=== PATIENT | female | born 1945 | race Caucasian/White ===

== ENCOUNTER 2023-11-17 11:32 | Inpatient (IN) ==
--- NOTE | 2023-11-17 12:28 | XRay Report ---
XR chest 1V portable HISTORY: Weakness. stroke alert COMPARISON: None. FINDINGS: There are low lung volumes. No pneumothorax. The heart is mildly enlarged. Spinal stimulato r leads are noted. There is mild central pulmonary vascular congestion without overt edema. There are trace bilateral pleural effusions. Degenerative changes within the shoulders. No acute fractures louise ntified. A few bibasilar linear densities favor subsegmental atelectasis. IMPRESSION: Cardiomegaly with mild pulmonary vascular congestion and trace bilateral pleural effusions. ACT 112: Negative or not required by law. Electronically signed by: Tom Menon M.D. 11/17/2023 12:27 PM
[2023-11-17 12:34] LABS: Albumin Globulin Ratio 1.6 (0.9-2); Albumin Level 4.1 gm/dl (3.4-5.0); BUN Creatinine Ratio 24.7 (10-20); Bilirubin,Total 0.4 mg/dl (0.2-1.0); Calcium 9.4 mg/dl (8.6-10.3); Creatinine Clr Calc Pharmacy 50.9 ml/min; Est GFR (African American) 64.8 ml/min; Est GFR (Non-African American) 55.9 ml/min; Globulin 2.6 gm/dl (2.5-4.0); Potassium 4.3 mmol/L (3.5-5.1); Total Protein 6.7 gm/dl (6.0-8.3)
[2023-11-17 12:36] LABS: iSTAT Creatinine 0.9 mg/dl (0.6-1.3); iSTAT Hemoglobin 14.6 g/dl (12.0-16.0); iSTAT Ionized Calcium 1.19 mmol/l (1.12-1.32); iSTAT Potassium 4.1 mmol/L (3.3-5.0)
[2023-11-17] MEDS ORDERED: OPTIRAY 320 125ml IV ONE (12:38)
[2023-11-17 12:39] LABS: Hematocrit (blood only) 43.2 % (37.0-47.0); Hemoglobin 14.8 g/dl (12.0-16.0); Mean Corpuscular Hemoglobin 32.2 pg (25.0-34.0); Mean Corpuscular Hgb Conc 34.3 g/dL (32.0-36.0); Mean Corpuscular Volume 93.9 fL (80.0-100.0); Mean Platelet Volume 9.5 fL (9.4-12.4); Platelet Count 257 K/uL (130-400); RDW Coefficient of Variation 13.6 % (11.5-14.5); RDW Standard Deviation 46.6 fL (36.4-46.3); White Blood Count 11.14 K/ul (4.8-10.8)
[2023-11-17 12:46] LABS: INR 0.9 (0.9-1.1); Partial Thromboplastin Ratio 0.8; Partial Thromboplastin Time 23 Seconds (21-31); Prothrombin Time 10.3 Seconds (9.0-12.0)
--- NOTE | 2023-11-17 12:54 | Emergency Department Note ---
Impression & Plan Stroke ED Provider Note NAME: IVETH WATT AGE: 78 SEX: F : 1945 ARRIVES VIA: Ambulance INFORMANT: Patient, ED PROVIDER(S): Bethany Ayoub MD CHIEF COMPLAINT: Left-sided weakness HPI: This is a 78-year-old female presenting for left-sided weakness. Patient states that for the past few days she has noticed a possible facial droop as well as somewhat slurred speech. She is evaluated by a physician at her memory care unit yesterday and was thought to be related to a prednisone tapering dose. Woke up this morning with symptoms of left-sided upper and lower extremity weakness as well as worsening facial droop. Patient at this time tells me that she cannot tell me exactly when this started, at minimum over 1 day ago. Otherwise patient is generally able to ambulate on her own and do her daily activities. ROS: See above HPI for pertinent positives & negatives. A total of 10 systems reviewed and were otherwise negative. PAST MEDICAL HISTORY: See Below PAST SURGICAL HISTORY: See Below FAMILY HISTORY: See Below SOCIAL HISTORY: See Below HOME MEDICATIONS: See Below ALLERGIES: See Below VITALS: See Below PHYSICAL EXAMINATION: General: resting comfortably in no acute distress Head: Normocephalic and atraumatic Eyes: Normal inspection, extraocular muscles intact Ear, nose, throat: Normal external exam Neck: Normal range of motion Respiratory: lungs clear to auscultation bilaterally Cardiovascular: Regular rate/rhythm, no murmur GI: soft, nontender, no guarding or rebound Extremities: nontender, moves all extremities Neuro: The patient awake and alert, appropriately conversive, 3/5 strength in left upper and lower extremity, 5/5 strength in right upper and lower extremity, right-sided facial droop Skin: Warm, dry, and intact MEDICAL DECISION MAKING: This 78-year-old female presenting for left-sided weakness. Patient has a clear constellation of stroke symptoms such as left-sided weakness, right-sided facial droop. No aphasia slight dysarthria. -Due to significant length of symptoms, no stroke alert was initiated as she was out of window for tPA -CT of the head reveals no acute ischemic process -CTA of the head/neck revealed no acute LVO -Will admit for further stroke workup at this time -No leukocytosis, no anemia, no electrolyte disturbances, no UTI Differential diagnosis: Stroke, UTI, hemorrhage ER treatment provided: See below Diagnostics interpreted by me: ECG: ECG independently interpreted by me with normal sinus rhythm with PVCs, rate of 83, first-degree AV block, bifascicular block normal QTc, no ST segment elevations consistent with STEMI criteria Cardiac Monitoring: An order was placed for continuous cardiac monitoring. The monitor shows a rate of 80 with sinus rhythm. Laboratory studies: As stated above and show below. Imaging studies: See below. Past Med/Surg History Medical History (Updated 11/18/23 @ 19:51 by Bethany Ayoub MD) Constipation Mixed urge and stress incontinence Depression CAD (coronary atherosclerotic disease) Rheumatoid arthritis Cognitive communication deficit Chronic pain syndrome Hypothyroidism Asthma GERD (gastroesophageal reflux disease) Hypertension Unspecified dementia, unspecified severity, without behavioral disturbance, psychotic disturbance, mood disturbance, and anxiety Social History Smoking Status: Never smoker Hx Alcohol Use: No Hx Substance Use: No Preferred Language: Luxembourgish Communication Ability: Impaired Environmental Monitoring Specialist Required: No Current Living Situation: Senior Living Current Living Situation Comment: [facility] Feels Safe at Home: Yes Assistive Devices: Wheelchair Allergies Allergies Allergy/AdvReac Type Severity Reaction Status Date / Time ibuprofen Allergy Unknown Unknown Verified 11/17/23 14:56 propylthiouracil Allergy Unknown Unknown Verified 11/17/23 14:56 Home Meds Home Medications Medication Instructions Recorded Confirmed Milk of Magnesia 30 ml PO DAILY PRN Constipation 11/17/23 11/17/23 Tums 2 tab PO Q6H PRN indigestion 11/17/23 11/17/23 acetaminophen 650 mg CO Q6H PRN Fever 11/17/23 11/17/23 acetaminophen 325 mg tablet 650 mg PO Q6H PRN pain 1-4 11/17/23 11/17/23 (Tylenol) acetaminophen 325 mg tablet 650 mg PO Q6H PRN temp >100 11/17/23 11/17/23 (Tylenol) amlodipine 2.5 mg tablet 2.5 mg PO .@79911/17/23 11/17/23 aspirin 81 mg tablet,delayed 81 mg PO .@0800 11/17/23 11/17/23 release bisacodyl 10 mg rectal suppository 10 mg CO DAILY PRN Constipation 11/17/23 11/17/23 (Dulcolax (bisacodyl)) clopidogrel 75 mg tablet 75 mg PO .@79911/17/23 11/17/23 conjugated estrogens 0.625 mg/gram 1 applic vaginal . CHENTE SHARMA @ 11/17/23 11/17/23 vaginal cream (Premarin) 2029 cyanocobalamin (vitamin B-12) 2,500 mcg sublingual .@79911/17/23 11/17/23 2,500 mcg sublingual tablet diclofenac sodium 1 % topical gel 1 inch topical .0830,1230,1630,202911/17/23 11/17/23 docusate sodium 100 mg capsule 200 mg PO .@202911/17/23 11/17/23 duloxetine 60 mg capsule,delayed 60 mg PO .@202911/17/23 11/17/23 release folic acid 1 mg tablet 1 mg PO .@79911/17/23 11/17/23 furosemide 20 mg tablet 20 mg PO .@79911/17/23 11/17/23 hydrocodone 10 mg-acetaminophen 1 tab PO Q6H PRN pain 5-10 11/17/23 11/17/23 325 mg tablet isosorbide mononitrate 60 mg 60 mg PO .@79911/17/23 11/17/23 tablet,extended release 24 hr levothyroxine 125 mcg tablet 125 mcg PO .@42911/17/23 11/17/23 melatonin 3 mg tablet 3 mg PO .@202911/17/23 11/17/23 methenamine hippurate 1 gram tablet 1 g PO .@202911/17/23 11/17/23 mirabegron 50 mg tablet,extended 50 mg PO .@79911/17/23 11/17/23 release 24 hr (Myrbetriq) mirtazapine 30 mg tablet 30 mg PO .@79911/17/23 11/17/23 omega-3 fatty acids 1,000 mg PO .@79911/17/23 11/17/23 potassium chloride 10 mEq 10 meq PO .@0830, 1630 11/17/23 11/17/23 tablet,extended release prednisone 10 mg tablet 10 mg PO .Nov & 11/17/23 11/17/23 propylene glycol 0.6 % eye drops 2 drp ophthalmic (eye) DAILY PRN 11/17/23 11/17/23 (Systane Balance) Dry Eye(S) sodium phosphates 19 gram-7 118 ml CO DAILY PRN Constipation 11/17/23 11/17/23 gram/118 mL enema (Fleet Enema) Results & Data (ED) Vital Signs Vital Signs - 24 hr 11/17/23 11:40 11/17/23 11:50 11/17/23 12:03 Temperature 36.9 C Temperature Source Oral Pulse Rate 83 85 Pulse Strength Normal Respiratory Rate 20 Respiratory Effort / Characteristics Non-Labored Respiratory Depth Normal Respiratory Pattern Regular Blood Pressure 163/81 H Blood Pressure Mean 108 Blood Pressure Position Lying Pulse Oximetry 95 95 Oxygen Delivery Method Room Air Room Air Sepsis Recent Fever Within 48 Hours No Sepsis New/Unexplained Change in Mental Status No Sepsis Action Taken by Nursing No Action Required 11/17/23 12:20 Temperature Temperature Source Pulse Rate Pulse Strength Respiratory Rate Respiratory Effort / Characteristics Respiratory Depth Respiratory Pattern Blood Pressure Blood Pressure Mean Blood Pressure Position Pulse Oximetry 98 Oxygen Delivery Method Room Air Sepsis Recent Fever Within 48 Hours Sepsis New/Unexplained Change in Mental Status Sepsis Action Taken by Nursing Laboratory Data 11/18/23 03:23 11/18/23 03:23 Lab Results 11/17/23 11/17/23 11/17/23 Range/Units 11:44 11:50 12:20 WBC 11.14 H (4.8-10.8) K/ul RBC 4.60 (4.20-5.40) M/uL Hgb 14.8 (12.0-16.0) g/dl POC Hgb 14.6 (12.0-16.0) g/dl Hct 43.2 (37.0-47.0) % POC Hct 43 (37-47) % MCV 93.9 (80.0-100.0) fL MCH 32.2 (25.0-34.0) pg MCHC 34.3 (32.0-36.0) g/dL RDW Std Deviation 46.6 H (36.4-46.3) fL RDW Coeff of Julius 13.6 (11.5-14.5) % Plt Count 257 (130-400) K/uL MPV 9.5 (9.4-12.4) fL PT 10.3 (9.0-12.0) Seconds INR 0.9 (0.9-1.1) APTT 23 (21-31) Seconds PTT Ratio 0.8 POC Sodium 139 (135-144) mmol/L Sodium 138 (136-145) mmol/L POC Potassium 4.1 (3.3-5.0) mmol/L Potassium 4.3 (3.5-5.1) mmol/L POC Chloride 103 (101-112) mmol/L Chloride 103 (98-107) mmol/L Carbon Dioxide 26 (21-32) mmol/L POC Total CO2 24 (24-31) mmol/L Anion Gap 9 (3-11) POC Anion Gap 17.0 (16-25) mmol/L POC BUN 27 H (7-18) mg/dl BUN 24 H (6-23) mg/dl Creatinine 0.97 (0.6-1.2) mg/dl POC Creatinine 0.9 (0.6-1.3) mg/dl Est Cr Clr Drug Dosing 50.9 ml/min Est GFR ( Amer) 64.8 ml/min Est GFR (Non-Af Amer) 55.9 ml/min BUN/Creatinine Ratio 24.7 H (10-20) Glucose 177 H (70-99(Fasting)) mg/dl POC Glucose 252 H (70-99) mg/dl POC Glucose (other) 178 H (70-99) mg/dl Calcium 9.4 (8.6-10.3) mg/dl POC Ioniz Calcium Latrice 1.19 (1.12-1.32) mmol/l Magnesium 2.0 (1.7-2.4) mg/dl Total Bilirubin 0.4 (0.2-1.0) mg/dl AST 15 (13-39) U/L ALT 8 (7-52) U/L Alkaline Phosphatase 88 (34-104) U/L Total Protein 6.7 (6.0-8.3) gm/dl Albumin 4.1 (3.4-5.0) gm/dl Globulin 2.6 (2.5-4.0) gm/dl Albumin/Globulin Ratio 1.6 (0.9-2) Administered Medications Hydrocodone Bitart/Acetaminophen (Hydrocodone/Acetaminophen 10/325 Tab) 1 tab PO Q6H PRN PRN Reason: pain 5-10 Stop: 12/01/23 18:01 Last Admin: 11/17/23 21:46 Dose: 1 tab Documented By: JUSTIN Amlodipine Besylate (Amlodipine Besylate 5 Mg Tab) 2.5 mg PO [facility] Stop: 12/18/23 08:59 Last Admin: 11/18/23 10:42 Dose: 2.5 mg Documented By: HERMANN Aspirin (Aspirin 81 Mg Ectab) 81 mg PO [facility] Stop: 12/18/23 08:59 Last Admin: 11/18/23 10:42 Dose: 81 mg Documented By: HERMANN Atorvastatin Calcium (Atorvastatin 40 Mg Tab) 80 mg PO DAILY [facility] Stop: 12/18/23 11:59 Last Admin: 11/18/23 12:52 Dose: Not Given Documented By: HARRISON Clopidogrel Bisulfate (Clopidogrel Bisulfate 75 Mg Tab) 75 mg PO [facility] Stop: 12/18/23 08:59 Last Admin: 11/18/23 10:42 Dose: 75 mg Documented By: HERMANN Diclofenac Sodium (Diclofenac Sod 1% Gel 100 Gm Tube) 2 - 4 gm EXT QID@0830,1230,1630,2030 [facility]; Protocol Stop: 12/17/23 20:29 Last Admin: 11/18/23 18:48 Dose: 2 gm Documented By: Admin: 11/18/23 12:53 Dose: 2 gm Documented By: Admin: 11/18/23 10:41 Dose: 4 gm Documented By: Admin: 11/17/23 21:46 Dose: 2 gm Documented By: JUSTIN Docusate Sodium (Docusate Sodium 100 Mg Cap) 200 mg PO [facility] Stop: 12/17/23 20:59 Last Admin: 11/17/23 21:46 Dose: 200 mg Documented By: JUSTIN Duloxetine HCl (Duloxetine Hcl 60 Mg Cap) 60 mg PO [facility] Stop: 12/17/23 20:59 Last Admin: 11/17/23 21:47 Dose: 60 mg Documented By: JUSTIN Estrogens Conjugated (Premarin Vag Crm 14 Appln/30 Gm Tube) 1 appln PV TuTh@2030 [facility] Stop: 12/17/23 20:29 Last Admin: 11/17/23 21:47 Dose: Not Given Documented By: JUSTIN Folic Acid (Folic Acid 1 Mg Tab) 1 mg PO DAILY [facility] Stop: 12/18/23 08:59 Last Admin: 11/18/23 10:42 Dose: 1 mg Documented By: HERMANN Furosemide (Furosemide 20 Mg Tab) 20 mg PO DAILY [facility] Stop: 12/18/23 08:59 Last Admin: 11/18/23 10:42 Dose: 20 mg Documented By: HERMANN Isosorbide Mononitrate (Isosorbide [place] Extended Rel 60 Mg Tabcr) 60 mg PO DAILY [facility] Stop: 12/18/23 08:59 Last Admin: 11/18/23 10:43 Dose: 60 mg Documented By: HERMANN Levothyroxine S[facility] ([facility] 125 [facility]g Tablet) [facility]: 12/18/23 06:29 Last Admin: 11/18/23 07:05 Dose: 125 mcg Documented By: JUSTIN Melatonin (Melatonin 3 Mg Tab) 3 mg PO [facility] Stop: 12/17/23 20:59 Last Admin: 11/17/23 21:47 Dose: 3 mg Documented By: JUSTIN Methenamine Hippurate (Methenamine Hippurate 1 Gm Tab) 1 gm PO BID [facility] Stop: 12/17/23 20:59 Last Admin: 11/18/23 10:43 Dose: 1 gm Documented By: Admin: 11/17/23 21:47 Dose: 1 gm Documented By: JUSTIN Mirtazapine (Mirtazapine Tab 15 Mg Tab) 30 mg PO DAILY [facility] Stop: 12/18/23 08:59 Last Admin: 11/18/23 10:43 Dose: 30 mg Documented By: HERMANN Potassium Chloride (Potassium Chloride 10 Meq Tabcr) 10 meq PO BID [facility] Stop: 12/17/23 20:59 Last Admin: 11/18/23 10:43 Dose: 10 meq Documented By: Admin: 11/17/23 21:46 Dose: 10 meq Documented By: JUSTIN Vibegron (Vibegron 75 Mg Tab) 75 mg PO DAILY [facility]; Protocol Stop: 12/18/23 08:59 Last Admin: 11/18/23 10:43 Dose: 75 mg Documented By: HERMANN Discontinued Medications Aspirin (Aspirin 81 Mg Chew) 243 mg PO NOW STA Stop: 11/17/23 13:45 Last Admin: 11/17/23 15:38 Dose: Not Given Documented By: AYDEN Aspirin (Aspirin 300 Mg Supp) 300 mg CO ONE ONE Stop: 11/17/23 15:37 Last Admin: 11/17/23 16:15 Dose: 300 mg Documented By: SAJAN Ioversol (Optiray 320 125ml) 115 ml IV ONCE ONE Stop: 11/17/23 12:39 Last Admin: 11/17/23 12:42 Dose: 115 ml Documented By: WYATT Imaging Data Radiologist's Impression: Chest X-Ray 11/17/23 12:03 XR chest 1V portable HISTORY: Weakness. stroke alert COMPARISON: None. FINDINGS: There are low lung volumes. No pneumothorax. The heart is mildly enlarged. Spinal stimulator leads are noted. There is mild central pulmonary vascular congestion without overt edema. There are trace bilateral pleural effusions. Degenerative changes within the shoulders. No acute fractures identified. A few bibasilar linear densities favor subsegmental atelectasis. IMPRESSION: Cardiomegaly with mild pulmonary vascular congestion and trace bilateral pleural effusions. ACT 112: Negative or not required by law. Electronically signed by: Tom Menon M.D. 11/17/2023 12:27 PM Discharge Plan Visit Data Chief Complaint: Stroke/CVA Symptoms ED Provider: Bethany Ayoub Discharge Problem: Stroke Patient Disposition: Admitted As Inpatient Discharge Instructions Interventions: ED Discharge Assessment Last Done: 11/17/23 18:03
--- NOTE | 2023-11-17 13:03 | CT Scan Report ---
CT SCAN OF THE BRAIN WITHOUT IV CONTRAST CLINICAL HISTORY: Neurological deficit. Stroke like symptoms. Left-sided weakness. COMPARISON STUDY: No priors. TECHNIQUE: Unenhanced axial CT scan of the brain is performed from the vertex to the skull base. A do se lowering technique was utilized adhering to the principles of ALARA. FINDINGS: Brain parenchyma: There is age-related involutional change noting moderate confluent subcortical and periventricular microangiopathic disease. There is no hemorrhage, mass effect, or evidence of acute t erritorial ischemia by CT criteria. There is heterogeneous low attenuation present within both thalam i, right greater than left. A chronic lacunar infarct is noted in the right internal capsule. No extr a-axial fluid collection is seen. Ventricles, sulci, cisterns: Prominent secondary to involutional change. Intracranial vasculature: There is atherosclerotic calcification of the cavernous carotid and vertebr al arteries. Calvarium: Unremarkable. Sinuses and mastoids: The paranasal sinuses are clear. The mastoid air cells are well pneumatized. Orbits: The bony orbits are grossly intact. IMPRESSION: 1. There is no hemorrhage, mass effect, or evidence of acute territorial ischemia by CT criteria. 2. There is heterogeneously diminished attenuation present within both thalami, right greater than le ft. This is of indeterminate chronicity. MRI correlation is recommended to assess for acute to subacu te ischemia. ACT 112: Negative or not required by law. Electronically signed by: Deng Quevedo M.D. 11/17/2023 1:02 PM
--- NOTE | 2023-11-17 13:13 | CT Scan Report ---
NECK CTA HISTORY: Stroke, L weakness TECHNIQUE: Multiaxial CT images of the neck were performed following the intravenous administration o f contrast to evaluate the major cervical vessels. 3D/MIP images were also obtained. Sagittal and cor onal reformats were reviewed. All measurements were calculated based on NASCET criteria. A dose low ering technique was utilized adhering to the principles of ALARA. COMPARISON STUDY: None. FINDINGS: The aortic arch and proximal great vessels are widely patent. There is no significant sten osis, occlusion, or dissection identified within the bilateral common carotid or vertebral arteries. Moderate calcified plaque within the bilateral carotid bifurcations. This results in up to 40% stenos is within the takeoff of the right internal carotid artery. No significant stenosis within the left i nternal carotid artery. IMPRESSION: No high-grade stenosis, occlusion, or dissection identified within the carotid or vertebral arteries. ACT 112: Negative or not required by law. Electronically signed by: Tom Menon M.D. 11/17/2023 1:11 PM
--- NOTE | 2023-11-17 13:23 | CT Scan Report ---
CT angio head w con CLINICAL HISTORY: 78 years-old Female with LVO, L weakness. Acute strokelike symptoms with left-si ded weakness COMPARISON STUDY: Head CT of same day TECHNIQUE: Following the IV administration of 115 cc of Optiray, CT angiogram of the brain was perfor med from the skull base to the vertex. Images are reviewed in the axial, sagittal, and coronal planes . 3-D MIPS images are created and assessed. IV contrast was administered without complication. All me asurements were obtained according to NASCET criteria. A dose lowering technique was utilized adherin g to the principles of ALARA. FINDINGS: Motion degraded exam. CT ANGIOGRAM OF THE BRAIN: Atherosclerosis of the clinoid and supraclinoid segments of the internal carotid arteries without hig h-grade stenosis. There is moderate multifocal narrowing throughout the right middle cerebral artery. The left middle cerebral artery is generally patent. The anterior cerebral arteries are patent. Mild to moderate multifocal luminal narrowing of the posterior cerebral arteries. There is no aneurysm, h igh-grade stenosis, or proximal branch occlusion identified. Dural sinuses appear patent. White matter hypodensities are noted with ill-defined additional hypodense foci within the bilateral thalami and lentiform nuclei. IMPRESSION: 1. Moderate multifocal luminal narrowing throughout the right middle cerebral artery. 2. No aneurysm, dissection, high-grade stenosis or proximal branch occlusion identified. 3. Nonspecific ill-defined white matter and basal ganglia hypodensities suggestive of chronic microva scular ischemic disease with age-indeterminate lacunar infarcts. ACT 112: Negative or not required by law. The above report was generated using voice recognition software. It may contain grammatical, syntax o r spelling errors. Electronically signed by: Oral Andrew M.D. 11/17/2023 1:21 PM
--- NOTE | 2023-11-17 13:40 | History & Physical Report ---
Date of Service November 17, 2023 Assessment & Plan (1) Stroke-like symptoms: Plan: Slurred speech, left-sided facial droop, left-sided UE/LE deficits in the morning of 11/17 Unclear last known well; symptoms first noticed this morning, but may have been present for the last few days Patient outside the window of TNKase eligibility Patient is unable to provide a timeline of her symptoms given confusion and memory deficits (which been ongoing due to her unspecified dementia); however, A&Ox3 on arrival Head CT on arrival revealed no hemorrhage, mass effect, or evidence of acute territorial ischemia; however, noted heterogeneously to space attenuation within both thalami, right greater than left (indeterminate chronicity) Head CTA noted moderate multifocal luminal narrowing within the right MCA; no aneurysm, dissection, or high-grade stenosis Neck CTA without high-grade stenosis, occlusion, or dissection Brain MRI ordered, pending; will hold chemical DVT PPx until MRI returns Note: MRI reached out as patient has a spinal stimulator, but does not have the remote (which is needed to place the spinal stimulator and MRI safe mode) Patient reports she has not had remote for several years Spoke with neurology who recommended repeating head CT in 6h; ordered, pending Glucose 178 on arrival Echocardiogram with bubble study ordered, pending Patient failed dysphagia screen at bedside due to facial droop; keep n.p.o. for now Aspirin 243 mg ordered (per review of center care paperwork, patient was given aspirin 81 mg on the morning of 11/17); however, given failed dysphagia screen ordered aspirin 300 mg WV Patient also takes Plavix 75 mg daily for her heart stents Neurochecks q4h Permissive hypertension; treat BP if SBP>220 or DBP>120 Fall precautions No BP, labs, IVs in the LUE PT/OT consulted; left side nonweightbearing; patient is usually on a walker at baseline Speech therapy eval given continued facial droop and slurred speech A.m. CBC, BMP, fasting lipid panel, A1c (2) Unspecified dementia, unspecified severity, without behavioral disturbance, psychotic disturbance, mood disturbance, and anxiety: Plan: A&Ox3 on arrival Confusion and memory deficits have been ongoing, per patient (3) Hypertension: Plan: BP 163/81 on arrival Permissive HTN in the setting of strokelike symptoms Continue amlodipine, isosorbide mononitrate (4) Hypothyroidism: Plan: Continue levothyroxine (5) Rheumatoid arthritis: Plan: Patient was previously started on a prednisone taper on 11/12/2023; she took prednisone 60 mg p.o. daily on 11/12 and 11/13, 50 mg p.o. daily on 11/14 and 11/15, and 40 mg p.o. daily on 11/16 and 11/17; hold prednisone for now, as this is the only recent change in medications Continue diclofenac gel; apply to hands, wrists, knees topically 4 times a day for joint pain Acetaminophen as needed for pain Hydrocodoneacetaminophen as needed for breakthrough pain (6) CAD (coronary atherosclerotic disease): Plan: Prior AL EKG on arrival showed sinus rhythm with PVCs at 83 bpm; QTc 484 Continue aspirin, Plavix daily (7) Depression: Plan: Continue duloxetine, mirtazapine (8) Mixed urge and stress incontinence: Plan: Continue mirabegron Continue methenamine hippurate, and Premarin vaginal cream for UTI prophylaxis (9) Constipation: Plan: Continue bisacodyl, docusate sodium Plan Disposition: Admit to PCU telemetry Full code Keep n.p.o. for now pending dysphagia screen, then advance to regular diet with thin consistency as tolerated VTE PPx: SCDs (will hold chemical DVT PPx for 24h in the setting of acute strokelike symptoms) History of Present Illness Chief Complaint: Stroke/CVA symptoms Primary Care Provider: [place] Rocael Rodriguez is a 78-year-old female with PMH of dementia, TIA, HTN, GERD, asthma, hypothyroidism, dysphagia, cognitive communication deficit, and chronic pain syndrome. She presented via EMS from [facility] for strokelike symptoms. Patient presents with some memory deficits, and confusion, and is not able to provide a timeline of events. She notes that she has had ongoing difficulties with memory, as well as balance and strength issues due to her rhe umatoid arthritis. However, she notes that her left-sided deficits are acute, and that she had left-sided facial droop, slurred speech this morning. Last known well was yesterday on 11/16. Patient is unsure if she is ever had a CVA in the past. Patient is wheelchair-bound at baseline; she uses a walker for exercise. She took all of her morning medications, which is managed by [facility]. Only recent change in medications was that the patient was started on a 10-day prednisone taper on 11/12 (starting at 60 mg p.o. daily) for her RA. Patient denies alcohol, tobacco, and recreational drug use. She notes she was recently exposed to someone with COVID on 11/07; however she has tested negative since and has not had symptoms. Patient is hypertensive at 163/81 at time of admission; vitals otherwise stable ED course: ROS: Patient endorses increased slurred speech, left-sided facial droop, urinary frequency, left-sided weakness worse than right, and joint pain (which she believes is a flare up of her arthritis) Patient denies fever, chills, night-sweats, difficulty swallowing, GERMAIN, changes in vision/hearing/taste/smell, cough, dizziness, lightheadedness, CP, SOB, pleuritic CP, abdominal pain, N/V/D, burning with urination, dysuria, or numbness/tingling in the arms/legs. Allergies Allergy/AdvReac Type Severity Reaction Status Date / Time ibuprofen Allergy Unknown Unknown Verified 11/17/23 14:56 propylthiouracil Allergy Unknown Unknown Verified 11/17/23 14:56 Home Medications Medication Instructions Recorded Confirmed Type Milk of Magnesia 30 ml PO DAILY PRN Constipation 11/17/23 11/17/23 History Tums 2 tab PO Q6H PRN indigestion 11/17/23 11/17/23 History acetaminophen 650 mg WV Q6H PRN Fever 11/17/23 11/17/23 History acetaminophen 325 mg tablet 650 mg PO Q6H PRN pain 1-4 11/17/23 11/17/23 History (Tylenol) acetaminophen 325 mg tablet 650 mg PO Q6H PRN temp >100 11/17/23 11/17/23 History (Tylenol) amlodipine 2.5 mg tablet 2.5 mg PO .@0800 11/17/23 11/17/23 History aspirin 81 mg tablet,delayed 81 mg PO .@00 11/17/23 11/17/23 History release bisacodyl 10 mg rectal suppository 10 mg WV DAILY PRN Constipation 11/17/23 11/17/23 History (Dulcolax (bisacodyl)) clopidogrel 75 mg tablet 75 mg PO .@0800 11/17/2304/24 History conjugated estrogens 0.625 mg/gram 1 applic vaginal . CHENTE SHARMA @ 11/17/23 11/17/23 History vaginal cream (Premarin) 2029 cyanocobalamin (vitamin B-12) 2,500 mcg sublingual .@79911/17/23 11/17/23 History 2,500 mcg sublingual tablet diclofenac sodium 1 % topical gel 1 inch topical .0830,1230,163,202911/17/23 11/17/23 History docusate sodium 100 mg capsule 200 mg PO .@202911/17/23 11/17/23 History duloxetine 60 mg capsule,delayed 60 mg PO .@202911/17/23 11/17/23 History release folic acid 1 mg tablet 1 mg PO .@79911/17/23 11/17/23 History furosemide 20 mg tablet 20 mg PO .@79911/17/23 11/17/23 History hydrocodone 10 mg-acetaminophen 1 tab PO Q6H PRN pain 5-10 11/17/23 11/17/23 History 325 mg tablet isosorbide mononitrate 60 mg 60 mg PO .@79911/17/23 11/17/23 History tablet,extended release 24 hr levothyroxine 125 mcg tablet 125 mcg PO .@42911/17/23 11/17/23 History melatonin 3 mg tablet 3 mg PO .@202911/17/23 11/17/23 History methenamine hippurate 1 gram tablet 1 g PO .@202911/17/23 11/17/23 History mirabegron 50 mg tablet,extended 50 mg PO .@79911/17/23 11/17/23 History release 24 hr (Myrbetriq) mirtazapine 30 mg tablet 30 mg PO .@79911/17/23 11/17/23 History omega-3 fatty acids 1,000 mg PO .@79911/17/23 11/17/23 History potassium chloride 10 mEq 10 meq PO .@0830, 1630 11/17/23 11/17/23 History tablet,extended release prednisone 10 mg tablet 10 mg PO .Nov & 11/17/23 11/17/23 History propylene glycol 0.6 % eye drops 2 drp ophthalmic (eye) DAILY PRN 11/17/23 11/17/23 History (Systane Balance) Dry Eye(S) sodium phosphates 19 gram-7 118 ml WV DAILY PRN Constipation 11/17/23 11/17/23 History gram/118 mL enema (Fleet Enema) Past Med/Surg History Medical History (Updated 11/17/23 @ 13:38 by Tom Kee PA-C) Constipation Mixed urge and stress incontinence Depression CAD (coronary atherosclerotic disease) Rheumatoid arthritis Cognitive communication deficit Chronic pain syndrome Hypothyroidism Asthma GERD (gastroesophageal reflux disease) Hypertension Unspecified dementia, unspecified severity, without behavioral disturbance, psychotic disturbance, mood disturbance, and anxiety Social History Smoking Status: Never smoker Preferred Language: Mohawk Feels Safe at Home: Yes Review of Systems Review of Systems: See HPI above Physical Exam Physical Exam: General: no acute distress; pleasant affect; left-sided facial droop; slurred speech; non-toxic appearing; well-nourished; cooperative HEENT: no scleral icterus; PERRLA w/ EOMs intact; moist mucus membrane; vision and hearing intact; patient demonstrates ability to protrude and wiggle tongue bilaterally; she is able to raise her eyebrows without unilateral deficits; she reports that sensation in the face is the same on both sides measured at 3 dermatomes via light touch Neck: supple; no lymphadenopathy; trachea midline; patient is able to rotate head, but exhibits some difficulty with shrugging her shoulders Skin: warm, dry without signs of tenting; no cyanosis; no rashes, bruising, lesions, or erythema noted CV: chest wall NTP; RRR; S1/S2 normal; no murmurs/rubs/gallops; pulses intact at radial, DP, and PT Lungs: no acute respiratory distress; symmetrical chest wall expansion; clear breath sounds across all lung chapman w/o adventitious sounds; no wheezing ABD: Soft, NTP; BS present; no rebound/guarding; mild distention secondary to body habitus MSK: no tics or fasciculations; nonpitting edema noted in the LEs b/l, nonerythematous; patient demonstrates ability to wiggle toes bilaterally; 5/5 RLE strength when lifting off the bed, 2/5 LLE strength when lifting off the bed; she is barely able to bend her left knee; 5/5 merchandise adjustment clerk strength in the right hand, 4/5 merchandise adjustment clerk strength in left hand; patient is unable to lift her right arm off the bed without picking up with her left; positive pronator drift; gross unilateral deficits on the left side Neuro: A&Ox3; slurred speech; she is unable to report if her sensation is intact, symmetric in the LEs or UEs bilaterally Results & Data Results & Data Vital Signs (Past 12 Hours) Vital Signs Temp Pulse Resp BP Pulse Ox O2 Del Method 11/17/23 12:20 98 Room Air 11/17/23 12:03 95 Room Air 11/17/23 11:50 85 11/17/23 11:40 36.9 C 83 20 163/81 H 95 Room Air Laboratory Results Abnormal lab results 11/17/23 11/17/23 11/17/23 Range/Units 11:44 11:50 12:20 WBC 11.14 H (4.8-10.8) K/ul RDW Std Deviation 46.6 H (36.4-46.3) fL POC BUN 27 H (7-18) mg/dl BUN 24 H (6-23) mg/dl BUN/Creatinine Ratio 24.7 H (10-20) Glucose 177 H (70-99(Fasting)) mg/dl POC Glucose 252 H (70-99) mg/dl POC Glucose (other) 178 H (70-99) mg/dl Diagnostic Findings Chest X-Ray 11/17/23 12:03 XR chest 1V portable HISTORY: Weakness. stroke alert COMPARISON: None. FINDINGS: There are low lung volumes. No pneumothorax. The heart is mildly enlarged. Spinal stimulator leads are noted. There is mild central pulmonary vascular congestion without overt edema. There are trace bilateral pleural effusions. Degenerative changes within the shoulders. No acute fractures identified. A few bibasilar linear densities favor subsegmental atelectasis. IMPRESSION: Cardiomegaly with mild pulmonary vascular congestion and trace bilateral pleural effusions. ACT 112: Negative or not required by law. Electronically signed by: Tom Menon M.D. 11/17/2023 12:[address] 11/17/23 12:03 CT SCAN OF THE BRAIN WITHOUT IV CONTRAST CLINICAL HISTORY: Neurological deficit. Stroke like symptoms. Left-sided weakness. COMPARISON STUDY: No priors. TECHNIQUE: Unenhanced axial CT scan of the brain is performed from the vertex to the skull base. A dose lowering technique was utilized adhering to the principles of ALARA. FINDINGS: Brain parenchyma: There is age-related involutional change noting moderate confluent subcortical and periventricular microangiopathic disease. There is no hemorrhage, mass effect, or evidence of acute territorial ischemia by CT criteria. There is heterogeneous low attenuation present within both thalami, right greater than left. A chronic lacunar infarct is noted in the right internal capsule. No extra-axial fluid collection is seen. Ventricles, sulci, cisterns: Prominent secondary to involutional change. Intracranial vasculature: There is atherosclerotic calcification of the cav ernous carotid and vertebral arteries. Calvarium: Unremarkable. Sinuses and mastoids: The paranasal sinuses are clear. The mastoid air cells are well pneumatized. Orbits: The bony orbits are grossly intact. IMPRESSION: 1. There is no hemorrhage, mass effect, or evidence of acute territorial ischemia by CT criteria. 2. There is heterogeneously diminished attenuation present within both thalami, right greater than left. This is of indeterminate chronicity. MRI correlation is recommended to assess for acute to subacute ischemia. ACT 112: Negative or not required by law. Electronically signed by: Deng Quevedo M.D. 11/17/2023 1:02 PM Head CTA 11/17/23 12:03 CT angio head w con CLINICAL HISTORY: 78 years-old Female with LVO, L weakness. Acute strokelike symptoms with left-sided weakness COMPARISON STUDY: Head CT of same day TECHNIQUE: Following the IV administration of 115 cc of Optiray, CT angiogram of the brain was performed from the skull base to the vertex. Images are reviewed in the axial, sagittal, and coronal planes. 3-D MIPS images are created and assessed. IV contrast was administered without complication. All measurements were obtained according to NASCET criteria. A dose lowering technique was utilized adhering to the principles of ALARA. FINDINGS: Motion degraded exam. CT ANGIOGRAM OF THE BRAIN: Atherosclerosis of the clinoid and supraclinoid segments of the internal carotid arteries without high-grade stenosis. There is moderate multifocal narrowing throughout the right middle cerebral artery. The left middle cerebral artery is generally patent. The anterior cerebral arteries are patent. Mild to moderate multifocal luminal narrowing of the posterior cerebral arteries. There is no aneurysm, high-grade stenosis, or proximal branch occlusion identified. Dural sinuses appear patent. White matter hypodensities are noted with ill-defined additional hypodense foci within the bilateral thalami and lentiform nuclei. IMPRESSION: 1. Moderate multifocal luminal narrowing throughout the right middle cerebral artery. 2. No aneurysm, dissection, high-grade stenosis or proximal branch occlusion identified. 3. Nonspecific ill-defined white matter and basal ganglia hypodensities suggestive of chronic microvascular ischemic disease with age-indeterminate lacunar infarcts. ACT 112: Negative or not required by law. The above report was generated using voice recognition software. It may contain grammatical, syntax or spelling errors. Electronically signed by: Oral Andrew M.D. 11/17/2023 1:21 PM Neck CTA 11/17/23 12:03 NECK CTA HISTORY: Stroke, L weakness TECHNIQUE: Multiaxial CT images of the neck were performed following the intra venous administration of contrast to evaluate the major cervical vessels. 3D/MIP images were also obtained. Sagittal and coronal reformats were reviewed. All measurements were calculated based on NASCET criteria. A dose lowering technique was utilized adhering to the principles of ALARA. COMPARISON STUDY: None. FINDINGS: The aortic arch and proximal great vessels are widely patent. There i s no significant stenosis, occlusion, or dissection identified within the bilateral common carotid or vertebral arteries. Moderate calcified plaque within the bilateral carotid bifurcations. This results in up to 40% stenosis within the takeoff of the right internal carotid artery. No significant stenosis within the left internal carotid artery. IMPRESSION: No high-grade stenosis, occlusion, or dissection identified within the carotid or vertebral arteries. ACT 112: Negative or not required by law. Electronically signed by: Tom Menon M.D. 11/17/2023 1:11 PM Code Status & VTE Plan Code Status Full code VTE Prophylaxis Plan VTE Prophylaxis will be ordered: Yes Supervising Physician Co-Signing Physician Notes Patient seen and examined, chart reviewed, case discussed with Tom Kee PA-C and I agree with the assessment and plan as above except as otherwise noted Labs and images reviewed 78-year-old female who presents with slurred speech, left upper and lower extremity deficits. Unclear last known well, symptoms began at the latest yesterday but have been present for up to potentially 1 week, is not a TNKase candidate. Head CT without acute hemorrhage or territorial ischemia but thalamic attenuation is noted and MRI is currently limited by spinal stimulator for which we do not have the remote at this time. Interval CT ordered in 6 hours. Patient clinical presentation is currently consistent with stroke outside of thrombolytic window and with no proximal/large vessel occlusion seen on angiography. Agree with secondary risk management, blood pressure control as noted, neurology consulted and ongoing antiplatelet recommendations pending. She is not able to pass bedside swallow due to left-sided facial droop, rectal aspirin ordered and speech consulted. At bedside assessment left hip flexion, elbow flexion, merchandise adjustment clerk 4 -/5 with drift and easy fatigue compared to robust 5/5 strength on the right. No sensory deficit to soft touch in hands or feet. As patient has had deficits for more than 24 hours, outside of the initial window for permissive hypertension and can treated to blood pressure goal of less than systolic 180 and continue antihypertensives at this time . agree with assessment and management as noted above PG Care Time/CCT Total # of Minutes Spent Total Time Spent with Patient: Total time spent is greater than 50% in coordination of care (as documented) at patient's floor/unit and/or counseling patient: [place] [address] INT INP/OBS CARE 3/75MIN Patient Type New History Comprehensive Exam Comprehensive Medical Decision Making High Complexity Diagnoses Stroke-like symptoms R29.90 Unspecified dementia, unspecified severity, without behavioral disturbance, psychotic disturbance, mood disturbance, and anxiety F03.90 Hypertension I10 Hypothyroidism E03.9 Rheumatoid arthritis M06.9 CAD (coronary atherosclerotic disease) I25.10 Depression F32.A Mixed urge and stress incontinence N39.46 Constipation K59.00
[2023-11-17] MEDS ORDERED: ASPIRIN 81 MG CHEW PO STA (13:44)
[2023-11-17] MEDS ORDERED: ASPIRIN CHEW 324 MG PO STA (13:44)
[2023-11-17] MEDS ORDERED: PHARMACIST DISCHARGE MED REC CONSULT PRN (14:11)
--- NOTE | 2023-11-17 14:47 | Electrocardiogram Report ---
Test Reason : Blood Pressure : / mmHG Vent. Rate : 083 BPM Atrial Rate : 083 BPM P-R Int : 202 ms QRS Dur : 144 ms QT Int : 412 ms P-R-T Axes : 031 -51 000 degrees QTc Int : 484 ms Sinus rhythm with Premature ventricular complexes or Fusion complexes Right bundle branch block Left anterior fascicular block Bifascicular block Abnormal ECG No previous ECGs available Confirmed by José Luis Jean-Baptiste ([id number]) on 11/17/2023 2:47:12 PM Referred By: Confirmed By:José Luis Jean-Baptiste
[2023-11-17] MEDS ORDERED: ASPIRIN 300 MG SUPP PR ONE (15:36)
--- NOTE | 2023-11-17 16:10 | XCELERA ---
[id number]
[2023-11-17 17:47] LABS: Appearance Urine Clear (Clear); Bilirubin Urine Negative (Negative); Blood Urine Negative (Negative); Color Urine Yellow; Glucose Urine UA Negative (Negative); Ketones Urine Negative (Negative); Leukocyte Esterase Urine Negative (Negative); Nitrite Urine Negative (Negative); Protein Urine Negative (Negative); Specific Gravity Urine 1.019 (1.000-1.030); Urobilinogen Urine Negative (Negative); pH Urine 6.5 (4.5-7.5)
[2023-11-17] MEDS ORDERED: bisacodyL 10 MG SUPP PR PRN (18:02)
[2023-11-17] MEDS ORDERED: ACETAMINOPHEN 325 MG TAB PO PRN (18:02)
[2023-11-17] MEDS ORDERED: SOD PHOSPHATE/SOD BIPHOSPHATE ENEMA 132 ML BTL PR PRN (18:02)
--- NOTE | 2023-11-17 18:32 | CT Scan Report ---
HEAD CT NONCONTRAST CT DOSE: 703.85 mGy.cm HISTORY: Follow-up abnormal head CT. Unable to perform brain MRI, head CT repeat at 6h TECHNIQUE: Multiaxial CT images of the head were performed without the use of intravenous contrast. A utomated exposure control was utilized for this study. A dose lowering technique was utilized adheri ng to the principles of ALARA. Comparison: Head CT 11/17/2023. Findings: The paranasal sinuses and mastoid air cells are clear. The calvarium and skull base are int act. There is no mass, hematoma, midline shift. White matter hypodensity is nonspecific but suggestiv e of microvascular ischemic change. The ventricles and sulci demonstrate mild age-related involutiona l changes. Small linear residual contrast seen within the brain from the prior CT examination. Patchy areas of hypodensity within the thalami and debora remains unchanged. Impression: 1. No significant change compared to the prior study. 2. Patchy areas of hypodensity within the thalami and debora remains unchanged. This could be due to ch ronic microvascular ischemic changes, demyelination, toxic/metabolic changes, or less likely central pontine myelolysis. Recommend correlation with the patient's sodium levels for further evaluation. 3. A [address] follow-up recommended to ensure stability. ACT 112: Negative or not required by law. Electronically signed by: Tom Menon M.D. 11/17/2023 6:30 PM
[2023-11-17] MEDS ORDERED: ARTIFICIAL TEARS OP PRN (18:36)
[2023-11-17] MEDS ORDERED: MAGNESIUM HYDROXIDE SUSP 30 ML UDC PO PRN (18:39)
[2023-11-17] MEDS ORDERED: PREMARIN VAG CRM 14 APPLN/30 GM TUBE PV SCH (20:30)
[2023-11-17] MEDS: POTASSIUM CHLORIDE 10 MEQ TABCR PO SCH (21:46)
[2023-11-17] MEDS: DOCUSATE SODIUM 100 MG CAP PO SCH (21:46)
[2023-11-17] MEDS: DICLOFENAC SOD 1% GEL 100 GM TUBE EXT SCH (21:46)
[2023-11-17] MEDS: HYDROcodone/ACETAMINOPHEN 10/325 TAB PO PRN (21:46)
[2023-11-17] MEDS: METHENAMINE HIPPURATE 1 GM TAB PO SCH (21:47)
[2023-11-17] MEDS: MELATONIN 3 MG TAB PO SCH (21:47)
[2023-11-17] MEDS: DULoxetine HCL 60 MG CAP PO SCH (21:47)
[2023-11-18 03:59] LABS: Basophils # (auto) 0.06 K/uL (0.00-0.20); Basophils % (auto) 0.6 %; Eosinophils # (auto) 0.13 K/uL (0.00-0.50); Eosinophils % (auto) 1.3 %; Hematocrit (blood only) 45.1 % (37.0-47.0); Hemoglobin 15.4 g/dl (12.0-16.0); Immature Granulocytes # (auto) 0.05 K/uL (0.01-0.20); Immature Granulocytes % (auto) 0.5 %; Lymphocytes # (auto) 1.65 K/uL (1.20-3.40); Lymphocytes % (auto) 16.4 %; Mean Corpuscular Hemoglobin 31.5 pg (25.0-34.0); Mean Corpuscular Hgb Conc 34.1 g/dL (32.0-36.0); Mean Corpuscular Volume 92.2 fL (80.0-100.0); Mean Platelet Volume 9.4 fL (9.4-12.4); Monocytes # (auto) 1.07 K/uL (0.11-0.59); Monocytes % (auto) 10.6 %; Neutrophils # (auto) 7.12 K/uL (1.40-6.50); Neutrophils % (auto) 70.6 %; Platelet Count 261 K/uL (130-400); RDW Coefficient of Variation 13.3 % (11.5-14.5); RDW Standard Deviation 45.6 fL (36.4-46.3); Red Blood Count 4.89 M/uL (4.20-5.40); White Blood Count 10.08 K/ul (4.8-10.8)
[2023-11-18 04:12] LABS: BUN Creatinine Ratio 29.6 (10-20); Calcium 9.7 mg/dl (8.6-10.3); Chol HDL Ratio 3.9 (0-5); Est GFR (African American) 80.6 ml/min; Est GFR (Non-African American) 69.6 ml/min
[2023-11-18] MEDS: LEVOTHYROXINE SODIUM 125 MCG TABLET PO SCH (07:05)
[2023-11-18 07:20] LABS: Estimated Average Glucose 120 mg/dl; Hemoglobin A1C 5.8 % (4.5-5.6)
[2023-11-18] MEDS: DICLOFENAC SOD 1% GEL 100 GM TUBE EXT SCH ×4 (10:41→21:27)
[2023-11-18] MEDS: amLODIPine BESYLATE 5 MG TAB PO SCH (10:42)
[2023-11-18] MEDS: CLOPIDOGREL BISULFATE 75 MG TAB PO SCH (10:42)
[2023-11-18] MEDS: FUROSEMIDE 20 MG TAB PO SCH (10:42)
[2023-11-18] MEDS: FOLIC ACID 1 MG TAB PO SCH (10:42)
[2023-11-18] MEDS: ASPIRIN 81 MG ECTAB PO SCH (10:42)
[2023-11-18] MEDS: ISOSORBIDE MONO EXTENDED REL 60 MG TABCR PO SCH (10:43)
[2023-11-18] MEDS: MIRTAZAPINE TAB 15 MG TAB PO SCH (10:43)
[2023-11-18] MEDS: POTASSIUM CHLORIDE 10 MEQ TABCR PO SCH ×2 (10:43→20:47)
[2023-11-18] MEDS: VIBEGRON 75 MG TAB PO SCH (10:43)
[2023-11-18] MEDS: METHENAMINE HIPPURATE 1 GM TAB PO SCH ×2 (10:43→20:47)
--- NOTE | 2023-11-18 11:13 | Pharmacy Report ---
- Date of Service November 18, 2023 - Pharmacy CVA/TIA Medication Review Medications to Prevent Stroke handout has been added to the patients discharge packet. Antiplatelet(s) * Aspirin 81 mg PO AM * Clopidogrel 75 mg PO AM Cholesterol * High intensity statin: atorvastatin 40 mg daily DVT Prophylaxis * SCD knee Therapeutic Anticoagulation * No history of Afib/Aflutter noted Type 2 Diabetes * Patient does not have T2DM
[2023-11-18] MEDS ORDERED: ATORVASTATIN 40 MG TAB PO SCH (12:00)
--- NOTE | 2023-11-18 12:01 | Hospitalist Progress Note ---
Date of Service November 18, 2023 Assessment & Plan (1) Stroke-like symptoms: Plan: Slurred speech, left-sided facial droop, left-sided UE/LE deficits in the morning of 11/17. These seem to be improving. Patient does still have some left- sided facial droop and left extremity weakness. Unclear last known well; symptoms first noticed this morning, but may have been present for the last few days Patient outside the window of TNKase eligibility Head CT on arrival revealed no hemorrhage, mass effect, or evidence of acute territorial ischemia; however, noted heterogeneously to space attenuation within both thalami, right greater than left (indeterminate chronicity) Head CTA noted moderate multifocal luminal narrowing within the right MCA; no aneurysm, dissection, or high-grade stenosis Neck CTA without high-grade stenosis, occlusion, or dissection Brain MRI ordered, pending; will hold chemical DVT PPx until MRI returns Note: MRI reached out as patient has a spinal stimulator, but does not have the remote (which is needed to place the spinal stimulator and MRI safe mode) Patient reports she has not had remote for several years Spoke with neurology who recommended repeating head CT in 6h; ordered - similar to prior. 24 hour follow up ordered and pending Echocardiogram with bubble study with no wallmotion abnormality. Injection of contrast was suboptimal for documentation of an interatrial shunt Patient failed dysphagia screen at bedside due to facial droop but seems to be swallowing well now. No withnesed aspiration with thin liquids Aspirin 243 mg ordered (per review of center care paperwork, patient was given aspirin 81 mg on the morning of 11/17); however, given failed dysphagia screen ordered aspirin 300 mg MN Patient also takes Plavix 75 mg daily for her heart stents Neurochecks and Fall precautions per protocol PT/OT consulted; left side nonweightbearing; patient is usually on a walker at baseline Speech therapy eval given continued facial droop and slurred speech (2) Unspecified dementia, unspecified severity, without behavioral disturbance, psychotic disturbance, mood disturbance, and anxiety: Plan: A&Ox3 on arrival Confusion and memory deficits have been ongoing, per patient (3) Hypertension: Plan: BP 163/81 on arrival Continue home amlodipine, isosorbide mononitrate (4) Hypothyroidism: Plan: Continue levothyroxine (5) Rheumatoid arthritis: Plan: Patient was previously started on a prednisone taper on 11/12/2023; she took prednisone 60 mg p.o. daily on 11/12 and 11/13, 50 mg p.o. daily on 11/14 and 11/15, and 40 mg p.o. daily on 11/16 and 11/17; hold prednisone for now, as this is the only recent change in medications Continue diclofenac gel; apply to hands, wrists, knees topically 4 times a day for joint pain Acetaminophen as needed for pain Hydrocodoneacetaminophen as needed for breakthrough pain (6) CAD (coronary atherosclerotic disease): Plan: Prior RI EKG on arrival showed sinus rhythm with PVCs at 83 bpm; QTc 484 Continue aspirin, Plavix daily (7) Depression: Plan: Continue duloxetine, mirtazapine (8) Mixed urge and stress incontinence: Plan: Continue mirabegron Continue methenamine hippurate, and Premarin vaginal cream for UTI prophylaxis (9) Constipation: Plan: Continue bisacodyl, docusate sodium Plan Disposition: Admit to PCU telemetry Full code Advanced to regular diet with thin consistency and tolerated VTE PPx: SCDs (will hold chemical DVT PPx for 24h in the setting of acute strokelike symptoms) Await repeat CT Head this evening Admission and Anticipated Discharge Date Admission Date: November 17, 2023 Supervising Physician Co-Signing Physician Notes Attending Attestation - Chart reviewed, care plan d/w [facility] Wilkinson. I agree w/ the guzman components of his documentation. Await neuro consultation for additional recs. Santo Escobedo MD Subjective Attending Dr. Escobedo This is a 78-year-old female that was admitted yesterday for 7 slurred speech, left upper and lower extremity deficits. Unclear last known well, symptoms began at the latest yesterday but have been present for up to potentially 1 week, is not a TNKase candidate. Head CT without acute hemorrhage or territorial ischemia but thalamic attenuation is noted and MRI is currently limited by spinal stimulator for which we do not have the remote at this time. Interval CT ordered in 6 hours. Patient clinical presentation is currently consistent with stroke outside of thrombolytic window and with no proximal/large vessel occlusion seen on angiography. Patient recently exposed to someone with COVID over the holiday. Unsure if this is contributing to her encephalopathy. COVID, RSV, influenza assay has been ordered Patient still has some left-sided weakness and pronator drift on the left side. Pupils are equal round and reactive to light. No slurred speech. Minimal left- sided facial droop. She appears to be alert and oriented x 3. Patient denies headache, acute vision changes, difficulty with word finding, chest pain, tightness. No reported dysphagia. Patient has no other acute complaints Review of Systems 2 Review of Systems: A total of 10 systems was reviewed and is negative other than as listed in the HPI Physical Exam 2 Physical Exam: GENERAL : No acute distress EYES: No icterus, gaze conjugate NOSE: No evidence of epistaxis MOUTH: No lesions or candidiasis NECK: Supple LUNGS: CTA B/L, no wheezes, rales or rhonchi HEART: Regular, rate controlled ABDOMEN: Soft, NT, ND, BS Present EXTREMITIES: No LE edema, pedal pulses intact NEURO: A&OX3. Pupils equal round and reactive to light. Tongue midline. Minimal left facial droop. Minimal left pronator drift. There is evidence of weakness on the left side to the upper and lower extremity. Results & Data Results & Data Vital Signs (Past 12 Hours) Vital Signs Pulse Resp BP Pulse Ox 11/18/23 04:01 64 18 144/115 H 95 11/18/23 03:00 65 18 173/114 H 92 11/18/23 02:01 76 18 190/126 H 93 11/18/23 01:03 69 18 191/118 H 96 11/18/23 00:35 68 11/18/23 00:01 67 16 185/113 H 94 Laboratory Results Abnormal lab results 11/17/23 11/17/23 11/18/23 Range/Units 11:50 12:20 03:23 WBC 11.14 H (4.8-10.8) K/ul RDW Std Deviation 46.6 H (36.4-46.3) fL Neut # (Auto) 7.12 H (1.40-6.50) K/uL [place] # (Auto) 1.07 H (0.11-0.59) K/uL POC BUN 27 H (7-18) mg/dl BUN 24 H 24 H (6-23) mg/dl BUN/Creatinine Ratio 24.7 H 29.6 H (10-20) Glucose 177 H (70-99(Fasting)) mg/dl POC Glucose (other) 178 H (70-99) mg/dl Hemoglobin A1c 5.8 H (4.5-5.6) % Cholesterol 356 H (0-200) mg/dl 11/18/23 03:23 11/18/23 03:23 Diagnostic Findings Chest X-Ray 11/17/23 12:03 XR chest 1V portable HISTORY: Weakness. stroke alert COMPARISON: None. FINDINGS: There are low lung volumes. No pneumothorax. The heart is mildly enlarged. Spinal stimulator leads are noted. There is mild central pulmonary vascular congestion without overt edema. There are trace bilateral pleural effusions. Degenerative changes within the shoulders. No acute fractures identified. A few bibasilar linear densities favor subsegmental atelectasis. IMPRESSION: Cardiomegaly with mild pulmonary vascular congestion and trace bilateral pleural effusions. ACT 112: Negative or not required by law. Electronically signed by: Tom Menon M.D. 11/17/2023 12:[address] 11/17/23 12:03 CT SCAN OF THE BRAIN WITHOUT IV CONTRAST CLINICAL HISTORY: Neurological deficit. Stroke like symptoms. Left-sided weakness. COMPARISON STUDY: No priors. TECHNIQUE: Unenhanced axial CT scan of the brain is performed from the vertex to the skull base. A dose lowering technique was utilized adhering to the principles of ALARA. FINDINGS: Brain parenchyma: There is age-related involutional change noting moderate confluent subcortical and periventricular microangiopathic disease. There is no hemorrhage, mass effect, or evidence of acute territorial ischemia by CT criteria. There is heterogeneous low attenuation present within both thalami, right greater than left. A chronic lacunar infarct is noted in the right internal capsule. No extra-axial fluid collection is seen. Ventricles, sulci, cisterns: Prominent secondary to involutional change. Intracranial vasculature: There is atherosclerotic calcification of the cavernous carotid and vertebral arteries. Calvarium: Unremarkable. Sinuses and mastoids: The paranasal sinuses are clear. The mastoid air cells are well pneumatized. Orbits: The bony orbits are grossly intact. IMPRESSION: 1. There is no hemorrhage, mass effect, or evidence of acute territorial ischemia by CT criteria. 2. There is heterogeneously diminished attenuation present within both thalami, right greater than left. This is of indeterminate chronicity. MRI correlation is recommended to assess for acute to subacute ischemia. ACT 112: Negative or not required by law. Electronically signed by: Deng Quevedo M.D. 11/17/2023 1:02 PM Head CTA 11/17/23 12:03 CT angio head w con CLINICAL HISTORY: 78 years-old Female with LVO, L weakness. Acute strokelike symptoms with left-sided weakness COMPARISON STUDY: Head CT of same day TECHNIQUE: Following the IV administration of 115 cc of Optiray, CT angiogram of the brain was performed from the skull base to the vertex. Images are reviewed in the axial, sagittal, and coronal planes. 3-D MIPS images are created and assessed. IV contrast was administered without complication. All measurements were obtained according to NASCET criteria. A dose lowering technique was utilized adhering to the principles of ALARA. FINDINGS: Motion degraded exam. CT ANGIOGRAM OF THE BRAIN: Atherosclerosis of the clinoid and supraclinoid segments of the internal carotid arteries without high-grade stenosis. There is moderate multifocal narrowing throughout the right middle cerebral artery. The left middle cerebral artery is generally patent. The anterior cerebral arteries are patent. Mild to moderate multifocal luminal narrowing of the posterior cerebral arteries. There is no aneurysm, high-grade stenosis, or proximal branch occlusion identified. Dural sinuses appear patent. White matter hypodensities are noted with ill-defined additional hypodense foci within the bilateral thalami and lentiform nuclei. IMPRESSION: 1. Moderate multifocal luminal narrowing throughout the right middle cerebral artery. 2. No aneurysm, dissection, high-grade stenosis or proximal branch occlusion identified. 3. Nonspecific ill-defined white matter and basal ganglia hypodensities suggestive of chronic microvascular ischemic disease with age-indeterminate lacunar infarcts. ACT 112: Negative or not required by law. The above report was generated using voice recognition software. It may contain grammatical, syntax or spelling errors. Electronically signed by: Oral Andrew M.D. 11/17/2023 1:21 PM Neck CTA 11/17/23 12:03 NECK CTA HISTORY: Stroke, L weakness TECHNIQUE: Multiaxial CT images of the neck were performed following the intravenous administration of contrast to evaluate the major cervical vessels. 3D/MIP images were also obtained. Sagittal and coronal reformats were reviewed. All measurements were calculated based on NASCET criteria. A dose lowering technique was utilized adhering to the principles of ALARA. COMPARISON STUDY: None. FINDINGS: The aortic arch and proximal great vessels are widely patent. There is no significant stenosis, occlusion, or dissection identified within the bilateral common carotid or vertebral arteries. Moderate calcified plaque within the bilateral carotid bifurcations. This results in up to 40% stenosis within the takeoff of the right internal carotid artery. No significant stenosis within the left internal carotid artery. IMPRESSION: No high-grade stenosis, occlusion, or dissection identified within the carotid or vertebral arteries. ACT 112: Negative or not required by law. Electronically signed by: Tom Menon M.D. 11/17/2023 1:[address] 11/17/23 18:[address] DOSE: 703.85 mGy.cm HISTORY: Follow-up abnormal head CT. Unable to perform brain MRI, head CT repeat at 6h TECHNIQUE: Multiaxial CT images of the head were performed without the use of intravenous contrast. Automated exposure control was utilized for this study. A dose lowering technique was utilized adhering to the principles of ALARA. Comparison: Head CT 11/17/2023. Findings: The paranasal sinuses and mastoid air cells are clear. The calvarium and skull base are intact. There is no mass, hematoma, midline shift. White matter hypodensity is nonspecific but suggestive of microvascular ischemic change. The ventricles and sulci demonstrate mild age-related involutional changes. Small linear residual contrast seen within the brain from the prior CT examination. Patchy areas of hypodensity within the thalami and debora remains unchanged. Impression: 1. No significant change compared to the prior study. 2. Patchy areas of hypodensity within the thalami and debora remains unchanged. This could be due to chronic microvascular ischemic changes, demyelination, toxic/metabolic changes, or less likely central pontine myelolysis. Recommend correlation with the patient's sodium levels for further evaluation. 3. A [address] follow-up recommended to ensure stability. ACT 112: Negative or not required by law. Electronically signed by: Tom Menon M.D. 11/17/2023 6:30 PM PG Care Time/CCT Total # of Minutes Spent Total Time Spent with Patient: Total time spent is greater than 50% in coordination of care (as documented) at patient's floor/unit and/or counseling patient: Coding Level of Care Code 65435 SUB INP/OBS CARE 2/35MIN Diagnoses Stroke-like symptoms R29.90 Unspecified dementia, unspecified severity, without behavioral disturbance, psychotic disturbance, mood disturbance, and anxiety F03.90 Hypertension I10 Hypothyroidism E03.9 Rheumatoid arthritis M06.9 CAD (coronary atherosclerotic disease) I25.10 Depression F32.A Mixed urge and stress incontinence N39.46 Constipation K59.00 Time Spent (min) 30
[2023-11-18] MEDS: ATORVASTATIN 40 MG TAB PO SCH (12:52)
--- NOTE | 2023-11-18 20:32 | CT Scan Report ---
Exam(s): CT HEAD Without Contrast EXAM: CT Head Without Intravenous Contrast CLINICAL HISTORY: Reason for exam: Stroke like symptoms. TECHNIQUE: Axial computed tomography images of the head/brain without intravenous contrast. CTDI is 44.28 mGy and DLP is 750.68 mGy-cm. Automated exposure control was utilized for the study. A dose lowering technique was utilized adhering to the principles of ALARA. COMPARISON: 11/17/2023. FINDINGS: Brain: Mild generalized brain atrophy. Extensive areas of decreased attenuation within the deep white matter including bilateral thalami and basal ganglia region, unchanged in the interval. No hemorrhage. Ventricles: Unremarkable. No ventriculomegaly. Bones/joints: Unremarkable. No acute fracture. Soft tissues: Unremarkable. Sinuses: Unremarkable as visualized. No acute sinusitis. Mastoid air cells: Unremarkable as visualized. No mastoid effusion. IMPRESSION: 1. Extensive diffuse white matter changes as described, stable in the interval. Specifically, hypodensities in the bilateral thalami and debora, are stable with wide differential diagnosis including demyelinating disease, ischemic changes of indeterminate age and pontine myelinolysis. 2. No acute intracranial hemorrhage or space-occupying lesion. Electronically signed by: Naomi Vides MD 11/18/23 20:31 PM
[2023-11-18] MEDS: MELATONIN 3 MG TAB PO SCH (20:47)
[2023-11-18] MEDS: DULoxetine HCL 60 MG CAP PO SCH (20:47)
[2023-11-18] MEDS: DOCUSATE SODIUM 100 MG CAP PO SCH (20:47)
[2023-11-18] MEDS: HYDROcodone/ACETAMINOPHEN 10/325 TAB PO PRN (21:46)
[2023-11-18 21:52] LABS: Influenza A virus by PCR Negative (Neg); Influenza B virus by PCR Negative (Neg); RSV by PCR Negative (Neg); SARS CoV2 RNA(COVID-19) Ceph NEGATIVE (Negative)
[2023-11-19 07:22] LABS: Basophils # (auto) 0.07 K/uL (0.00-0.20); Basophils % (auto) 0.8 %; Eosinophils # (auto) 0.46 K/uL (0.00-0.50); Eosinophils % (auto) 5.3 %; Hematocrit (blood only) 49.6 % (37.0-47.0); Hemoglobin 16.4 g/dl (12.0-16.0); Immature Granulocytes # (auto) 0.06 K/uL (0.01-0.20); Immature Granulocytes % (auto) 0.7 %; Lymphocytes # (auto) 0.97 K/uL (1.20-3.40); Lymphocytes % (auto) 11.1 %; Mean Corpuscular Hemoglobin 31.4 pg (25.0-34.0); Mean Corpuscular Hgb Conc 33.1 g/dL (32.0-36.0); Mean Corpuscular Volume 94.8 fL (80.0-100.0); Mean Platelet Volume 9.2 fL (9.4-12.4); Monocytes # (auto) 0.87 K/uL (0.11-0.59); Neutrophils # (auto) 6.28 K/uL (1.40-6.50); Neutrophils % (auto) 72.1 %; Platelet Count 242 K/uL (130-400); RDW Coefficient of Variation 13.5 % (11.5-14.5); Red Blood Count 5.23 M/uL (4.20-5.40); White Blood Count 8.71 K/ul (4.8-10.8)
[2023-11-19] MEDS: LEVOTHYROXINE SODIUM 125 MCG TABLET PO SCH (07:29)
[2023-11-19] MEDS: HYDROcodone/ACETAMINOPHEN 10/325 TAB PO PRN (07:40)
[2023-11-19 07:44] LABS: Calcium 8.9 mg/dl (8.6-10.3); Creatinine Clr Calc Pharmacy 47.3 ml/min; Est GFR (African American) 62.5 ml/min; Est GFR (Non-African American) 53.9 ml/min; Potassium 3.8 mmol/L (3.5-5.1)
[2023-11-19] MEDS: DICLOFENAC SOD 1% GEL 100 GM TUBE EXT SCH ×4 (08:25→20:49)
[2023-11-19] MEDS: VIBEGRON 75 MG TAB PO SCH (08:26)
[2023-11-19] MEDS: ISOSORBIDE MONO EXTENDED REL 60 MG TABCR PO SCH (08:26)
[2023-11-19] MEDS: MIRTAZAPINE TAB 15 MG TAB PO SCH (08:27)
[2023-11-19] MEDS: POTASSIUM CHLORIDE 10 MEQ TABCR PO SCH ×2 (08:27→20:53)
[2023-11-19] MEDS: METHENAMINE HIPPURATE 1 GM TAB PO SCH ×2 (08:27→20:50)
[2023-11-19] MEDS: CLOPIDOGREL BISULFATE 75 MG TAB PO SCH (08:27)
[2023-11-19] MEDS: amLODIPine BESYLATE 5 MG TAB PO SCH (08:28)
[2023-11-19] MEDS: ATORVASTATIN 40 MG TAB PO SCH (08:28)
[2023-11-19] MEDS: FOLIC ACID 1 MG TAB PO SCH (08:29)
[2023-11-19] MEDS: ASPIRIN 81 MG ECTAB PO SCH (08:29)
[2023-11-19] MEDS: FUROSEMIDE 20 MG TAB PO SCH (08:29)
--- NOTE | 2023-11-19 08:35 | Neurology Consultation ---
Date of Consultation November 19, 2023 Assessment & Plan (1) Left hemiparesis: (2) Unspecified dementia, unspecified severity, without behavioral disturbance, psychotic disturbance, mood disturbance, and anxiety: (3) Hypertension: (4) Dyslipidemia: Plan This patient had an episode of acute left hemiparesis November 17 likely due to a small stroke from small vessel ischemic disease. Unfortunately, we cannot obtain an MRI of the brain because of her spinal cord stimulator. CT scans show some hypodensities in the right greater than left thalamic regions as well as the debora. There was a question about right versus left facial weakness. Today I am not convinced there is any obvious weakness bilaterally. The location of the lesion is either right basal ganglia/thalamic (if indeed it was left face, arm, and leg) or pontine (if indeed it was the right face and left arm and leg). In any event she is clinically improving and is already on aspirin and clopidogrel (presumably for cardiac reasons). There is no indication from a neurologic standpoint to be on both antiplatelet medications for more than 3 weeks after an event. Patient has underlying dementia which I would classify as a mild cognitive impairment likely due to vascular origins. She has hypertension and dyslipidemia which are her main risk factors for small vessel ischemic disease. Echocardiogram was largely unremarkable. Recommendations: 1. From a neurologic standpoint, remain on 81 mg aspirin (there is no indication from a neurologic standpoint to be on any higher daily dose of aspirin than 81 mg) and clopidogrel 75 mg daily for 3 weeks and then remain on clopidogrel alone. However, if she is on both antiplatelet medications from a cardiac standpoint, then she has to remain on both. 2. Increase activity as able and continue physical and Occupational Therapy. She has considerable pain and limitations from her rheumatoid arthritis. 3. Control blood pressure as you are doing, aiming for mean arterial pressure of the 95-100. 4. The patient was put on high-dose atorvastatin for the markedly elevated cholesterol of 356. She does have a history of cramping with statins in the past. We will have to watch her for statin side effects. 5. It would be reasonable, if able, to get an MRI of the brain, but we would have to see if her spinal cord stimulator is compatible (check with [employer]?). Otherwise I think it is clear that she has had a small stroke and the MRI might not necessarily change anything clinically. 6. We could follow-up in neurology in several weeks with [facility], if desired Overall, I spent a total of 75 minutes with this case including review of records, review of CT films, direct evaluation of the patient at bedside, report generation, and discussion of the case with the patient and RN at bedside and Dr. Escobedo including differential diagnosis and treatment options. History of Present Illness Reason for Consultation: Patient is a 78-year-old, who I was asked to see at the request of Deng Wilkinson, for neurologic evaluation regarding probable stroke Requesting Physician: Deng Wilkinson PA-C Attending Physician: Santo Escobedo MD History of Present Illness This patient has a history of hypertension, hypothyroidism, and longstanding significant rheumatoid arthritis which gives her considerable diffuse pain in her joints of the limbs and spine. She has a spinal cord stimulator implanted years ago and is apparently post lumbar spine surgery. I have no details regarding any of these issues. There may be a history of TIA or stroke in the past, but the patient is not the best historian and I have no records or details. She did say that she felt that her right face was a little weak for at least a year. Patient has been at [facility] in the memory unit and carries a diagnosis of dementia, most likely mild cognitive impairment with a vascular origin. For several days there was history of some intermittent left-sided weakness and possible facial droop and slurred speech. She woke up November 17 with more significant left-sided weakness. She arrived to the emergency room at 1140 that day with a temperature of 36.9, pulse of 83, respiratory rate 20, blood pressure 163/81, and O2 saturation 95%. She was thought in the emergency room to have weakness in her left arm, left leg, and right face. CBC showed a mildly elevated white count of 11.4 with a normal hemoglobin and hematocrit. Chemistry profile had a mildly elevated BUN and a glucose of 177. Chest x-ray showed cardiomegaly. CT scan showed decreased attenuation in the right greater than the left thalamic regions and the debora. These were nonspecific and age-indeterminate. CT angiography of the head showed some narrowing of the right middle cerebral artery. CT angiography of the neck was unremarkable without any vessel stenosis or anomalies Echocardiogram showed mild left ventricular hypertrophy. She has had [address] scans since admission, most recently late morning of November 18, which have been unchanged compared to the original CT. I reviewed all of the CT films. Nursing reports no new events or issues since admission and she has gained some strength on the left side. She is now eating/swallowing Also. The patient complains of pain diffusely particularly joints of her hands and feet, spine, shoulders, hips, and knees. She believes she is weak in the left arm but both legs feel heavy to her. She denies numbness, dizziness, or headache. She knows she has a problem with her memory. Allergies Allergy/AdvReac Type Severity Reaction Status Date / Time ibuprofen Allergy Unknown Unknown Verified 11/17/23 14:56 propylthiouracil Allergy Unknown Unknown Verified 11/17/23 14:56 Home Medications Medication Instructions Recorded Confirmed Type Milk of Magnesia 30 ml PO DAILY PRN Constipation 11/17/23 11/17/23 History Tums 2 tab PO Q6H PRN indigestion 11/17/23 11/17/23 History acetaminophen 650 mg UT Q6H PRN Fever 11/17/23 11/17/23 History acetaminophen 325 mg tablet 650 mg PO Q6H PRN pain 1-4 11/17/23 11/17/23 History (Tylenol) acetaminophen 325 mg tablet 650 mg PO Q6H PRN temp >100 11/17/23 11/17/23 History (Tylenol) amlodipine 2.5 mg tablet 2.5 mg PO .@79911/17/23 11/17/23 History aspirin 81 mg tablet,delayed 81 mg PO .@79911/17/23 11/17/23 History release bisacodyl 10 mg rectal suppository 10 mg UT DAILY PRN Constipation 11/17/23 11/17/23 History (Dulcolax (bisacodyl)) clopidogrel 75 mg tablet 75 mg PO .@79911/17/23 11/17/23 History conjugated estrogens 0.625 mg/gram 1 applic vaginal . CHENTE SHARMA @ 11/17/23 11/17/23 History vaginal cream (Premarin) 2029 cyanocobalamin (vitamin B-12) 2,500 mcg sublingual .@79911/17/23 11/17/23 History 2,500 mcg sublingual tablet diclofenac sodium 1 % topical gel 1 inch topical .0830,1230,1630,2030 11/17/23 11/17/23 History docusate sodium 100 mg capsule 200 mg PO .@202911/17/23 11/17/23 History duloxetine 60 mg capsule,delayed 60 mg PO .@202911/17/23 11/17/23 History release folic acid 1 mg tablet 1 mg PO .@79911/17/23 11/17/23 History furosemide 20 mg tablet 20 mg PO .@79911/17/23 11/17/23 History hydrocodone 10 mg-acetaminophen 1 tab PO Q6H PRN pain 5-10 11/17/23 11/17/23 History 325 mg tablet isosorbide mononitrate 60 mg 60 mg PO .@79911/17/23 11/17/23 History tablet,extended release 24 hr levothyroxine 125 mcg tablet 125 mcg PO .@42911/17/23 11/17/23 History melatonin 3 mg tablet 3 mg PO .@202911/17/23 11/17/23 History methenamine hippurate 1 gram tablet 1 g PO .@202911/17/23 11/17/23 History mirabegron 50 mg tablet,extended 50 mg PO .@79911/17/23 11/17/23 History release 24 hr (Myrbetriq) mirtazapine 30 mg tablet 30 mg PO .@79911/17/23 11/17/23 History omega-3 fatty acids 1,000 mg PO .@79911/17/23 11/17/23 History potassium chloride 10 mEq 10 meq PO .@0830, 1630 11/17/23 11/17/23 History tablet,extended release prednisone 10 mg tablet 10 mg PO .Nov & 11/17/23 11/17/23 History propylene glycol 0.6 % eye drops 2 drp ophthalmic (eye) DAILY PRN 11/17/23 11/17/23 History (Systane Balance) Dry Eye(S) sodium phosphates 19 gram-7 118 ml UT DAILY PRN Constipation 11/17/23 11/17/23 History gram/118 mL enema (Fleet Enema) Patient History Medical History Constipation Mixed urge and stress incontinence Depression CAD (coronary atherosclerotic disease) Rheumatoid arthritis Cognitive communication deficit Chronic pain syndrome Hypothyroidism Asthma GERD (gastroesophageal reflux disease) Hypertension Unspecified dementia, unspecified severity, without behavioral disturbance, psychotic disturbance, mood disturbance, and anxiety Family History Mother , in her mid 80s of diabetic complications Diabetes Father , in his mid 80s No problems noted. 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 Feels Safe at Home: Yes Assistive Devices: Wheelchair Review of Systems Constitutional: no fever, no fatigue and no weakness Eyes: no diplopia, no eye pain and no worsening vision Ear, Nose, Mouth, Throat: no ear pain, no tinnitus, no hearing loss, no dizziness, no snoring, no hoarseness and no dysphagia Respiratory: no cough and no dyspnea Cardiovascular: no chest pain, no palpitations and no lightheadedness Gastrointestinal: no abdominal pain, no nausea and no vomiting Genitourinary: no dysuria, no urinary frequency and no urinary incontinence Musculoskeletal: + back pain, + neck pain and + joint ellen n; no radicular pain and no myalgia Integumentary: no rash and no lesions Neurologic: + gait abnormality, + localized weakness and + memory loss; no generalized weakness, no tingling, no numbness, no tremor(s), no abnormal movements, no headache(s), no abnormal speech and no confusion Psychiatric: no depression, no irritability, no anxiety, no difficulty concentrating, no confusion and no hallucinations Endocrine: no fatigue and no flushing Hematologic / Lymphatic: no easy bleeding and no easy bruising Allergy / Immunological: no urticaria and no problem reported Exam (Neuro) Physical Exam: The patient is right-handed. The patient is awake, alert, and attentive. Speech is normal without any aphasia or dysarthria. Mood and affect are normal and appropriate. Appearance and grooming are normal. Cognitive processes and memory showed long and short-term deficits. She knew her name and where she was but did not know a lot of details of recent and past medical history. Pupils are 4 mm bilaterally and reactive to light. Extraocular eye muscles are intact without nystagmus. Visual acuity and visual chapman seem normal grossly to confrontation. There are no deficits to sensation in the face in all 3 distributions of the fifth cranial nerve bilaterally. Corneal reflexes are positive bilaterally. Facial strength showed reasonable movement bilaterally. There was a question of some asymmetry with not moving the left upper lip as well as the right but there was also an issue of perhaps the corner of the mouth on the right did not move up with voluntary smile is much as the left. Puffing air in her cheeks seem symmetrical bilaterally. Hearing seems intact grossly to voice and finger rub bilaterally. Palate moves well without asymmetry. There is normal sternocleidomastoid and trapezius strength bilaterally. Tongue is midline with good strength bilaterally. Neck has a full range of motion without discomfort. There are no cervical bruits bilaterally. There are no cranial or ocular bruits. Heart is without murmur. There is a regular rhythm and rate. Cervical, thoracic, and lumbar spine are nontender to palpation. Gait was not tested but stance sitting up in bed on her own was reasonable With outstretched arms there was drift on the left. There are no resting, postural, or action tremors. There is no ataxia with finger to nose testing. There was clumsiness and decreased facility in the left hand compared to the right and slightly in the left foot compared to the right foot. [id number] testing was a little more difficult for her on the left because of some weakness compared to the right which was reasonable. No other abnormal involuntary movements are noted. Motor strength is 5/5 diffusely in the right upper extremity including deltoids, biceps, triceps, brachioradialis, wrist flexors and extensors, database developer, and intrinsic hand muscles. The left upper extremity had 4+/5 strength in the left deltoid and 4/5 strength in the left biceps and triceps. Financial Recruiter and intrinsic muscles were 4/5 on the left. Motor strength is 5/5 diffusely in the right lower extremity including hip flexors, quadriceps, hamstrings, gastrocnemius, tibialis anterior, tibialis posterior, and Peroneii muscles bilaterally. The left lower extremity had 4+/5 strength proximally and distally The limbs have good tone without rigidity or spasticity. There is no atrophy noted in the muscles. Muscle bulk is normal, there is no tenderness to palpation, no myotonia to percussion, and no fasciculations seen. Sensory examination is intact to touch and pin throughout all 4 limbs diffusely. Reflexes are 2/4 in the biceps, triceps, and brachioradialis tendons bilaterally. Quadriceps and Achilles tendons were absent bilaterally. Toes are downgoing with plantar stimulation on the right and equivocal to upgoing on the left. Peripheral pulses are present and of normal quality distally in all 4 limbs. There is no peripheral edema noted in the limbs. Results & Data Vital Signs (Past 12 Hours) Vital Signs Temp Pulse Pulse Resp BP Pulse Ox O2 Del Method 11/19/23 02:42 36.7 C 65 22 137/87 94 Room Air 11/19/23 02:34 36.4 C L 61 18 157/87 H 94 Room Air 11/19/23 00:00 76 11/18/23 22:59 36.8 C 78 21 159/96 H 93 Room Air 11/18/23 21:25 79 18 161/102 H 93 Room Air PG Care Time/CCT Total # of Minutes Spent Total Time Spent with Patient: Total time spent is greater than 50% in coordination of care (as documented) at patient's floor/unit and/or counseling patient: Coding Level of Care Code 50264 INT INP/OBS CARE 3/75MIN Diagnoses Left hemiparesis G81.94 Unspecified dementia, unspecified severity, without behavioral disturbance, psychotic disturbance, mood disturbance, and anxiety F03.90 Hypertension I10 Dyslipidemia E78.5 Time Spent (min) 75
[2023-11-19] MEDS: CALCIUM CARBONATE 500 MG CHEWABLE TAB PO PRN (13:23)
--- NOTE | 2023-11-19 18:40 | Hospitalist Progress Note ---
Date of Service November 19, 2023 Assessment & Plan (1) Stroke: Plan: left-sided symptoms c/w right-sided stroke unfortunately we are not going to have the ability to do MRI - we do not know the make/model of her spinal cord stimulator, don't have the remote to operate it, and she cannot say which hospital or surgeon performed the procedure either way her CT head shows b/l thalamic & pontine lacunes the right-sided stroke seen on CT head would explain her symptoms appreciate Dr Ballesteros's consultation statin advised -- lipids VERY high with LDL > 200 she is on both asa/plavix - will continue both as she has h/o stents for CAD PT, OT, speech evals done echo done and results noted continue on tele - could consider 30-day event monitor to exclude a.fib but small vessel disease likely explains her strokes seen on CT head rather than embolic (and she has MCA atherosclerotic disease on CTA head) cont to monitor (2) Unspecified dementia, unspecified severity, without behavioral disturbance, psychotic disturbance, mood disturbance, and anxiety: Plan: no behavioral disturbance at this time suspect dementia is of vascular origin avoid sedatives (3) Hypertension: Plan: BPs stable today Continue home amlodipine, isosorbide mononitrate (4) Hypothyroidism: Plan: Continue levothyroxine TSH 04/2023 wnl (5) Rheumatoid arthritis: Plan: Patient was previously started on a prednisone taper on 11/12/2023; she took prednisone 60 mg p.o. daily on 11/12 and 11/13, 50 mg p.o. daily on 11/14 and 11/15, and 40 mg p.o. daily on 11/16 and 11/17 Has not been on maintenance medication for 2 years? Continue diclofenac gel to affected joints Acetaminophen as needed for pain Hydrocodoneacetaminophen as needed for breakthrough pain Consider lower dose prednisone (20mg or less) starting in a day or 2 Refer back to rheum after discharge (6) CAD (coronary atherosclerotic disease): Plan: Prior CA Stents by history Continue aspirin, Plavix daily Uncertain why she is not on BB therapy Adding statin for severe hyperlipidemia (7) Depression: Plan: Continue duloxetine, mirtazapine (8) Mixed urge and stress incontinence: Plan: Continue mirabegron Continue methenamine hippurate, and Premarin vaginal cream for UTI prophylaxis (9) Constipation: Plan: Continue bisacodyl, docusate sodium (10) DVT prophylaxis: Plan: add lovenox 40mg daily starting in am (11) Exposure to COVID-19 virus: Plan: recent outpatient testing negative COVID PCR here negative no symptoms or signs of COVID Plan spoke with pt's daughter who lives in [place] -- Radha Marcum, extensive update given secondary contact is another daughter -- Joyce Yates, back to SNF on Tuesday? Tuesday? care d/w Dr Ballesteros from neurology Admission and Anticipated Discharge Date Admission Date: November 17, 2023 Subjective tele overnight wnl patient lying comfortably in bed during the visit she reports ongoing left leg weakness but left arm doing ok today speech clear no swallowing difficulty reports she had her spinal cord stimulator placed 5-6 years ago in [place] doesn't recall the hospital where she had the procedure or the surgeon she mainly complained of severe joint pains in her hands & wrists from her RA has not seen rheum for 2 years last saw a provider in [place] at that time was on prednisone taper starting just before New Year's which did help Review of Systems Review of Systems: CV - no chest pain, no orthopnea pulm - no dyspnea at rest GI - no abd pain neuro - states she doesn't really walk at SNF; mainly uses wheelchair for locomotion Physical Exam Physical Exam: gen - NAD, pleasant, cognitive impairment and memory deficits noted mouth - MMM neck - no JVD face - scant droop of corner of L mouth heart - RRR, s1 s2, no murmur lungs - mild bibasilar fine/dry rales but no wheeze, no increased work of breathing abd - soft NT ND BS+ musculo - severe deformities of all fingers from RA and OA; joint synovitis of both wrists; b/l knee replacement scars neuro - speech fluent/clear; strength L hip flexion 4/5; 5/5 on R; upper ext strength 5/5 b/l ext - trace edema, pulses 2+ b/l Results & Data Results & Data Vital Signs (Past 12 Hours) Vital Signs Temp Pulse Pulse Resp BP Pulse Ox O2 Del Method 11/19/23 15:51 36.7 C 83 18 123/79 92 Room Air 11/19/23 10:45 36.7 C 78 20 126/82 91 Room Air 11/19/23 08:08 36.7 C 78 18 144/95 H 90 Room Air 11/19/23 08:00 66 Laboratory Results Laboratory Results 11/18/23 11/18/23 11/19/23 07:44 20:50 06:33 WBC 8.71 RBC 5.23 Hgb 16.4 H Hct 49.6 H MCV 94.8 MCH 31.4 MCHC 33.1 RDW Std Deviation 47.0 H RDW Coeff of Julius 13.5 Plt Count 242 MPV 9.2 L Immature Gran % (Auto) 0.7 Neut % (Auto) 72.1 Lymph % (Auto) 11.1 Ramsey % (Auto) 10.0 Eos % (Auto) 5.3 Baso % (Auto) 0.8 Neut # (Auto) 6.28 Lymph # (Auto) 0.97 L Ramsey # (Auto) 0.87 H Eos # (Auto) 0.46 Baso # (Auto) 0.07 Immature Gran # (Auto) 0.06 Sodium 139 Potassium 3.8 Chloride 104 Carbon Dioxide 28 Anion Gap 7 BUN 28 H Creatinine 1.00 Est Cr Clr Drug Dosing 47.3 Est GFR ( Amer) 62.5 Est GFR (Non-Af Amer) 53.9 BUN/Creatinine Ratio 28.0 H Glucose 86 Calcium 8.9 Nasal Screen MRSA (PCR) Negative SARS-CoV-2 (PCR) NEGATIVE Influenza Type A (PCR) Negative Influenza Type B (PCR) Negative RSV (RT-PCR) Negative PG Care Time/CCT Total # of Minutes Spent Total Time Spent with Patient: Total time spent is greater than 50% in coordination of care (as documented) at patient's floor/unit and/or counseling patient: Coding Level of Care Code 05183 SUB INP/OBS CARE 3/50MIN Diagnoses Stroke I63.9 Unspecified dementia, unspecified severity, without behavioral disturbance, psychotic disturbance, mood disturbance, and anxiety F03.90 Hypertension I10 Hypothyroidism E03.9 Rheumatoid arthritis M06.9 CAD (coronary atherosclerotic disease) I25.10 Depression F32.A Mixed urge and stress incontinence N39.46 Constipation K59.00 DVT prophylaxis Z29.9 Exposure to COVID-19 virus Z20.822
[2023-11-19] MEDS: DULoxetine HCL 60 MG CAP PO SCH (20:50)
[2023-11-19] MEDS: MELATONIN 3 MG TAB PO SCH (20:54)
[2023-11-19] MEDS: DOCUSATE SODIUM 100 MG CAP PO SCH (20:54)
[2023-11-20] MEDS: LEVOTHYROXINE SODIUM 125 MCG TABLET PO SCH (05:42)
[2023-11-20 07:49] LABS: BUN Creatinine Ratio 32.7 (10-20); Calcium 8.8 mg/dl (8.6-10.3); Creatinine Clr Calc Pharmacy 47.9 ml/min; Est GFR (Non-African American) 55.3 ml/min; Potassium 4.2 mmol/L (3.5-5.1)
[2023-11-20 08:08] LABS: Folate (Folic Acid),Ser orPlas > 22.30 ng/ml (>5.38)
[2023-11-20 08:09] LABS: Vitamin B12 > 1500 pg/ml (180-914)
[2023-11-20] MEDS: ATORVASTATIN 40 MG TAB PO SCH (08:34)
[2023-11-20] MEDS: DICLOFENAC SOD 1% GEL 100 GM TUBE EXT SCH ×4 (08:41→20:13)
[2023-11-20] MEDS: amLODIPine BESYLATE 5 MG TAB PO SCH (08:49)
[2023-11-20] MEDS: FOLIC ACID 1 MG TAB PO SCH (08:50)
[2023-11-20] MEDS: CLOPIDOGREL BISULFATE 75 MG TAB PO SCH (08:50)
[2023-11-20] MEDS: ASPIRIN 81 MG ECTAB PO SCH (08:50)
[2023-11-20] MEDS: FUROSEMIDE 20 MG TAB PO SCH (08:51)
[2023-11-20] MEDS: MIRTAZAPINE TAB 15 MG TAB PO SCH (08:51)
[2023-11-20] MEDS: ISOSORBIDE MONO EXTENDED REL 60 MG TABCR PO SCH (08:51)
[2023-11-20] MEDS: POTASSIUM CHLORIDE 10 MEQ TABCR PO SCH ×2 (08:52→20:16)
[2023-11-20] MEDS: METHENAMINE HIPPURATE 1 GM TAB PO SCH ×2 (08:52→20:16)
[2023-11-20] MEDS: ENOXAPARIN INJ 40 MG/0.4 ML SYR SQ SCH (08:53)
[2023-11-20] MEDS: VIBEGRON 75 MG TAB PO SCH (08:53)
[2023-11-20] MEDS: HYDROcodone/ACETAMINOPHEN 10/325 TAB PO PRN (13:04)
[2023-11-20] MEDS: CALCIUM CARBONATE 500 MG CHEWABLE TAB PO PRN (18:43)
--- NOTE | 2023-11-20 19:34 | Hospitalist Progress Note ---
Date of Service November 20, 2023 Assessment & Plan (1) Stroke: Plan: left-sided symptoms c/w right-sided stroke unfortunately we are not going to have the ability to do MRI - we do not know the make/model of her spinal cord stimulator, don't have the remote to operate it, and she cannot say which hospital or surgeon performed the procedure either way her CT head shows b/l thalamic & pontine lacunes the right-sided stroke seen on CT head would explain her symptoms and signs on exam main issue at this point is left leg weakness especially hip flexion appreciate Dr Ballesteros's consultation statin advised -- lipids VERY high with LDL > 200 she is on both asa/plavix - will continue both as she has h/o stents for CAD PT, OT, speech evals done echo done and results noted continue on tele - could consider 30-day event monitor to exclude a.fib but small vessel disease likely explains her strokes seen on CT head rather than embolic (and she has MCA atherosclerotic disease on CTA head) cont to monitor overnight (2) Unspecified dementia, unspecified severity, without behavioral disturbance, psychotic disturbance, mood disturbance, and anxiety: Plan: no behavioral disturbance at this time suspect dementia is of vascular origin avoid sedatives increase melatonin to 6mg HS to help promote better sleep, etc (3) Hypertension: Plan: BPs stable Continue home amlodipine Continue isosorbide mononitrate (4) Hypothyroidism: Plan: Continue levothyroxine TSH 04/2023 wnl (5) Rheumatoid arthritis: Plan: Patient was previously started on a prednisone taper on 11/12/2023; she took prednisone 60 mg p.o. daily on 11/12 and 11/13, 50 mg p.o. daily on 11/14 and 11/15, and 40 mg p.o. daily on 11/16 and 11/17 Has not been on maintenance medication for 2 years? Continue diclofenac gel to affected joints Acetaminophen as needed for pain Hydrocodoneacetaminophen as needed for breakthrough pain Refer back to rheum after discharge She declines additional prednisone at this time (6) CAD (coronary atherosclerotic disease): Plan: Prior [place] Stents by history Continue aspirin, Plavix daily Uncertain why she is not on BB therapy Adding statin for severe hyperlipidemia - hopefully she tolerates such (7) Depression: Plan: Continue duloxetine, mirtazapine (8) Mixed urge and stress incontinence: Plan: Continue mirabegron Continue methenamine hippurate, and Premarin vaginal cream for UTI prophylaxis (9) Constipation: Plan: Continue bisacodyl, docusate sodium (10) DVT prophylaxis: Plan: lovenox 40mg daily (11) Exposure to COVID-19 virus: Plan: recent outpatient testing negative COVID PCR here negative no symptoms or signs of COVID Plan spoke with pt's daughter who lives in [place] -- Radha Marcum, -- on 11/19/23 extensive update given secondary contact is another daughter -- Joyce Yates, likely can d/c back to [facility] on 11/21/23 Admission and Anticipated Discharge Date Admission Date: November 17, 2023 Subjective tele stable overnight patient was upset during the visit states "I want to go home" she reports that her left leg is still weak no change from yesterday eating well we discussed her rheumatoid arthritis I offered to restart prednisone for her RA flare She declined such at this time Review of Systems Review of Systems: cv - no chest pain pulm - no dyspnea GI - no abd pain Physical Exam Physical Exam: gen - NAD, agitated mouth - MMM neck - no JVD face - scant droop of corner of L mouth nearly resolved heart - RRR, s1 s2, no murmur lungs - minimal bibasilar fine/dry rales but no wheeze, no increased work of breathing abd - soft NT ND BS+ musculo - severe deformities of all fingers from RA and OA; joint synovitis of both wrists looks a little better today; b/l knee replacement scars neuro - speech fluent/clear; strength L hip flexion 4/5; 5/5 on R; upper ext strength 5/5 b/l ext - no edema, pulses 2+ b/l Results & Data Results & Data Vital Signs (Past 12 Hours) Vital Signs Temp Pulse Resp BP Pulse Ox O2 Del Method 11/20/23 19:00 36.7 C 70 20 127/86 93 Room Air 11/20/23 15:00 36.5 C 74 18 127/79 95 Room Air 11/20/23 11:09 36.5 C 76 18 132/84 93 Room Air Laboratory Results Laboratory Results - last 24 hr 11/20/23 06:47 Sodium 137 Potassium 4.2 Chloride 105 Carbon Dioxide 25 Anion Gap 7 BUN 32 H Creatinine 0.98 Est Cr Clr Drug Dosing 47.9 Est GFR ( Amer) 64.0 Est GFR (Non-Af Amer) 55.3 BUN/Creatinine Ratio 32.7 H Glucose 93 Calcium 8.8 Vitamin B12 > 1500 H Folate > 22.30 PG Care Time/CCT Total # of Minutes Spent Total Time Spent with Patient: Total time spent is greater than 50% in coordination of care (as documented) at patient's floor/unit and/or counseling patient: Coding Level of Care Code 88519 SUB INP/OBS CARE 25MIN Diagnoses Stroke I63.9 Unspecified dementia, unspecified severity, without behavioral disturbance, psychotic disturbance, mood disturbance, and anxiety F03.90 Hypertension I10 Hypothyroidism E03.9 Rheumatoid arthritis M06.9 CAD (coronary atherosclerotic disease) I25.10 Depression F32.A Mixed urge and stress incontinence N39.46 Constipation K59.00 DVT prophylaxis Z29.9 Exposure to COVID-19 virus Z20.822
[2023-11-20] MEDS: DOCUSATE SODIUM 100 MG CAP PO SCH (20:13)
[2023-11-20] MEDS: DULoxetine HCL 60 MG CAP PO SCH (20:14)
[2023-11-20] MEDS: ACYCLOVIR 5% OINT 15 GM TUBE EXT SCH (20:15)
[2023-11-20] MEDS ORDERED: MELATONIN 3 MG TAB PO SCH (21:00)
[2023-11-21] MEDS: LEVOTHYROXINE SODIUM 125 MCG TABLET PO SCH (05:47)
[2023-11-21] MEDS: ATORVASTATIN 40 MG TAB PO SCH (08:44)
[2023-11-21] MEDS: DICLOFENAC SOD 1% GEL 100 GM TUBE EXT SCH ×2 (08:49→12:03)
[2023-11-21] MEDS: METHENAMINE HIPPURATE 1 GM TAB PO SCH (08:50)
[2023-11-21] MEDS: amLODIPine BESYLATE 5 MG TAB PO SCH (08:50)
[2023-11-21] MEDS: POTASSIUM CHLORIDE 10 MEQ TABCR PO SCH (08:50)
[2023-11-21] MEDS: FUROSEMIDE 20 MG TAB PO SCH (08:50)
[2023-11-21] MEDS: FOLIC ACID 1 MG TAB PO SCH (08:50)
[2023-11-21] MEDS: CLOPIDOGREL BISULFATE 75 MG TAB PO SCH (08:50)
[2023-11-21] MEDS: ASPIRIN 81 MG ECTAB PO SCH (08:50)
[2023-11-21] MEDS: ACYCLOVIR 5% OINT 15 GM TUBE EXT SCH ×2 (08:50→12:03)
[2023-11-21] MEDS: HYDROcodone/ACETAMINOPHEN 10/325 TAB PO PRN ×2 (08:51→16:08)
[2023-11-21] MEDS: VIBEGRON 75 MG TAB PO SCH (08:51)
[2023-11-21] MEDS: MIRTAZAPINE TAB 15 MG TAB PO SCH (08:51)
[2023-11-21] MEDS: ISOSORBIDE MONO EXTENDED REL 60 MG TABCR PO SCH (08:51)
[2023-11-21] MEDS: ENOXAPARIN INJ 40 MG/0.4 ML SYR SQ SCH (08:51)
--- NOTE | 2023-11-21 13:04 | Discharge Summary ---
Date of Service November 21, 2023 Admission HPI Per Admitting Provider Jennifer is a 78-year-old female with PMH of dementia, TIA, HTN, GERD, asthma, hypothyroidism, dysphagia, cognitive communication deficit, and chronic pain syndrome. She presented via EMS from [facility] for strokelike symptoms. Patient presents with some memory deficits, and confusion, and is not able to provide a timeline of events. She notes that she has had ongoing difficulties with memory, as well as balance and strength issues due to her rheumatoid arthritis. However, she notes that her left-sided deficits are acute, and that she had left-sided facial droop, slurred speech this morning. Last known well was yesterday on 11/16. Patient is unsure if she is ever had a CVA in the past. Patient is wheelchair-bound at baseline; she uses a walker for exercise. She took all of her morning medications, which is managed by [facility]. Only recent change in medications was that the patient was started on a 10-day prednisone taper on 11/12 (starting at 60 mg p.o. daily) for her RA. Patient denies alcohol, tobacco, and recreational drug use. She notes she was recently exposed to someone with COVID on 11/07; however she has tested negative since and has not had symptoms. Patient is hypertensive at 163/81 at time of admission; vitals otherwise stable ED course: ROS: Patient endorses increased slurred speech, left-sided facial droop, urinary frequency, left-sided weakness worse than right, and joint pain (which she believes is a flare up of her arthritis) Patient denies fever, chills, night-sweats, difficulty swallowing, GERMAIN, changes in vision/hearing/taste/smell, cough, dizziness, lightheadedness, CP, SOB, pleuritic CP, abdominal pain, N/V/D, burning with urination, dysuria, or numbness/tingling in the arms/legs. Discharge Exam gen - NAD, agitated mouth - MMM neck - no JVD face - scant droop of corner of L mouth nearly resolved heart - RRR, s1 s2, no murmur lungs - minimal bibasilar fine/dry rales but no wheeze, no increased work of breathing abd - soft NT ND BS+ musculo - severe deformities of all fingers from RA and OA; joint synovitis of both wrists looks a little better today; b/l knee replacement scars neuro - speech fluent/clear; strength L hip flexion 4/5; 5/5 on R; upper ext strength 5/5 b/l ext - no edema, pulses 2+ b/l Discharge Data Allergies Allergy/AdvReac Type Severity Reaction Status Date / Time ibuprofen Allergy Unknown Unknown Verified 11/17/23 14:56 propylthiouracil Allergy Unknown Unknown Verified 11/17/23 14:56 Consultations 11/17/23 13:39 ED Decision to Admit Stat 11/18/23 11:46 Consult Neurology Routine Ordered Studies 11/17/23 12:03 CT head/brain wo con Stat CTA head w con [CT angio head w con] Stat CTA neck with con [CT angio neck with con] Stat 11/17/23 18:00 CT head/brain wo con Routine 11/18/23 18:[address] [CT head/brain wo con] Routine Hospital Course (1) Stroke: left-sided symptoms c/w right-sided stroke unfortunately we are not going to have the ability to do MRI - we do not know the make/model of her spinal cord stimulator, don't have the remote to operate it, and she cannot say which hospital or surgeon performed the procedure either way her CT head shows b/l thalamic & pontine lacunes the right-sided stroke seen on CT head would explain her symptoms and signs on exam main issue at this point is left leg weakness especially hip flexion appreciate Dr Ballesteros's consultation statin advised -- lipids VERY high with LDL > 200 she is on both asa/plavix - will continue both as she has h/o stents for CAD PT, OT, speech evals done echo done and results noted continue on tele - could consider 30-day event monitor to exclude a.fib but small vessel disease likely explains her strokes seen on CT head rather than embolic (and she has MCA atherosclerotic disease on CTA head) cont to monitor overnight (2) Unspecified dementia, unspecified severity, without behavioral disturbance, psychotic disturbance, mood disturbance, and anxiety: no behavioral disturbance at this time suspect dementia is of vascular origin avoid sedatives increase melatonin to 6mg HS to help promote better sleep, etc (3) Hypertension: BPs stable Continue home amlodipine Continue isosorbide mononitrate (4) Hypothyroidism: Continue levothyroxine TSH 04/2023 wnl (5) Rheumatoid arthritis: Patient was previously started on a prednisone taper on 11/12/2023; she took prednisone 60 mg p.o. daily on 11/12 and 11/13, 50 mg p.o. daily on 11/14 and 11/15, and 40 mg p.o. daily on 11/16 and 11/17 Has not been on maintenance medication for 2 years? Continue diclofenac gel to affected joints Acetaminophen as needed for pain Hydrocodoneacetaminophen as needed for breakthrough pain Refer back to rheum after discharge She declines additional prednisone at this time (6) CAD (coronary atherosclerotic disease): Prior [place] Stents by history Continue aspirin, Plavix daily Uncertain why she is not on BB therapy Adding statin for severe hyperlipidemia - hopefully she tolerates such (7) Depression: Continue duloxetine, mirtazapine (8) Mixed urge and stress incontinence: Continue mirabegron Continue methenamine hippurate, and Premarin vaginal cream for UTI prophylaxis (9) Constipation: Continue bisacodyl, docusate sodium (10) DVT prophylaxis: lovenox 40mg daily (11) Exposure to COVID-19 virus: recent outpatient testing negative COVID PCR here negative no symptoms or signs of COVID Plan spoke with pt's daughter who lives in [place] -- Radha Marcum, -- on 11/19/23 extensive update given secondary contact is another daughter -- Joyce Yates, likely can d/c back to [facility] on 11/21/23 Discharge Plan Discharge Items Patient Disposition: Transfer Half-Way Fac Reason For Visit: STROKE-LIKE SYMPTOMS Discharge Diagnosis: 1. suspected right-sided stroke with resulting left leg weakness 2. dementia 3. SEVERE hyperlipidemia 4. CAD 5. severe rheumatoid arthritis 6. hypothyroidism 7. HTN 8. h/o asthma 9. GERD 10. minimal pre-diabetes - hemoglobin a1c 5.8% Activity: Resume your previous activity Non-emergency contact: Primary Care Provider, Specialist and Neurologist Call non-emergency contact if: you have any medication questions and your symptoms worsen Follow-up/Referrals: Jaciel Ballesteros MD [Physician] - (3-4 weeks - follow-up of stroke ) [facility] [Primary Care Provider] - Rolly Stafford DO [Physician] - Diet: Heart Healthy Addtl Attending Provider Instructions: Mrs Lima was hospitalized for suspected stroke. Due to the presence of a spinal cord stimulator we were unable to obtain MRI brain. However, CT head x 2 showed hypodensities in the bilateral thalami and debora. This finding could represent old (or new) stroke. Given her left-sided symptoms the right-sided CT findings certainly could exp lucinda the clinical picture. She was seen in consult by Dr Nikhil Ballesteros from [facility]. He did feel she had had an acute stroke in the right thalamus/debora. Recommendations - 1. continue aspirin and plavix daily 2. START lipitor 40mg once daily for high cholesterol 3. repeat CBC, BMP, and LFTs in 1 week for stability 4. neurology referral - 3-4 weeks for recheck 5. rheumatology referral for severe RA - first available - with [facility] 6. 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 Some specific ways to lower your chance of stroke are: * If you are a smoker, now is the time to stop smoking cigarettes * If you are diabetic, improve the control of your blood sugars * Avoid excessive amounts of alcohol * Control high blood pressure * Lose weight if you are overweight * Be sure to lead an active lifestyle * Eat a healthy diet low in salt, cholesterol and fat You should know about other risk factors for stroke that you are unable to control. These include: * Age 55 years or older * Male gender * Certain racial groups: , or / * Family History of Stroke, Mini stroke or Heart Attack * Sickle Cell Disease Follow Up: It is important for you to keep your follow up appointments with your medical provider. Who to Call and When: Medical Emergencies: Call 911 immediately if you experience any of the following warning signs and symptoms of Stroke: * Sudden numbness or weakness of the face, arm or leg, especially on one side of the body * Sudden confusion, trouble speaking or understanding * Sudden trouble seeing in one or both eyes * Sudden trouble walking, dizziness, loss of balance or coordination * Sudden severe headache with no cause Do not delay calling 911 if you experience any warning signs or symptoms of a stroke. Delay in seeking medical attention may affect what treatments can be given to you. . Pending Studies at Discharge: No Stand-Alone Forms: My [facility] Interactive, Medications to Prevent Stroke Skilled Items Patient informed of condition?: Yes DNR: No Discharge Level of Care: Skilled Communicable Disease: No Discharge Prognosis: Stable Lines: None Urinary Catheter: No Medications and DC Order Prescriptions: New acyclovir [Zovirax] 5 % Ointment 1 applic EXT QID 5 Days Qty: 1 0RF Rx Instructions: apply to upper lip cold sore atorvastatin [Lipitor] 40 mg tablet 40 mg PO DAILY Qty: 30 2RF Continued acetaminophen [Tylenol] 325 mg Tablet 650 mg PO Q6H MDD 3 grams/24h PRN (Reason: pain 1-4) acetaminophen [Tylenol] 325 mg Tablet 650 mg PO Q6H MDD 3grams/24h PRN (Reason: temp >100) cyanocobalamin (vitamin B-12) 2,500 mcg Tablet, Sublingual 2,500 mcg SUBLINGUAL .@0800 amlodipine 2.5 mg tablet 2.5 mg PO .@0800 potassium chloride 10 mEq tablet extended release 10 meq PO .@08, 163 melatonin 3 mg Tablet 3 mg PO .@2029 clopidogrel 75 mg tablet 75 mg PO .@08 aspirin [Aspir-81] 81 mg Tablet,Delayed Release (Dr/Ec) 81 mg PO .@0800 isosorbide mononitrate 60 mg tablet extended release 24 hr 60 mg PO .@08 methenamine hippurate 1 gram tablet 1 g PO .@829, 2029 bisacodyl [Dulcolax (bisacodyl)] 10 mg Suppository 10 mg HI DAILY PRN (Reason: Constipation) Rx Instructions: day 3 of no BM mirtazapine 30 mg tablet 30 mg PO .@0800 Premarin 0.625 mg/gram cream 1 applic vaginal . TUES, THURS @ 2029 levothyroxine 125 mcg tablet 125 mcg PO .@0430 Fleet Enema 19-7 gram/118 mL Enema 118 ml HI DAILY PRN (Reason: Constipation) Rx Instructions: day 4 of no BM docusate sodium 100 mg Capsule 200 mg PO .@2029 folic acid 1 mg tablet 1 mg PO .@0800 furosemide 20 mg tablet 20 mg PO .@0800 [place] 3 Capsule 1,000 mg PO .@0800 duloxetine 60 mg capsule,delayed release(DR/EC) 60 mg PO .@2029 diclofenac sodium 1 % gel 1 inch TOPICAL .0830,1230,1630,2029 Rx Instructions: 2 grams to hand/wrists and 4 grams to knees Systane Balance 0.6 % Drops 2 drp OPHTHALMIC (EYE) DAILY PRN (Reason: Dry Eye(S)) Myrbetriq 50 mg tablet extended release 24 hr 50 mg PO .@0800 Milk of Magnesia 30 ml PO DAILY PRN (Reason: Constipation) Rx Instructions: 7.75%. No bm for 3 days Tums 2 tab PO Q6H PRN (Reason: indigestion ) acetaminophen 650 mg HI Q6H PRN (Reason: Fever) hydrocodone-acetaminophen 10-325 mg tablet 1 tab PO Q6H MDD 3gm Tylenol/24h PRN (Reason: pain 5-10/10 pain scale) Qty: 10 0RF Discontinued prednisone 10 mg tablet 10 mg PO .Nov & Discharge Orders: Discharge Order (Routine); Ordered 11/21/23 Ordered By: Santo Escobedo Admission Data Admit Date/Time: 11/17/23 14:23 Attending Provider: Santo Escobedo Admit Provider: Cale Leyva Primary Care Provider: [facility] Other Providers: Cale Leyva; Jaciel Ballesteros Coding Diagnoses Stroke I63.9 Unspecified dementia, unspecified severity, without behavioral disturbance, psychotic disturbance, mood disturbance, and anxiety F03.90 Hypertension I10 Hypothyroidism E03.9 Rheumatoid arthritis M06.9 CAD (coronary atherosclerotic disease) I25.10 Depression F32.A Mixed urge and stress incontinence N39.46 Constipation K59.00 DVT prophylaxis Z29.9 Exposure to COVID-19 virus Z20.822
== END 2023-11-21 17:36 | DRG 65 ==
LOC: ED 11:32 → SUATTDRO 14:23 → EDINP 14:23 → 2E 18:03

== ENCOUNTER 2023-12-02 14:46 | Inpatient (IN) ==
--- NOTE | 2023-12-02 15:05 | CT Scan Report ---
CT head/brain wo con CLINICAL HISTORY: 78 years-old Female with Neuro deficit, acute, stroke suspected. Acute strokelike symptoms TECHNIQUE: Multiple axial CT images of the head were obtained without contrast. A dose lowering tech nique was utilized adhering to the principles of ALARA. CT DOSE: 625.8 mGy.cm COMPARISON: November 17, 2023 FINDINGS: No acute intracranial hemorrhage, midline shift, intracranial mass, hydrocephalus, territorial ischem ia or abnormal extra-axial collection. Involutional changes with chronic microvascular ischemic disea se. Patchy areas of decreased attenuation within the basal ganglia, thalami and debora are again noted. Unchanged chronic left cerebellar lacunar infarct on image 13 series 2. The study is motion degraded . The calvarium is intact. The paranasal sinuses, mastoid air cells, and middle ear cavities are clear . IMPRESSION: 1. Motion degraded exam without acute intracranial abnormality identified. 2. Unchanged indeterminate patchy areas of decreased attenuation within the basal ganglia, thalami an d debora. ACT 112: Negative or not required by law. The above report was generated using voice recognition software. It may contain grammatical, syntax o r spelling errors. Electronically signed by: Oral Andrew M.D. 12/02/2023 3:03 PM
[2023-12-02] MEDS ORDERED: OPTIRAY 320 125ml IV ONE (15:10)
[2023-12-02 15:16] LABS: Hemoglobin 12.8 g/dl (12.0-16.0); Mean Corpuscular Hemoglobin 31.4 pg (25.0-34.0); Mean Corpuscular Hgb Conc 32.8 g/dL (32.0-36.0); Mean Corpuscular Volume 95.8 fL (80.0-100.0); Mean Platelet Volume 9.5 fL (9.4-12.4); Platelet Count 245 K/uL (130-400); RDW Coefficient of Variation 13.5 % (11.5-14.5); RDW Standard Deviation 47.8 fL (36.4-46.3); Red Blood Count 4.07 M/uL (4.20-5.40); White Blood Count 16.99 K/ul (4.8-10.8)
--- NOTE | 2023-12-02 15:23 | CT Scan Report ---
CT ANGIOGRAM OF THE BRAIN; CT ANGIOGRAM OF THE NECK CLINICAL HISTORY: Strokelike symptoms COMPARISON STUDY: Unenhanced CT of the brain performed the same day 12/02/2023. CT angiogram of the h ead and neck dated 11/17/2023. TECHNIQUE: Following the IV administration of 115 of Optiray 320, CT angiogram of the head and neck w as performed from the aortic arch to the vertex. Images are reviewed in the axial, sagittal, and arabella nal planes. 3-D MIPS images are created and assessed. IV contrast was administered without complicati on. All measurements were calculated based on NASCET criteria. A dose lowering technique was utilize d adhering to the principles of ALARA. CT DOSE: 475.97 mGy.cm FINDINGS: Brain parenchyma: There is age-related involutional change noting advanced confluent subcortical and periventricular microangiopathic disease. There is no evidence of hemorrhage, mass effect, or acute t erritorial ischemia noting angiographic phase technique. There is no evidence of enhancing mass lesio n on the angiogram phase images. The ventricles, sulci, and cisterns are prominent secondary to invol utional change. Harvey-white matter differentiation is preserved. No extra-axial fluid collection is se en. Thoracic aorta: There is atherosclerotic calcification of the thoracic aorta. Visualized portions of the thoracic aorta are normal in caliber. The aortic arch demonstrates standard 3-vessel anatomy. Right carotid arterial system: The right common carotid artery is widely patent, as are the right int ernal and external carotid arteries. Calcified plaque is noted in the carotid bulb. Left carotid arterial system: The left common carotid artery is widely patent, as are the left purchasing internship al and external carotid arteries. Calcified plaque is noted in the carotid bulb. Vertebral arteries: The vertebral arteries are patent bilaterally and codominant. Subclavian arteries: Widely patent bilaterally. Intracranial vasculature: There is atherosclerotic calcification of the cavernous carotid and vertebr al arteries. The internal carotid arteries are patent at the skull base, as are the anterior and midd le cerebral arteries bilaterally. The vertebrobasilar system and posterior cerebral arteries are mcgraw nt. The vertebral arteries are codominant. [id number] multifocal luminal narrowing throughout t he right middle cerebral artery is unchanged. No aneurysm or focal vessel cut off seen throughout the intracranial circulation. Jugular veins: Patent bilaterally. Dural sinuses: Patent. Lung apices: Pulmonary embolus is seen within branches of the right upper lobe pulmonary artery. Part ially visualized upper lobe lung parenchyma appears clear. Soft tissues: The visualized pharyngeal soft tissues are normal in appearance noting angiographic pha se technique. The oropharyngeal airway appears widely patent. The thyroid gland is atrophic. The sali vary glands are normal in appearance. No cervical lymphadenopathy is seen. Skeletal structures: The skeletal structures are osteopenic. The calvarium appears intact. The cervic al spine is maintained noting multilevel spondylosis. Orbits: The bony orbits are intact. Orbital contents are normal as visualized. Sinuses and mastoids: There is moderate mucosal thickening in the right sphenoid sinus. The remaining paranasal sinuses are clear. The mastoid air cells are well pneumatized. IMPRESSION: 1. Pulmonary emboli are seen within branches of the right upper lobe pulmonary artery. 2. There is no evidence of hemorrhage, mass effect, or acute territorial ischemia noting angiographic phase technique. 3. Mild to moderate multifocal luminal narrowing throughout the right middle cerebral artery is uncha nged. 4. Otherwise unremarkable CT angiogram of the brain. 5. Unremarkable CT angiogram of the neck. ACT 112: Negative or not required by law. Electronically signed by: Deng Quevedo M.D. 12/02/2023 3:21 PM
[2023-12-02 15:28] LABS: Partial Thromboplastin Ratio 1.1; Partial Thromboplastin Time 30 Seconds (21-31); Prothrombin Time 11.4 Seconds (9.0-12.0)
[2023-12-02 15:30] LABS: iSTAT Creatinine 1.6 mg/dl (0.6-1.3); iSTAT Hemoglobin 12.6 g/dl (12.0-16.0); iSTAT Ionized Calcium 1.16 mmol/l (1.12-1.32); iSTAT Potassium 4.7 mmol/L (3.3-5.0)
[2023-12-02 15:39] LABS: Albumin Globulin Ratio 1.5 (0.9-2); Albumin Level 3.4 gm/dl (3.4-5.0); BUN Creatinine Ratio 17.2 (10-20); Bilirubin,Total 0.6 mg/dl (0.2-1.0); Calcium 8.3 mg/dl (8.6-10.3); Creatinine Clr Calc Pharmacy 32.8 ml/min; Est GFR (African American) 36.2 ml/min; Est GFR (Non-African American) 31.3 ml/min; Globulin 2.3 gm/dl (2.5-4.0); Magnesium 1.8 mg/dl (1.7-2.4); Potassium 4.7 mmol/L (3.5-5.1); Total Protein 5.7 gm/dl (6.0-8.3)
--- NOTE | 2023-12-02 15:48 | Emergency Department Note ---
Impression & Plan Pulmonary embolism ED Provider Note NAME: IVETH WATT AGE: 78 SEX: F : 1945 ARRIVES VIA: Ambulance INFORMANT: Patient, ED PROVIDER(S): Bethany Ayoub MD CHIEF COMPLAINT: Stroke alert HPI: This is a 78-year-old female, history of prediabetic, CAD, previous stroke presenting for stroke alert. Patient was reportedly having symptoms of slurred speech, and possible facial droop at nursing facility. Medics report right- sided facial droop, the facility reported left facial droop. Patient's last known well at 11 AM She had episode of slurred speech and this facial droop and was transported here via EMS. Upon arrival patient has left upper and lower extremity weakness with right-sided facial droop. Upon record review appears that patient was just seen 2 weeks ago for the same diagnosed with stroke. He is started on aspirin Plavix. Today she has no acute complaints but is breathing somewhat labored. ROS: See above HPI for pertinent positives & negatives. A total of 10 systems reviewed and were otherwise negative. PAST MEDICAL HISTORY: See Below PAST SURGICAL HISTORY: See Below FAMILY HISTORY: See Below SOCIAL HISTORY: See Below HOME MEDICATIONS: See Below ALLERGIES: See Below VITALS: See Below PHYSICAL EXAMINATION: General: resting comfortably in no acute distress Head: Normocephalic and atraumatic Eyes: Normal inspection, extraocular muscles intact Ear, nose, throat: Normal external exam Neck: Normal range of motion Respiratory: lungs clear to auscultation bilaterally, labored breathing Cardiovascular: Regular rate/rhythm, no murmur GI: soft, nontender, no guarding or rebound Extremities: nontender, moves all extremities Neuro: The patient awake and alert, appropriately conversive, 3/5 upper and lower extremity weakness, right-sided facial droop Skin: Warm, dry, and intact MEDICAL DECISION MAKING: This is a 78-year-old female history of prediabetes, CAD presenting for stroke alert. Patient appears to have stable findings from her previous stroke 2 weeks ago. No new findings are noted on my neurologic exam. Focal neurologic deficits remained stable. Patient is somewhat labored breathing at this time, he is clear, consider CHF, PE, ACS. -Patient CT head reveals no acute process, does show chronic findings -CTA does reveal pulmonary embolism. No LVO or significant change -Patient denies any active chest pain or shortness of breath but is having some labored breathing -Chest x-ray as independently read by me shows rotated study, cardiomegaly, small pleural effusion, no pneumothorax or focal opacity concerning for pneumonia -Blood does reveal leukocytosis to 16.99, otherwise stable electrolytes with creatinine elevation 1.57, new MARCY -Troponin only slightly elevated at 21 otherwise BNP elevated at 102, slightly -Patient required mission for pulmonary embolism at this time -Advised patient history as above UTI. Being treated for this currently in the outpatient setting. Differential diagnosis: Hemorrhage, stroke, encephalopathy, UTI ER treatment provided: See below Diagnostics interpreted by me: ECG: ECG independently interpreted by me with normal sinus rhythm, rate of 87, left axis deviation, first-degree AV block, right bundle branch block, normal QTc, ST elevation versus J-point elevation in the inferior leads, significant change from previous Cardiac Monitoring: An order was placed for continuous cardiac monitoring. The monitor shows a rate of with rhythm. Laboratory studies: As stated above and show below. Imaging studies: See below. Past Med/Surg History Medical History Constipation Mixed urge and stress incontinence Depression CAD (coronary atherosclerotic disease) Rheumatoid arthritis Cognitive communication deficit Chronic pain syndrome Hypothyroidism Asthma GERD (gastroesophageal reflux disease) Hypertension Unspecified dementia, unspecified severity, without behavioral disturbance, psychotic disturbance, mood disturbance, and anxiety Family History Mother , in her mid 80s of diabetic complications Diabetes Father , in his mid 80s No problems noted. 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 Feels Safe at Home: Yes Assistive Devices: Wheelchair Allergies Allergies Allergy/AdvReac Type Severity Reaction Status Date / Time ibuprofen Allergy Unknown ON [facility]ENTRE Verified 12/02/23 15:19 CARE MED LIST propylthiouracil Allergy Unknown ON CENTRE Verified 12/02/23 15:19 CARE MED LIST Home Meds Home Medications Medication Instructions Recorded Confirmed acetaminophen 325 mg tablet 650 mg PO Q6H PRN pain 1-4/FEVER 11/17/23 12/02/23 (Tylenol) >100 amlodipine 2.5 mg tablet 2.5 mg PO QAM 11/17/23 12/02/23 aspirin 81 mg tablet,delayed 81 mg PO QAM 11/17/23 12/02/23 release bisacodyl 10 mg rectal suppository 10 mg WY DAILY PRN Constipation 11/17/23 12/02/23 (Dulcolax (bisacodyl)) clopidogrel 75 mg tablet 75 mg PO QAM 11/17/23 12/02/23 conjugated estrogens 0.625 mg/gram 1 applic vaginal 2XWK 11/17/23 12/02/23 vaginal cream (Premarin) cyanocobalamin (vitamin B-12) 2,500 mcg sublingual QAM 11/17/23 12/02/23 2,500 mcg sublingual tablet diclofenac sodium 1 % topical gel 2 - 4 g topical QID 11/17/23 12/02/23 docusate sodium 100 mg capsule 200 mg PO HS 11/17/23 12/02/23 duloxetine 60 mg capsule,delayed 60 mg PO HS 11/17/23 12/02/23 release folic acid 1 mg tablet 1 mg PO QAM 11/17/23 12/02/23 furosemide 20 mg tablet 20 mg PO QAM 11/17/23 12/02/23 isosorbide mononitrate 60 mg 60 mg PO QAM 11/17/23 12/02/23 tablet,extended release 24 hr melatonin 3 mg tablet 3 mg PO HS 11/17/23 12/02/23 methenamine hippurate 1 gram tablet 1 g PO BID 11/17/23 12/02/23 mirabegron 50 mg tablet,extended 50 mg PO QAM 11/17/23 12/02/23 release 24 hr (Myrbetriq) mirtazapine 30 mg tablet 30 mg PO QAM 11/17/23 12/02/23 potassium chloride 10 mEq 10 meq PO BIDM 11/17/23 12/02/23 tablet,extended release propylene glycol 0.6 % eye drops 2 drp ophthalmic (eye) DAILY PRN 11/17/23 12/02/23 (Systane Balance) Dry Eye(S) sodium phosphates 19 gram-7 118 ml WY DAILY PRN Constipation 11/17/23 12/02/23 gram/118 mL enema (Fleet Enema) acetaminophen 650 mg rectal 650 mg WY Q6H PRN Fever 12/02/23 12/02/23 suppository calcium carbonate 500 mg calcium 1,000 mg PO Q6H PRN Indigestion 12/02/23 12/02/23 (1,250 mg) chewable tablet ceftriaxone 1 gram solution for 1 g IM .DAILY@1230 12/02/23 12/02/23 injection levothyroxine 150 mcg tablet 150 mcg PO DAILYBB 12/02/23 12/02/23 magnesium hydroxide 400 mg/5 mL 30 ml PO DAILY PRN NO BM FOR 3 12/02/23 12/02/23 oral suspension (Milk of Magnesia) DAYS. omega-3 fatty acids 1,000 mg 1,000 mg PO QAM 12/02/23 12/02/23 capsule promethazine 25 mg tablet 25 mg PO Q6H PRN NAUSEA/VOMITING 12/02/23 12/02/23 promethazine 25 mg/mL injection 25 mg IM Q6H PRN NAUSEA/VOMITING 12/02/23 12/02/23 solution Previous Rx's Medication Instructions Recorded hydrocodone 10 mg-acetaminophen 1 tab PO Q6H PRN pain 5-10/10 pain 11/21/23 325 mg tablet scale #10 tabs Results & Data (ED) Vital Signs Vital Signs - 24 hr 12/02/23 15:05 12/02/23 15:05 12/02/23 15:05 Temperature 36.6 C Temperature Source Temporal Artery Scan Pulse Rate 90 Pulse Rate [Apical] Pulse Rhythm [Apical] Pulse Strength [Apical] Respiratory Rate 18 16 Respiratory Effort / Characteristics Respiratory Depth Respiratory Pattern Blood Pressure 97/68 L Blood Pressure [Left Arm] 97/68 L Blood Pressure Mean 77 Blood Pressure Mean [Left Arm] 77 Pulse Oximetry 96 97 Oxygen Delivery Method Room Air Room Air Sepsis Recent Fever Within 48 Hours No Sepsis New/Unexplained Change in Mental Status N/A Sepsis Action Taken by Nursing No Action Required 12/02/23 15:05 12/02/23 15:54 12/02/23 16:07 Temperature Temperature Source Pulse Rate Pulse Rate [Apical] 81 82 Pulse Rhythm [Apical] Regular Pulse Strength [Apical] Normal Respiratory Rate 18 18 Respiratory Effort / Characteristics Non-Labored Spontaneous Respiratory Depth Normal Respiratory Pattern Regular Blood Pressure Blood Pressure [Left Arm] 139/76 99/72 L Blood Pressure Mean Blood Pressure Mean [Left Arm] 97 81 Pulse Oximetry 93 100 95 Oxygen Delivery Method Room Air Room Air Sepsis Recent Fever Within 48 Hours Sepsis New/Unexplained Change in Mental Status Sepsis Action Taken by Nursing Laboratory Data 12/02/23 15:07 12/02/23 15:07 Lab Results 12/02/23 12/02/23 12/02/23 Range/Units 15:07 15:08 15:13 WBC 16.99 H (4.8-10.8) K/ul RBC 4.07 L (4.20-5.40) M/uL Hgb 12.8 (12.0-16.0) g/dl POC Hgb 12.6 (12.0-16.0) g/dl Hct 39.0 (37.0-47.0) % POC Hct 37 (37-47) % MCV 95.8 (80.0-100.0) fL MCH 31.4 (25.0-34.0) pg MCHC 32.8 (32.0-36.0) g/dL RDW Std Deviation 47.8 H (36.4-46.3) fL RDW Coeff of Julius 13.5 (11.5-14.5) % Plt Count 245 (130-400) K/uL MPV 9.5 (9.4-12.4) fL PT 11.4 (9.0-12.0) Seconds INR 1.0 (0.9-1.1) APTT 30 (21-31) Seconds PTT Ratio 1.1 POC Sodium 134 L (135-144) mmol/L Sodium 133 L (136-145) mmol/L POC Potassium 4.7 (3.3-5.0) mmol/L Potassium 4.7 (3.5-5.1) mmol/L POC Chloride 100 L (101-112) mmol/L Chloride 101 (98-107) mmol/L Carbon Dioxide 25 (21-32) mmol/L POC Total CO2 23 L (24-31) mmol/L Anion Gap 7 (3-11) POC Anion Gap 16.0 (16-25) mmol/L POC BUN 24 H (7-18) mg/dl BUN 27 H (6-23) mg/dl Creatinine 1.57 H (0.6-1.2) mg/dl POC Creatinine 1.6 H (0.6-1.3) mg/dl Est Cr Clr Drug Dosing 32.8 ml/min Est GFR ( Amer) 36.2 ml/min Est GFR (Non-Af Amer) 31.3 ml/min BUN/Creatinine Ratio 17.2 (10-20) Glucose 149 H (70-99(Fasting)) mg/dl POC Glucose (other) 145 H (70-99) mg/dl Lactate 3.6 H* (0.4-2.0) mmol/L Calcium 8.3 L (8.6-10.3) mg/dl POC Ioniz Calcium Latrice 1.16 (1.12-1.32) mmol/l Magnesium 1.8 (1.7-2.4) mg/dl Total Bilirubin 0.6 (0.2-1.0) mg/dl AST 13 (13-39) U/L ALT 6 L (7-52) U/L Alkaline Phosphatase 63 (34-104) U/L Troponin I High Sens 21.1 H (0-14) pg/ml B-Natriuretic Peptide 102 H (0-100) pg/ml Total Protein 5.7 L (6.0-8.3) gm/dl Albumin 3.4 (3.4-5.0) gm/dl Globulin 2.3 L (2.5-4.0) gm/dl Albumin/Globulin Ratio 1.5 (0.9-2) Administered Medications Discontinued Medications Lactated Ringer's (Lr) 500 mls @ 999 mls/hr IV .Q31M ONE Stop: 12/02/23 16:57 Last Admin: 12/02/23 16:51 Dose: 999 mls/hr Documented By: BENIGNO Ioversol (Optiray 320 125ml) 115 ml IV ONCE ONE Stop: 12/02/23 15:11 Last Admin: 12/02/23 15:10 Dose: 115 ml Documented By: WYATT Imaging Data Radiologist's Impression: Chest X-Ray 12/02/23 14:50 XR chest 1V portable HISTORY: Stroke symptoms. COMPARISON: Chest 11/17/2023. FINDINGS: Slightly rotated study. No pneumothorax. There are low lung volumes. The heart remains enlarged. Spinal stimulator lead are noted. Lumbar spinal fusion hardware is partially visualized. There is mild central pulmonary vascular congestion without overt edema. Trace bilateral pleural fusions persists. No new focal lung consolidations identified. No acute fractures. Degenerative changes within the shoulders. IMPRESSION: Cardiomegaly, mild pulmonary vascular congestion, and trace bilateral pleural effusions persists. ACT 112: Negative or not required by law. Electronically signed by: Tom Menon M.D. 12/02/2023 3:[address] 12/02/23 14:50 CT head/brain wo con CLINICAL HISTORY: 78 years-old Female with Neuro deficit, acute, stroke suspected. Acute strokelike symptoms TECHNIQUE: Multiple axial CT images of the head were obtained without contrast. A dose lowering technique was utilized adhering to the principles of ALARA. CT DOSE: 625.8 mGy.cm COMPARISON: November 17, 2023 FINDINGS: No acute intracranial hemorrhage, midline shift, intracranial mass, hydrocephalus, territorial ischemia or abnormal extra-axial collection. Involutional changes with chronic microvascular ischemic disease. Patchy areas of decreased attenuation within the basal ganglia, thalami and debora are again noted. Unchanged chronic left cerebellar lacunar infarct on image 13 series 2. The study is motion degraded. The calvarium is intact. The paranasal sinuses, mastoid air cells, and middle ear cavities are clear. IMPRESSION: 1. Motion degraded exam without acute intracranial abnormality identified. 2. Unchanged indeterminate patchy areas of decreased attenuation within the basal ganglia, thalami and debora. ACT 112: Negative or not required by law. The above report was generated using voice recognition software. It may contain grammatical, syntax or spelling errors. Electronically signed by: Oral Andrew M.D. 12/02/2023 3:03 PM Head CTA 12/02/23 14:52 CT ANGIOGRAM OF THE BRAIN; CT ANGIOGRAM OF THE NECK CLINICAL HISTORY: Strokelike symptoms COMPARISON STUDY: Unenhanced CT of the brain performed the same day 12/02/2023. CT angiogram of the head and neck dated 11/17/2023. TECHNIQUE: Following the IV administration of 115 of Optiray 320, CT angiogram of the head and neck was performed from the aortic arch to the vertex. Images are reviewed in the axial, sagittal, and coronal planes. 3-D MIPS images are created and assessed. IV contrast was administered without complication. All measurements were calculated based on NASCET criteria. A dose lowering technique was utilized adhering to the principles of ALARA. CT DOSE: 475.97 mGy.cm FINDINGS: Brain parenchyma: There is age-related involutional change noting advanced confluent subcortical and periventricular microangiopathic disease. There is no evidence of hemorrhage, mass effect, or acute territorial ischemia noting angiographic phase technique. There is no evidence of enhancing mass lesion on the angiogram phase images. The ventricles, sulci, and cisterns are prominent secondary to involutional change. Harvey-white matter differentiation is preserved. No extra-axial fluid collection is seen. Thoracic aorta: There is atherosclerotic calcification of the thoracic aorta. Visualized portions of the thoracic aorta are normal in caliber. The aortic arch demonstrates standard 3-vessel anatomy. Right carotid arterial system: The right common carotid artery is widely patent, as are the right internal and external carotid arteries. Calcified plaque is noted in the carotid bulb. Left carotid arterial system: The left common carotid artery is widely patent, as are the left internal and external carotid arteries. Calcified plaque is noted in the carotid bulb. Vertebral arteries: The vertebral arteries are patent bilaterally and codominant. Subclavian arteries: Widely patent bilaterally. Intracranial vasculature: There is atherosclerotic calcification of the cavernous carotid and vertebral arteries. The internal carotid arteries are patent at the skull base, as are the anterior and middle cerebral arteries bilaterally. The vertebrobasilar system and posterior cerebral arteries are patent. The vertebral arteries are codominant. Oaoa-ef-fuhrqnzm multifocal luminal narrowing throughout the right middle cerebral artery is unchanged. No aneurysm or focal vessel cut off seen throughout the intracranial circulation. Jugular veins: Patent bilaterally. Dural sinuses: Patent. Lung apices: Pulmonary embolus is seen within branches of the right upper lobe pulmonary artery. Partially visualized upper lobe lung parenchyma appears clear. Soft tissues: The visualized pharyngeal soft tissues are normal in appearance noting angiographic phase technique. The oropharyngeal airway appears widely patent. The thyroid gland is atrophic. The salivary glands are normal in appearance. No cervical lymphadenopathy is seen. Skeletal structures: The skeletal structures are osteopenic. The calvarium appears intact. The cervical spine is maintained noting multilevel spondylosis. Orbits: The bony orbits are intact. Orbital contents are normal as visualized. Sinuses and mastoids: There is moderate mucosal thickening in the right sphenoid sinus. The remaining paranasal sinuses are clear. The mastoid air cells are well pneumatized. IMPRESSION: 1. Pulmonary emboli are seen within branches of the right upper lobe pulmonary artery. 2. There is no evidence of hemorrhage, mass effect, or acute territorial ischemia noting angiographic phase technique. 3. Mild to moderate multifocal luminal narrowing throughout the right middle cerebral artery is unchanged. 4. Otherwise unremarkable CT angiogram of the brain. 5. Unremarkable CT angiogram of the neck. ACT 112: Negative or not required by law. Electronically signed by: Deng Quevedo M.D. 12/02/2023 3:21 PM Neck CTA 12/02/23 14:52 CT ANGIOGRAM OF THE BRAIN; CT ANGIOGRAM OF THE NECK CLINICAL HISTORY: Strokelike symptoms COMPARISON STUDY: Unenhanced CT of the brain performed the same day 12/02/2023. CT angiogram of the head and neck dated 11/17/2023. TECHNIQUE: Following the IV administration of 115 of Optiray 320, CT angiogram of the head and neck was performed from the aortic arch to the vertex. Images are reviewed in the axial, sagittal, and coronal planes. 3-D MIPS images are created and assessed. IV contrast was administered without complication. All measurements were calculated based on NASCET criteria. A dose lowering technique was utilized adhering to the principles of ALARA. CT DOSE: 475.97 mGy.cm FINDINGS: Brain parenchyma: There is age-related involutional change noting advanced confluent subcortical and periventricular microangiopathic disease. There is no evidence of hemorrhage, mass effect, or acute territorial ischemia noting angiographic phase technique. There is no evidence of enhancing mass lesion on the angiogram phase images. The ventricles, sulci, and cisterns are prominent secondary to involutional change. Harvey-white matter differentiation is preserved. No extra-axial fluid collection is seen. Thoracic aorta: There is atherosclerotic calcification of the thoracic aorta. Visualized portions of the thoracic aorta are normal in caliber. The aortic arch demonstrates standard 3-vessel anatomy. Right carotid arterial system: The right common carotid artery is widely patent, as are the right internal and external carotid arteries. Calcified plaque is noted in the carotid bulb. Left carotid arterial system: The left common carotid artery is widely patent, as are the left internal and external carotid arteries. Calcified plaque is noted in the carotid bulb. Vertebral arteries: The vertebral arteries are patent bilaterally and codominant. Subclavian arteries: Widely patent bilaterally. Intracranial vasculature: There is atherosclerotic calcification of the cavernous carotid and vertebral arteries. The internal carotid arteries are patent at the skull base, as are the anterior and middle cerebral arteries bilaterally. The vertebrobasilar system and posterior cerebral arteries are patent. The vertebral arteries are codominant. Zqjr-xm-fuzvnpsr multifocal luminal narrowing throughout the right middle cerebral artery is unchanged. No aneurysm or focal vessel cut off seen throughout the intracranial circulation. Jugular veins: Patent bilaterally. Dural sinuses: Patent. Lung apices: Pulmonary embolus is seen within branches of the right upper lobe pulmonary artery. Partially visualized upper lobe lung parenchyma appears clear. Soft tissues: The visualized pharyngeal soft tissues are normal in appearance noting angiographic phase technique. The oropharyngeal airway appears widely patent. The thyroid gland is atrophic. The salivary glands are normal in appearance. No cervical lymphadenopathy is seen. Skeletal structures: The skeletal structures are osteopenic. The calvarium appears intact. The cervical spine is maintained noting multilevel spondylosis. Orbits: The bony orbits are intact. Orbital contents are normal as visualized. Sinuses and mastoids: There is moderate mucosal thickening in the right sphenoid sinus. The remaining paranasal sinuses are clear. The mastoid air cells are well pneumatized. IMPRESSION: 1. Pulmonary emboli are seen within branches of the right upper lobe pulmonary artery. 2. There is no evidence of hemorrhage, mass effect, or acute territorial ischemia noting angiographic phase technique. 3. Mild to moderate multifocal luminal narrowing throughout the right middle cerebral artery is unchanged. 4. Otherwise unremarkable CT angiogram of the brain. 5. Unremarkable CT angiogram of the neck. ACT 112: Negative or not required by law. Electronically signed by: Deng Quevedo M.D. 12/02/2023 3:21 PM Discharge Plan Visit Data Chief Complaint: Stroke Alert ED Provider: Bethany Ayoub Discharge Problem: Pulmonary embolism Forms Stand Alone Forms: My [employer] Prescriptions Prescriptions: No Action acetaminophen 650 mg Suppository 650 mg WY Q6H PRN (Reason: Fever) omega-3 fatty acids 1,000 mg Capsule 1,000 mg PO QAM ceftriaxone 1 gram Recon Soln 1 g IM .DAILY@1230 Rx Instructions: STARTED 12/02/23 FOR 7 DAYS. MIX WITH 2.1 ML OF LIDOCAINE 1% TO ADMINISTER magnesium hydroxide [Milk of Magnesia] 400 mg/5 mL Suspension 30 ml PO DAILY PRN (Reason: NO BM FOR 3 DAYS.) promethazine 25 mg/mL Solution 25 mg IM Q6H PRN (Reason: NAUSEA/VOMITING) Rx Instructions: STARTED 12/02/23 FOR 7 DAYS. promethazine 25 mg Tablet 25 mg PO Q6H PRN (Reason: NAUSEA/VOMITING) Rx Instructions: STARTED 12/02/23 FOR 7 DAYS levothyroxine 150 mcg Tablet 150 mcg PO DAILYBB calcium carbonate [Tums 500] 500 mg calcium (1,250 mg) Tablet,Chewable 1,000 mg PO Q6H PRN (Reason: Indigestion) acetaminophen [Tylenol] 325 mg Tablet 650 mg PO Q6H MDD 3 grams/24h PRN (Reason: pain 1-4/FEVER >100) cyanocobalamin (vitamin B-12) 2,500 mcg Tablet, Sublingual 2,500 mcg SUBLINGUAL QAM amlodipine 2.5 mg tablet 2.5 mg PO QAM potassium chloride 10 mEq tablet extended release 10 meq PO BIDM melatonin 3 mg Tablet 3 mg PO HS clopidogrel 75 mg tablet 75 mg PO QAM aspirin 81 mg Tablet,Delayed Release (Dr/Ec) 81 mg PO QAM isosorbide mononitrate 60 mg tablet extended release 24 hr 60 mg PO QAM methenamine hippurate 1 gram tablet 1 g PO BID bisacodyl [Dulcolax (bisacodyl)] 10 mg Suppository 10 mg WY DAILY PRN (Reason: Constipation) Rx Instructions: day 3 of no BM mirtazapine 30 mg tablet 30 mg PO QAM Premarin 0.625 mg/gram cream 1 applic vaginal 2XWK Rx Instructions: TUESDAY & THURSDAYS @ HS Fleet Enema 19-7 gram/118 mL Enema 118 ml WY DAILY PRN (Reason: Constipation) Rx Instructions: day 4 of no BM docusate sodium 100 mg Capsule 200 mg PO HS folic acid 1 mg tablet 1 mg PO QAM furosemide 20 mg tablet 20 mg PO QAM duloxetine 60 mg capsule,delayed release(DR/EC) 60 mg PO HS diclofenac sodium 1 % gel 2 - 4 g TOPICAL QID Rx Instructions: 2 grams to hand/wrists and 4 grams to knees Systane Balance 0.6 % Drops 2 drp OPHTHALMIC (EYE) DAILY PRN (Reason: Dry Eye(S)) Myrbetriq 50 mg tablet extended release 24 hr 50 mg PO QAM hydrocodone-acetaminophen 10-325 mg tablet 1 tab PO Q6H MDD 3gm Tylenol/24h PRN (Reason: pain 5-10/10 pain scale) Qty: 10 0RF Referrals Referrals: Will Bhatia III, MD [Primary Care Provider] -
--- NOTE | 2023-12-02 15:56 | XRay Report ---
XR chest 1V portable HISTORY: Stroke symptoms. COMPARISON: Chest 11/17/2023. FINDINGS: Slightly rotated study. No pneumothorax. There are low lung volumes. The heart remains enla rged. Spinal stimulator lead are noted. Lumbar spinal fusion hardware is partially visualized. There is mild central pulmonary vascular congestion without overt edema. Trace bilateral pleural fusions pe rsists. No new focal lung consolidations identified. No acute fractures. Degenerative changes within the shoulders. IMPRESSION: Cardiomegaly, mild pulmonary vascular congestion, and trace bilateral pleural effusions persists. ACT 112: Negative or not required by law. Electronically signed by: Tom Menon M.D. 12/02/2023 3:55 PM
[2023-12-02 16:08] LABS: Troponin I High Sensitivity 21.1 pg/ml (0-14)
--- NOTE | 2023-12-02 16:10 | History & Physical Report ---
Date of Service December 02, 2023 Assessment & Plan (1) Pulmonary emboli: Plan: Right upper lobe pulmonary emboli is seen on inferior field of neck angiography Patient has not been on a blood thinner previously, is on DAPT therapy with a history of PCI and stroke Heparin ordered, will continue Plavix monotherapy for stent/CVA protection .At prior admission patient was on SCDs initially while stroke evaluation was completed and then converted to Lovenox x 2 days. Days patient does have right calf pain, calf circumferences within 1.5 cm difference on admit Patient has clinical severe volume contraction, MARCY, and CKD3 borderline IV. She received IV contrast for neck angiography for stroke protocol eval, CTA limited by risk of further kidney injury Patient initially mildly hypotensive, improved with fluid bolus and then again and with borderline blood pressure on recheck. She has recently been diagnosed with and was under treatment for UTI with almost no oral intake and is clinically volume depleted. Will treat volume depletion and underlying infection and give fluid boluses as below. Patient slightly hypotensive on admission, but is fluid responsive and appears volume contracted with underlying UTI. Cannot rule out saddle PE, but low mcgee spicion for this with alternative explanations, fluid responsiveness, no hypoxia, no tachycardia. discussed risk/benefits extensively with patient's family., As noted in goals of care discussion below. On shared decision making we will defer CTA until renal function is improved, continue heparin GTT, treat for infection as noted, and in a emergency/code situation with severe hypotension can use thrombolysis/dose reduced thrombolysis if massive PE is suspected .PESI score limited by underlying cognitive status. Patient is oriented x 3 and gives conversationally appropriate answers, but has some word finding difficulty and difficulty eliciting reassessments of medical condition. Per daughters this is about near what her baseline would be. If this is reflective of her baseline, she is class II low risk; if altered --> would be class V. (2) Left hemiparesis: Plan: Patient with some residual left greater than right-sided weakness, at bedside assessment her hose inspector and patcher strength, elbow flexion, ankle dorsiflexion/plantarflexion, and hip flexion are symmetrical bilaterally but patient does fatigue extremely easily. Sensation intact in hands and feet without asymmetry Left facial droop is present on admitting exam; this does correct with cheek puff and smile at time of admission. No other focal neurologic deficits on exam Do not suspect acute stroke, CT of the head does not show any acute findings. Patient did have some left-sided symptoms which appear back to baseline time of assessment, and this may have been worsened deficits in the setting of volume depletion and UTI .MRI is limited as patient has a spinal stimulator without the remote or known history of which institution performed this Oral meds held until swallow eval can be performed 12/03, will automatically fail bedside swallow due to resting facial droop although this is chronic and does not appear to have changed recently per discussion with daughters. If unable to tolerate p.o. convert Synthroid to IV at 70% and switch antiplatelet to rectal aspirin (3) Complicated UTI (urinary tract infection): Plan: Patient with increased fatigue as outpatient, UA infected appearing and UCx with E. coli recently resulted Patient was on 1 day of Cipro, 1 day of Bactrim, and then switched to 1 dose of Rocephin which was given 119 in the morning prior to transport to the ER for UTI Per nursing staff has had minimal p.o. intake in the last 2 days along with this Lactate is elevated, borderline hypotensive and initially fluid responsive. Patient has a leukocytosis, no fever but reports she has felt a little febrile in the last day. Due to borderline hypotension, leukocytosis, identified source of infection with elevated lactate patient does meet criteria for sepsis at time of admission ideal body weight sepsis bolus ordered to complete 1636 cc. Suspect mild BNP elevation and congestion is due to strain and PE, rather than heart failure. Last echo 11/2023 with EF 60-65%. (4) CAD (coronary atherosclerotic disease): Plan: History of PCI >1 yr ago per pt, pending record. Aspirin/Plavix switched to anticoagulation+plaavix on admit -No chest pain on admission Troponin minimally elevated pending equivocal, suspect demand vs mild strain BNP minimally elevated at 102? Heart strain. Chest x-ray with some pulmonary vascular congestion although no obvious edema and clinically patient is volume contracted with dry mucous membranes and no leg edema sepsis bolus by IBW 1636cc, and rebolus as clinically indicated (5) Hypertension: Plan: Antihypertensives held on admission (6) Counseling regarding goals of care: Plan: Paula is able to answer questions and give some understanding of her medical condition but has difficulty verbalizing back risks/benefits of various medical treatments. As such her daughters, daughter Joyce who is her surrogate decision-maker, were included on conversations on decision making by phone. Paula was previously DNR/DNI but her last admission and more recently has expressed a desire to be full code which they would like to honor but will have ongoing discussions regarding whether resuscitation would be consistent with her overall care goals. They are aware that she is being treated for a UTI, and b eing resuscitated with fluids and has already been given antibiotics which are continued. I discussed her presentation that may have been worsened deficits due to acute illness worsening prior CVA deficits and that her CT does not show any new strokelike findings, although MRI would be the gold standard this is limited by her spinal stimulator without additional information to switch this device to an MRI compatible mode available. Discussed the right upper quadrant PEs which were noted on her neck angiography. Patient was hypotensive however do not suspect this was from a massive PE, more likely from severe volume depletion although she does have a slightly elevated troponin and minimally elevated BNP. They expressed that in the event that she were to have a code overnight and a massive PE was strongly suspected then they would want a trial of either full or dose reduced thrombolysis knowing that there is a high bleeding risk and that this is with increased risk of intracranial bleed due to her recent stroke. Patient has had a clear expression in her advance directive that she does not want dialysis, given improving hemodynamics with sepsis treatment and underlying MARCY agree with treating with fluids, trending creatinine and obtaining a CTA and ~24 hours to qualify clot burden.. Agree with admission to PCU, transfer to ICU if hypotensive or decompensating, and care as discussed. They will be in to visit Jennifer tomorrow and are available by phone at [phone] in the case any emergencies develop or updates. If they wish to make any change or update to the CODE STATUS they will reach out to primary team History of Present Illness Primary Care Provider: Will Rodriguez is a 78-year-old female with past medical history of CVA, small vessel disease, hypertension, GERD, asthma, hypothyroidism, chronic pain, dysphagia recently admitted for strokelike deficits from 11/17/2023 until 11/21/2023 for and was found to have right basal ganglia/thalamic stroke on CT likely culprit region leading to her presentation at that time with left sided symptoms/leg wea kness. Additional left-sided thalamic/pontine infarcts were noted. MRI at that time was not able to be obtained as patient has a spinal cord stimulator without operation remote, and does not know which hospital or surgeon performed the procedure. She had no A-fib or flutter noted at that time, and was ultimately discharged on dual antiplatelet therapy. While she was pending completion of her stroke evaluation she was on SCDs, and following stability she was started on pharmacologic stroke prophylaxis on 11/20 until discharge. At time of discharge she had some remaining weakness to left hip flexion. She has an additional history of CAD with prior PCI and stenting and was continued on DAPT, patient was not on beta-willie therapy and was unclear why this had been deferred. Lipitor was started and continued on discharge she had prior COVID exposure preceding that admission but was COVID-negative during her stay. At bedside evaluation she is normotensive with a pressure of 139/76, pulse of 81, and satting 100% on room air although is with the subjective feeling of intermittent dyspnea. Reports he feels weak all over but denies focal weakness or worsened weakness in any particular extremity. She is oriented to name month and place but has increased speech latency and is intermittently confused, somewhat limited historian. She denies chest pain, chest pressure, abdominal pain, nausea/vomiting. She is thirsty. She is not sure when her last bowel movement was. She denies inspiratory pain. She reports she does have some discomfort in her right calf which she thinks is new in the last few days but is not sure. Collateral is collected from her daughter Bobby by phone. They report that since being at [facility] she was doing okay after initial discharge but in the last few days had a UTI. She has been eating and drinking very little and was very dehydrated when they saw her earlier in the week. She was treated with Cipro then Bactrim then Rocephin for a UTI and had 1 dose of Rocephin this morning before coming to the ER. They note that she did have a fever and some vomiting earlier in the week, this is confirmed by [facility] nursing. Daughter reprots no history of stroke or heart disease in the family. Daughter is concerned about whether her overall decline is related to COVID vaccinations or shots. [facility]. aspirin and plaavix were given this morning. Cipro x1d on 11/30, bactrim 12/01 --> then one dose of rocephin today. UC+ E. coli. Was referred today for general illness, fatigue, nausea, and some confusion with more L leg weakness which was dragging yves jama. L arm was also weaker than her normal baseline. --> Stroke eval. No slurring/dysarthria but was clearly pronouncing name. Conversationally more limited with word finding/stuttering. Paula is able to answer questions and give some understanding of her medical condition but has difficulty verbalizing back risks/benefits of various medical treatments. As such her daughters, daughter Joyce who is her surrogate decision-maker, were included on conversations on decision making by phone. Paula was previously DNR/DNI but her last admission and more recently has expressed a desire to be full code which they would like to honor but will have ongoing discussions regarding whether resuscitation would be consistent with her overall care goals. They are aware that she is being treated for a UTI, and being resuscitated with fluids and has already been given antibiotics which are continued. I discussed her presentation that may have been worsened deficits due to acute illness worsening prior CVA deficits and that her CT does not show any new strokelike findings, although MRI would be the gold standard this is limited by her spinal stimulator without additional information to switch this device to an MRI compatible mode available. Discussed the right upper quadrant PEs which were noted on her neck angiography. Patient was hypotensive however do not suspect this was from a massive PE, more likely from severe volume depletion although she does have a slightly elevated troponin and minimally elevated BNP. They expressed that in the event that she were to have a code overnight and a massive PE was strongly suspected then they would want a trial of either full or dose reduced thrombolysis knowing that there is a high blee ding risk and that this is with increased risk of intracranial bleed due to her recent stroke. Patient has had a clear expression in her advance directive that she does not want dialysis, given improving hemodynamics with sepsis treatment and underlying MARCY agree with treating with fluids, trending creatinine and obtaining a CTA and ~24 hours to qualify clot burden.. Agree with admission to PCU, transfer to ICU if hypotensive or decompensating, and care as discussed. They will be in to visit Jennifer tomorrow and are available by phone at [phone] in the case any emergencies develop or updates Allergies Allergy/AdvReac Type Severity Reaction Status Date / Time ibuprofen Allergy Unknown ON [facility]RE Verified 12/02/23 15:19 CARE MED LIST propylthiouracil Allergy Unknown ON [facility]RE Verified 12/02/23 15:19 CARE MED LIST Home Medications Medication Instructions Recorded Confirmed Type acetaminophen 325 mg tablet 650 mg PO Q6H PRN pain 1-4/FEVER 11/17/23 12/02/23 History (Tylenol) >100 amlodipine 2.5 mg tablet 2.5 mg PO QAM 11/17/23 12/02/23 History aspirin 81 mg tablet,delayed 81 mg PO QAM 11/17/23 12/02/23 History release bisacodyl 10 mg rectal suppository 10 mg MD DAILY PRN Constipation 11/17/23 12/02/23 History (Dulcolax (bisacodyl)) clopidogrel 75 mg tablet 75 mg PO QAM 11/17/23 12/02/23 History conjugated estrogens 0.625 mg/gram 1 applic vaginal 2XWK 11/17/23 12/02/23 History vaginal cream (Premarin) cyanocobalamin (vitamin B-12) 2,500 mcg sublingual QAM 11/17/23 12/02/23 History 2,500 mcg sublingual tablet diclofenac sodium 1 % topical gel 2 - 4 g topical QID 11/17/23 12/02/23 History docusate sodium 100 mg capsule 200 mg PO HS 11/17/23 12/02/23 History duloxetine 60 mg capsule,delayed 60 mg PO HS 11/17/23 12/02/23 History release folic acid 1 mg tablet 1 mg PO QAM 11/17/23 12/02/23 History furosemide 20 mg tablet 20 mg PO QAM 11/17/23 12/02/23 History isosorbide mononitrate 60 mg 60 mg PO QAM 11/17/23 12/02/23 History tablet,extended release 24 hr melatonin 3 mg tablet 3 mg PO HS 11/17/23 12/02/23 History methenamine hippurate 1 gram tablet 1 g PO BID 11/17/23 12/02/23 History mirabegron 50 mg tablet,extended 50 mg PO QAM 11/17/23 12/02/23 History release 24 hr (Myrbetriq) mirtazapine 30 mg tablet 30 mg PO QAM 11/17/23 12/02/23 History potassium chloride 10 mEq 10 meq PO BIDM 11/17/23 12/02/23 History tablet,extended release propylene glycol 0.6 % eye drops 2 drp ophthalmic (eye) DAILY PRN 11/17/23 12/02/23 History (Systane Balance) Dry Eye(S) sodium phosphates 19 gram-7 118 ml MD DAILY PRN Constipation 11/17/23 12/02/23 History gram/118 mL enema (Fleet Enema) hydrocodone 10 mg-acetaminophen 1 tab PO Q6H PRN pain 5-10/10 pain 11/21/23 12/02/23 Rx 325 mg tablet scale #10 tabs acetaminophen 650 mg rectal 650 mg MD Q6H PRN Fever 12/02/23 12/02/23 History suppository calcium carbonate 500 mg calcium 1,000 mg PO Q6H PRN Indigestion 12/02/23 12/02/23 History (1,250 mg) chewable tablet ceftriaxone 1 gram solution for 1 g IM .DAILY@1230 12/02/23 12/02/23 History injection levothyroxine 150 mcg tablet 150 mcg PO DAILYBB 12/02/23 12/02/23 History magnesium hydroxide 400 mg/5 mL 30 ml PO DAILY PRN NO BM FOR 3 12/02/23 12/02/23 History oral suspension (Milk of Magnesia) DAYS. omega-3 fatty acids 1,000 mg 1,000 mg PO QAM 12/02/23 12/02/23 History capsule promethazine 25 mg tablet 25 mg PO Q6H PRN NAUSEA/VOMITING 12/02/23 12/02/23 History promethazine 25 mg/mL injection 25 mg IM Q6H PRN NAUSEA/VOMITING 12/02/23 12/02/23 History solution Past Med/Surg History Medical History Constipation Mixed urge and stress incontinence Depression CAD (coronary atherosclerotic disease) Rheumatoid arthritis Cognitive communication deficit Chronic pain syndrome Hypothyroidism Asthma GERD (gastroesophageal reflux disease) Hypertension Unspecified dementia, unspecified severity, without behavioral disturbance, psychotic disturbance, mood disturbance, and anxiety Family History Mother , in her mid 80s of diabetic complications Diabetes Father , in his mid 80s No problems noted. 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 Increased word finding difficulty but no dysarthria HEENT: Atraumatic, normocephalic. Trace left lip droop which corrects on cheek puff and smile. Vision intact. Pupils equal and reactive to Pulm: CTAB A&P. -wheezes, -rales, -rhonchi. Symmetrical chest rise. No increased work of breathing. No respiratory distress. Cardiac: RRR, -mrg. Radial pulses intact and symmetrical. Abdominal: Nontender, nondistended, soft. BS present. Extremities patient with some residual left greater than right-sided weakness, at bedside assessment her hose inspector and patcher strength, elbow flexion, ankle dorsiflexion/plantarflexion, and hip flexion are symmetrical bilaterally but patient does fatigue extremely easily. Sensation intact in hands and feet without asymmetry. Results & Data Results & Data Vital Signs (Past 12 Hours) Vital Signs Temp Pulse Pulse Resp BP BP Pulse Ox 12/02/23 16:07 82 18 99/52 L 95 12/02/23 15:54 81 18 139/76 100 12/02/23 15:05 93 12/02/23 15:05 16 97/68 L 97 12/02/23 15:05 12/02/23 15:05 36.6 C 90 18 97/68 L 96 O2 Del Method 12/02/23 16:07 Room Air 12/02/23 15:54 Room Air 12/02/23 15:05 12/02/23 15:05 12/02/23 15:05 Room Air 12/02/23 15:05 Room Air PG Care Time/CCT Total # of Minutes Spent Total Time Spent with Patient: Total time spent is greater than 50% in coordination of care (as documented) at patient's floor/unit and/or counseling patient: Coding Level of Care Code 55818 INT INP/OBS CARE MIN Diagnoses Pulmonary emboli I26.99 Left hemiparesis G81.94 Complicated UTI (urinary tract infection) N39.0 CAD (coronary atherosclerotic disease) I25.10 Hypertension I10 Counseling regarding goals of care Z71.89
[2023-12-02] MEDS ORDERED: LACTATED RINGER'S 500 ML IV ONE (16:27)
[2023-12-02] MEDS ORDERED: Heparin IV Adult Wt-Based Standard w/ INITIAL Bolus Protocol IV SCH (16:33)
[2023-12-02] MEDS ORDERED: HEPARIN SOD (PORCINE) 1000 UNIT/ML IV ONE (16:43)
[2023-12-02] MEDS ORDERED: HEPARIN SODIUM/DEXTROSE 25,000 UNITS/500 ML BAG IV SCH (16:45)
[2023-12-02] MEDS ORDERED: PLASMA LYTE A IV ONE (17:18)
[2023-12-02] MEDS: PLASMA-LYTE A 1,000 ML IV SCH (20:09)
[2023-12-02] MEDS: ACETAMINOPHEN 1,000 MG/100 ML VIAL IV PRN (20:11)
--- NOTE | 2023-12-02 20:21 | Ultrasound Report ---
Exam(s): US VENOUS RIGHT LOWER EXTREMITY EXAM: US Duplex Right Lower Extremity Veins CLINICAL HISTORY: Reason for exam: PE, calf pain. TECHNIQUE: Real-time duplex ultrasound scan of the right lower extremity veins integrating B-mode two-dimensional vascular structure, Doppler spectral analysis, color flow Doppler imaging and compression. COMPARISON: No relevant prior studies available. FINDINGS: Deep veins: Unremarkable. The visualized deep veins of the right lower extremity are compressible with color flow. No visualized thrombus. Superficial veins: Unremarkable. Soft tissues: No acute findings. IMPRESSION: No DVT within the right lower extremity. Electronically signed by: Ceferino Estrella MD 12/02/23 20:20 PM
[2023-12-02] MEDS ORDERED: HYDROmorphone INJ 0.5 MG/0.5 ML SYR IV STA (22:29)
[2023-12-03 00:27] LABS: ANTI-Xa, UFH(UnfractionatedHep 0.72 IU/ml (0.3-0.7)
--- NOTE | 2023-12-03 06:13 | Electrocardiogram Report ---
Test Reason : Blood Pressure : / mmHG Vent. Rate : 087 BPM Atrial Rate : 087 BPM P-R Int : 240 ms QRS Dur : 134 ms QT Int : 420 ms P-R-T Axes : 017 -78 057 degrees QTc Int : 505 ms Sinus rhythm with 1st degree A-V block Left axis deviation Right bundle branch block Possible Anterolateral infarct , age undetermined Inferior infarct , age undetermined Abnormal ECG When compared with ECG of 17-NOV-2023 11:40, Anterolateral infarct is now Present Confirmed by Alirio Barton ([id number]) on 12/03/2023 6:13:25 AM Referred By: Confirmed By:Alirio Barton
[2023-12-03 07:19] LABS: Basophils # (auto) 0.06 K/uL (0.00-0.20); Basophils % (auto) 0.6 %; Eosinophils # (auto) 0.46 K/uL (0.00-0.50); Eosinophils % (auto) 4.6 %; Hematocrit (blood only) 37.7 % (37.0-47.0); Hemoglobin 12.6 g/dl (12.0-16.0); Immature Granulocytes # (auto) 0.05 K/uL (0.01-0.20); Immature Granulocytes % (auto) 0.5 %; Lymphocytes # (auto) 0.56 K/uL (1.20-3.40); Lymphocytes % (auto) 5.6 %; Mean Corpuscular Hemoglobin 31.6 pg (25.0-34.0); Mean Corpuscular Hgb Conc 33.4 g/dL (32.0-36.0); Mean Corpuscular Volume 94.5 fL (80.0-100.0); Mean Platelet Volume 9.8 fL (9.4-12.4); Monocytes # (auto) 0.38 K/uL (0.11-0.59); Monocytes % (auto) 3.8 %; Neutrophils # (auto) 8.57 K/uL (1.40-6.50); Neutrophils % (auto) 84.9 %; Platelet Count 198 K/uL (130-400); RDW Coefficient of Variation 13.6 % (11.5-14.5); RDW Standard Deviation 47.3 fL (36.4-46.3); Red Blood Count 3.99 M/uL (4.20-5.40); White Blood Count 10.08 K/ul (4.8-10.8)
[2023-12-03 07:40] LABS: BUN Creatinine Ratio 18.3 (10-20); Calcium 8.2 mg/dl (8.6-10.3); Creatinine Clr Calc Pharmacy 48.4 ml/min; Est GFR (African American) 59.6 ml/min; Est GFR (Non-African American) 51.4 ml/min; Potassium 3.9 mmol/L (3.5-5.1)
[2023-12-03 07:44] LABS: ANTI-Xa, UFH(UnfractionatedHep 0.46 IU/ml (0.3-0.7)
[2023-12-03] MEDS: PLASMA-LYTE A 1,000 ML IV SCH ×2 (08:11→20:15)
[2023-12-03] MEDS: ACETAMINOPHEN 1,000 MG/100 ML VIAL IV PRN (08:26)
--- NOTE | 2023-12-03 12:15 | Hospitalist Progress Note ---
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 Sensation intact in hands and feet without asymmetry Left facial droop is present on admitting exam; this does correct with cheek puff and smile at time of admission. No other focal neurologic deficits on exam Do not suspect acute stroke, CT of the head does not show any acute findings. Patient did have some left-sided symptoms which appear back to baseline time of assessment, and this may have been worsened deficits in the setting of volume depletion and UTI .MRI is limited as patient has a spinal stimulator without the remote or known history of which institution performed this Oral meds held until swallow eval can be performed 12/03, will automatically fail bedside swallow due to resting facial droop although this is chronic and does not appear to have changed recently per discussion with daughters. If unable to tolerate p.o. convert Synthroid to IV at 70% and switch antiplatelet to rectal aspirin (3) Complicated UTI (urinary tract infection): Plan: Urine cultures growing E. coli, pansensitive Continue IV Rocephin Convert to oral antibiotics upon discharge. (4) CAD (coronary atherosclerotic disease): Plan: History of PCI >1 yr ago per pt, pending record. Aspirin/Plavix switched to anticoagulation+plaavix on admit -No chest pain on admission Troponin minimally elevated pending equivocal, suspect demand vs mild strain (5) Hypertension: Plan: Antihypertensives held on admission (6) Counseling regarding goals of care: Plan: Paula is able to answer questions and give some understanding of her medical condition but has difficulty verbalizing back risks/benefits of various medical treatments. As such her daughters, daughter Joyce who is her surrogate decision-maker, were included on conversations on decision making by phone. Paula was previously DNR/DNI but her last admission and more recently has expressed a desire to be full code which they would like to honor but will have ongoing discussions regarding whether resuscitation would be consistent with her overall care goals. They are aware that she is being treated for a UTI, and being resuscitated with fluids and has already been given antibiotics which are continued. I discussed her presentation that may have been worsened deficits due to acute illness worsening prior CVA deficits and that her CT does not show any new strokelike findings, although MRI would be the gold standard this is limited by her spinal stimulator without additional information to switch this device to an MRI compatible mode available. Discussed the right upper quadrant PEs which were noted on her neck angiography. Patient was hypotensive however do not suspect this was from a massive PE, more likely from severe volume depletion although she does have a slightly elevated troponin and minimally elevated BNP. They expressed that in the event that she were to have a code overnight and a massive PE was strongly suspected then they would want a trial of either full or dose reduced thrombolysis knowing that there is a high bleeding risk and that this is with increased risk of intracranial bleed due to her recent stroke. Patient has had a clear expression in her advance directive that she does not want dialysis, given improving hemodynamics with sepsis treatment and underlying MARCY agree with treating with fluids, trending creatinine and obtaining a CTA and ~24 hours to qualify clot burden.. Agree with admission to PCU, transfer to ICU if hypotensive or decompensating, and care as discussed. They will be in to visit Jennifer tomorrow and are available by phone at [phone] in the case any emergencies develop or updates. If they wish to make any change or update to the CODE STATUS they will reach out to primary team (7) Left hemiparesis: Plan Awaiting evaluation by physical therapy, continue to monitor, hopefully discharge in next 4 to 48 hours Admission and Anticipated Discharge Date Admission Date: December 02, 2023 Subjective Patient seen and examined, denies chest pain or shortness of breath Review of Systems Review of Systems: All systems reviewed are negative, apart from the ones contained in the history. Physical Exam Physical Exam: The patient is awake, alert and oriented 3, well developed and well nourished, normocephalic and atraumatic, lying in bed and in no acute distress. HEENT--PERRL, EOMI, mucous membranes and oropharynx mildly dry Neck--supple. No JVD. No bruits. Thyroid normal, trachea midline, no adenopathy. Heart--normal S1 and S2. No murmurs, rubs or gallops. Lungs--clear bilaterally, no respiratory distress, no accessory muscle use. Abdomen--normal bowel sounds and soft. Mild epigastric and left sided abdominal pain Extremities--no cyanosis or clubbing. No edema. Dermatologic--normal skin turgor, normal color, no abnormal lymph nodes, no rash. Neurologic--cranial nerves II through XII grossly intact. Left hemiparesis Rheumatologic--normal range of motion. Psychiatric--normal affect. Results & Data Results & Data Vital Signs (Past 12 Hours) Vital Signs Temp Pulse Pulse Resp BP Pulse Ox O2 Del Method 12/03/23 11:08 98.4 F 73 20 117/70 91 Room Air 12/03/23 08:00 Room Air 12/03/23 07:30 82 12/03/23 07:18 98.6 F 83 20 112/66 92 Room Air 12/03/23 02:38 98.1 F 71 18 126/98 99 Room Air PG Care Time/CCT Total # of Minutes Spent Total Time Spent with Patient: Total time spent is greater than 50% in coordination of care (as documented) at patient's floor/unit and/or counseling patient: Coding Level of Care Code 58359 SUB INP/OBS CARE 2/35MIN Diagnoses Pulmonary emboli I26.99 Stroke I63.9 Complicated UTI (urinary tract infection) N39.0 CAD (coronary atherosclerotic disease) I25.10 Hypertension I10 Counseling regarding goals of care Z71.89 Left hemiparesis G81.94 Time Spent (min) 35
[2023-12-03] MEDS: APIXABAN 5 MG TABLET PO SCH ×2 (14:38→20:13)
[2023-12-03] MEDS: LEVOTHYROXINE SODIUM 150 MCG TABLET PO SCH (14:38)
[2023-12-03] MEDS: cefTRIAXone SODIUM 2,000 MG in DEXTROSE 5 % MINI-B 50 ML IV SCH (20:14)
[2023-12-03] MEDS: HYDROcodone/ACETAMINOPHEN 10/325 TAB PO PRN (20:14)
[2023-12-03] MEDS: DULoxetine HCL 60 MG CAP PO SCH (20:15)
[2023-12-03] MEDS: MELATONIN 3 MG TAB PO PRN (22:59)
[2023-12-04] MEDS: LEVOTHYROXINE SODIUM 150 MCG TABLET PO SCH (05:44)
[2023-12-04 07:47] LABS: Basophils # (auto) 0.04 K/uL (0.00-0.20); Basophils % (auto) 0.8 %; Eosinophils # (auto) 0.69 K/uL (0.00-0.50); Hematocrit (blood only) 37.2 % (37.0-47.0); Hemoglobin 12.3 g/dl (12.0-16.0); Immature Granulocytes # (auto) 0.01 K/uL (0.01-0.20); Immature Granulocytes % (auto) 0.2 %; Lymphocytes # (auto) 0.54 K/uL (1.20-3.40); Lymphocytes % (auto) 10.2 %; Mean Corpuscular Hemoglobin 31.5 pg (25.0-34.0); Mean Corpuscular Hgb Conc 33.1 g/dL (32.0-36.0); Mean Corpuscular Volume 95.4 fL (80.0-100.0); Mean Platelet Volume 9.8 fL (9.4-12.4); Monocytes # (auto) 0.38 K/uL (0.11-0.59); Monocytes % (auto) 7.2 %; Neutrophils # (auto) 3.65 K/uL (1.40-6.50); Neutrophils % (auto) 68.6 %; Platelet Count 193 K/uL (130-400); RDW Coefficient of Variation 13.3 % (11.5-14.5); RDW Standard Deviation 47.1 fL (36.4-46.3); White Blood Count 5.31 K/ul (4.8-10.8)
[2023-12-04 08:10] LABS: BUN Creatinine Ratio 14.7 (10-20); Calcium 8.7 mg/dl (8.6-10.3); Creatinine Clr Calc Pharmacy 67.2 ml/min; Est GFR (African American) 88.5 ml/min; Est GFR (Non-African American) 76.3 ml/min; Potassium 3.8 mmol/L (3.5-5.1)
[2023-12-04 08:23] LABS: ANTI-Xa, UFH(UnfractionatedHep > 1.50 IU/ml (0.3-0.7)
[2023-12-04] MEDS: PLASMA-LYTE A 1,000 ML IV SCH ×2 (08:58→20:23)
[2023-12-04] MEDS: VIBEGRON 75 MG TAB PO SCH (08:59)
[2023-12-04] MEDS: FUROSEMIDE 20 MG TAB PO SCH (08:59)
[2023-12-04] MEDS: OMEGA-3 (PURIFIED FISH OIL) 1 GM CAP PO SCH (09:00)
[2023-12-04] MEDS: ISOSORBIDE MONO EXTENDED REL 60 MG TABCR PO SCH (09:00)
[2023-12-04] MEDS: APIXABAN 5 MG TABLET PO SCH ×2 (09:00→20:24)
[2023-12-04] MEDS: MIRTAZAPINE TAB 15 MG TAB PO SCH (09:00)
[2023-12-04] MEDS: CLOPIDOGREL BISULFATE 75 MG TAB PO SCH (09:00)
[2023-12-04] MEDS: FOLIC ACID 1 MG TAB PO SCH (09:00)
[2023-12-04] MEDS: CYANOCOBALAMIN (B-12) 2,500 MCG TABLET SL SCH (09:00)
--- NOTE | 2023-12-04 10:15 | Hospitalist Progress Note ---
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 Sensation intact in hands and feet without asymmetry Left facial droop is present on admitting exam; this does correct with cheek puff and smile at time of admission. No other focal neurologic deficits on exam Do not suspect acute stroke, CT of the head does not show any acute findings. Patient did have some left-sided symptoms which appear back to baseline time of assessment, and this may have been worsened deficits in the setting of volume depletion and UTI .MRI is limited as patient has a spinal stimulator without the remote or known history of which institution performed this Oral meds held until swallow eval can be performed 12/03, will automatically fail bedside swallow due to resting facial droop although this is chronic and does not appear to have changed recently per discussion with daughters. If unable to tolerate p.o. convert Synthroid to IV at 70% and switch antiplatelet to rectal aspirin (3) Complicated UTI (urinary tract infection): Plan: Urine cultures growing E. coli, pansensitive Continue IV Rocephin Convert to oral antibiotics upon discharge. (4) CAD (coronary atherosclerotic disease): Plan: History of PCI >1 yr ago per pt, pending record. Aspirin/Plavix switched to anticoagulation+plaavix on admit -No chest pain on admission Troponin minimally elevated pending equivocal, suspect demand vs mild strain (5) Hypertension: Plan: Antihypertensives held on admission (6) Left hemiparesis: Plan: Residual hemiparesis from her CVA (7) Counseling regarding goals of care: Plan: Paula is able to answer questions and give some understanding of her medical condition but has difficulty verbalizing back risks/benefits of various medical treatments. As such her daughters, daughter Joyce who is her surrogate decision-maker, were included on conversations on decision making by phone. Paula was previously DNR/DNI but her last admission and more recently has expressed a desire to be full code which they would like to honor but will have ongoing discussions regarding whether resuscitation would be consistent with her overall care goals. They are aware that she is being treated for a UTI, and being resuscitated with fluids and has already been given antibiotics which are continued. I discussed her presentation that may have been worsened deficits due to acute illness worsening prior CVA deficits and that her CT does not show any new strokelike findings, although MRI would be the gold standard this is limited by her spinal stimulator without additional information to switch this device to an MRI compatible mode available. Discussed the right upper quadrant PEs which were noted on her neck angiography. Patient was hypotensive however do not suspect this was from a massive PE, more likely from severe volume depletion although she does have a slightly elevated troponin and minimally elevated BNP. They expressed that in the event that she were to have a code overnight and a massive PE was strongly suspected then they would want a trial of either full or dose reduced thrombolysis knowing that there is a high bleeding risk and that this is with increased risk of intracranial bleed due to her recent stroke. Patient has had a clear expression in her advance directive that she does not want dialysis, given improving hemodynamics with sepsis treatment and underlying MARCY agree with treating with fluids, trending creatinine and obtaining a CTA and ~24 hours to qualify clot burden.. Agree with admission to PCU, transfer to ICU if hypotensive or decompensating, and care as discussed. They will be in to visit Jennifer tomorrow and are available by phone at [phone] in the case any emergencies develop or updates. If they wish to make any change or update to the CODE STATUS they will reach out to primary team Plan is to discharge the patient back to [facility] hopefully tomorrow 12/05/2023 Plan Plan is to discharge patient back to [place] care hopefully tomorrow 12/05/2023 Admission and Anticipated Discharge Date Admission Date: December 02, 2023 Subjective Patient seen and examined, denies chest pain or shortness of breath Review of Systems Review of Systems: All systems reviewed are negative, apart from the ones contained in the history. Physical Exam Physical Exam: The patient is awake, alert and oriented 3, well developed and well nourished, normocephalic and atraumatic, lying in bed and in no acute distress. HEENT--PERRL, EOMI, mucous membranes and oropharynx mildly dry Neck--supple. No JVD. No bruits. Thyroid normal, trachea midline, no adenopathy. Heart--normal S1 and S2. No murmurs, rubs or gallops. Lungs--clear bilaterally, no respiratory distress, no accessory muscle use. Abdomen--normal bowel sounds and soft. Mild epigastric and left sided abdominal pain Extremities--no cyanosis or clubbing. No edema. Dermatologic--normal skin turgor, normal color, no abnormal lymph nodes, no rash. Neurologic--cranial nerves II through XII grossly intact. Left hemiparesis Rheumatologic--normal range of motion. Psychiatric--normal affect. Results & Data Results & Data Vital Signs (Past 12 Hours) Vital Signs Temp Pulse Pulse Resp BP Pulse Ox O2 Del Method 12/04/23 07:30 97.5 F L 62 19 169/72 H 93 Room Air 12/04/23 07:00 61 12/04/23 02:46 97.9 F 64 18 142/72 H 94 Room Air 12/03/23 22:40 97.9 F 66 18 139/75 93 Room Air PG Care Time/CCT Total # of Minutes Spent Total Time Spent with Patient: Total time spent is greater than 50% in coordination of care (as documented) at patient's floor/unit and/or counseling patient: Coding Level of Care Code 03804 SUB INP/OBS CARE 2/35MIN Diagnoses Pulmonary emboli I26.99 Stroke I63.9 Complicated UTI (urinary tract infection) N39.0 CAD (coronary atherosclerotic disease) I25.10 Hypertension I10 Left hemiparesis G81.94 Counseling regarding goals of care Z71.89 Time Spent (min) 35
[2023-12-04] MEDS: HYDROcodone/ACETAMINOPHEN 10/325 TAB PO PRN ×2 (13:19→20:24)
[2023-12-04] MEDS: cefTRIAXone SODIUM 2,000 MG in DEXTROSE 5 % MINI-B 50 ML IV SCH (20:23)
[2023-12-04] MEDS: MELATONIN 3 MG TAB PO PRN (20:23)
[2023-12-04] MEDS: DULoxetine HCL 60 MG CAP PO SCH (20:24)
[2023-12-05] MEDS: LEVOTHYROXINE SODIUM 150 MCG TABLET PO SCH (05:56)
[2023-12-05 07:38] LABS: Basophils # (auto) 0.05 K/uL (0.00-0.20); Basophils % (auto) 0.9 %; Eosinophils # (auto) 0.65 K/uL (0.00-0.50); Eosinophils % (auto) 12.2 %; Hematocrit (blood only) 39.1 % (37.0-47.0); Hemoglobin 13.3 g/dl (12.0-16.0); Immature Granulocytes # (auto) 0.02 K/uL (0.01-0.20); Immature Granulocytes % (auto) 0.4 %; Lymphocytes # (auto) 0.71 K/uL (1.20-3.40); Lymphocytes % (auto) 13.4 %; Mean Corpuscular Hemoglobin 31.2 pg (25.0-34.0); Mean Corpuscular Volume 91.8 fL (80.0-100.0); Mean Platelet Volume 9.3 fL (9.4-12.4); Monocytes # (auto) 0.44 K/uL (0.11-0.59); Monocytes % (auto) 8.3 %; Neutrophils # (auto) 3.44 K/uL (1.40-6.50); Neutrophils % (auto) 64.8 %; Platelet Count 220 K/uL (130-400); RDW Coefficient of Variation 13.3 % (11.5-14.5); RDW Standard Deviation 45.2 fL (36.4-46.3); Red Blood Count 4.26 M/uL (4.20-5.40); White Blood Count 5.31 K/ul (4.8-10.8)
[2023-12-05 08:00] LABS: BUN Creatinine Ratio 12.8 (10-20); Calcium 9.2 mg/dl (8.6-10.3); Est GFR (African American) 84.4 ml/min; Est GFR (Non-African American) 72.8 ml/min; Potassium 3.9 mmol/L (3.5-5.1)
[2023-12-05] MEDS: HYDROcodone/ACETAMINOPHEN 10/325 TAB PO PRN ×2 (08:56→21:24)
[2023-12-05] MEDS: APIXABAN 5 MG TABLET PO SCH ×2 (08:57→20:01)
[2023-12-05] MEDS: CYANOCOBALAMIN (B-12) 2,500 MCG TABLET SL SCH (08:57)
[2023-12-05] MEDS: OMEGA-3 (PURIFIED FISH OIL) 1 GM CAP PO SCH (08:58)
[2023-12-05] MEDS: ISOSORBIDE MONO EXTENDED REL 60 MG TABCR PO SCH (08:58)
[2023-12-05] MEDS: MIRTAZAPINE TAB 15 MG TAB PO SCH (08:58)
[2023-12-05] MEDS: FUROSEMIDE 20 MG TAB PO SCH (08:58)
[2023-12-05] MEDS: CLOPIDOGREL BISULFATE 75 MG TAB PO SCH (08:59)
[2023-12-05] MEDS: VIBEGRON 75 MG TAB PO SCH (08:59)
[2023-12-05] MEDS: FOLIC ACID 1 MG TAB PO SCH (08:59)
[2023-12-05] MEDS: PLASMA-LYTE A 1,000 ML IV SCH (09:24)
[2023-12-05] MEDS ORDERED: OPTIRAY 320 125ml IV ONE (10:13)
--- NOTE | 2023-12-05 10:38 | CT Scan Report ---
CT angio chest PE protocol CT DOSE: 877.71 mGy.cm HISTORY: 78 years-old Female with PE. Acute shortness breath TECHNIQUE: Multiple CTA images of the chest were obtained after the intravenous administration of 112 ml Optiray. Coronal and sagittal MIPS were obtained from the axial data set and were submitted for review. All measurements were obtained according to NASCET criteria. A dose lowering technique was u tilized adhering to the principles of ALARA. COMPARISON: Chest radiograph 12/02/2023 FINDINGS: CTA: Moderate cardiomegaly with pericardial calcifications. No pericardial effusion. Extensive coronary ar billy calcifications. Atherosclerosis of the thoracic aorta without aneurysm or dissection. There is d escending thoracic aortic tortuosity. Right lobar, segmental and subsegmental pulmonary emboli, likel y acute. Probable subsegmental left-sided pulmonary emboli. No sagittal pulmonary embolus. No evidenc e of right-sided heart strain or pulmonary arterial hypertension. CT CHEST: No lymphadenopathy or thyroid nodule. Trace pleural effusions. No pneumothorax. Mild intralobular sep moses thickening with subsegmental bibasilar atelectasis. Bronchial wall thickening. No suspicious pulm onary nodules or masses. Central airways are patent. No large pulmonary infarct. Indeterminate 1.2 cm hypodensity of the spleen, favored to be benign. No acute upper abdominal abnorm ality. Degenerative changes of the spine and shoulders. Partially imaged lumbar spinal fusion hardwar e. A neurostimulator device is noted with leads present within the central canal the mid thoracic spi ne, imaged portions appearing intact. Partially imaged wedge deformity at L1. The L1 pedicle screws e xtend into the T12-L1 intervertebral disc space. Chronic appearing T12 compression deformity. IMPRESSION: 1. Right lung predominant pulmonary emboli as above which are likely acute. 2. Cardiomegaly with trace pleural effusions and suggestion of mild pulmonary edema. 3. No pulmonary infarct identified. 4. Additional findings as above. ACT 112: Negative or not required by law. The above report was generated using voice recognition software. It may contain grammatical, syntax o r spelling errors. Electronically signed by: Oral Andrew M.D. 12/05/2023 10:37 AM
[2023-12-05] MEDS: SODIUM CHLORIDE 0.9% 1,000 ML IV SCH ×2 (10:42→21:25)
--- NOTE | 2023-12-05 15:37 | Hospitalist Progress Note ---
Date of Service December 05, 2023 Assessment & Plan (1) Pulmonary emboli: Plan: Acute Right upper lobe pulmonary emboli and possibly some left-sided PE seen on chest CTA. She is now on Eliquis. She was initially on a heparin drip. Fortunately, she is not requiring any supplemental oxygen. Venous Doppler evaluation right lower extremity negative for DVT. Patient refused 2D echo to help assess for right ventricular heart strain. (2) Stroke: Plan: By history. Nothing acute. Continue current medical management. Residual mild left hemiparesis (3) Complicated UTI (urinary tract infection): Plan: Urine culture on November 29 grew E. coli, pansensitive. Treated with Rocephin since December 02 and now on oral Keflex. (4) CAD (coronary atherosclerotic disease): Plan: Stable. Continue current medical management. Troponin minimally elevated on admission without acute coronary syndrome. Suspect demand ischemia (5) Hypertension: Plan: Stable. Continue current medical management Plan Hopeful discharge back to [facility] tomorrow, December 06 Admission and Anticipated Discharge Date Admission Date: December 02, 2023 Subjective Alert. No new problems. Chest CTA obtained today, December 05 and she definitely has right upper lobe pulmonary emboli and might have some small PE on the left side also. This does not change therapy as she is now on Eliquis. She is not requiring any oxygen. Venous Doppler of the right lower extremity negative for DVT. Rocephin has been switched to Keflex. She has a bed hold at [facility]. Hopefully she can return tomorrow, December 06 Review of Systems 2 Review of Systems: Constitutional-no fever or chills ENT-no blurred vision, no double vision, no epistaxis, no sore throat Respiratory-no cough, no wheezing, no shortness of breath Cardiac-no palpitations, no chest pain, no syncope GI-no nausea, vomiting, diarrhea, melena, hematochezia -no urinary retention, no urinary incontinence, no dysuria, no hematuria Musculoskeletal-no joint pain, no muscle tenderness Skin-no bruising, no rashes, no pruritus Neuro-no isolated weakness, no paresthesia, no weakness Psych-no depression, no anxiety Physical Exam 2 Physical Exam: General-alert but confused, no fever, no chills HEENT-head atraumatic and normocephalic, pupils equal and reactive to light, extraocular muscles intact Neck-no lymphadenopathy or thyromegaly, trachea midline Chest-clear to auscultation. No rales, wheezing or rhonchi Cardiac-regular rate and rhythm, normal S1 and S2 Abdomen-normal bowel sounds, nontender, no hepatosplenomegaly Extremities-no cyanosis, clubbing, or edema Neuro-cranial nerves II through XII intact, motor and sensory function within normal limits, strength symmetrical, no focal deficits Psych-normal affect, normal mood Results & Data Results & Data Vital Signs (Past 12 Hours) Vital Signs Temp Pulse Resp BP Pulse Ox O2 Del Method 12/05/23 11:05 36.4 C L 72 19 163/84 H 96 Room Air 12/05/23 08:00 Room Air 12/05/23 07:13 36.6 C 64 20 173/99 H 92 Room Air 12/05/23 03:55 36.6 C 65 18 167/76 H 93 Room Air Laboratory Results 12/05/23 07:09 12/05/23 07:09 PG Care Time/CCT Total # of Minutes Spent Total Time Spent with Patient: Total time spent is greater than 50% in coordination of care (as documented) at patient's floor/unit and/or counseling patient: Coding Level of Care Code 17370 SUB INP/OBS CARE 3/50MIN Diagnoses Pulmonary emboli I26.99 Stroke I63.9 Complicated UTI (urinary tract infection) N39.0 CAD (coronary atherosclerotic disease) I25.10 Hypertension I10
[2023-12-05] MEDS: ACETAMINOPHEN 500 MG TAB PO PRN (16:06)
--- NOTE | 2023-12-05 16:34 | Electrocardiogram Report ---
Test Reason : Blood Pressure : / mmHG Vent. Rate : 071 BPM Atrial Rate : 071 BPM P-R Int : 238 ms QRS Dur : 132 ms QT Int : 414 ms P-R-T Axes : 023 -47 -34 degrees QTc Int : 449 ms Sinus rhythm with 1st degree A-V block Left axis deviation Right bundle branch block possible Inferior infarct (cited on or before 02-DEC-2023) Abnormal ECG Confirmed by Herman Toledo ([id number]) on 12/05/2023 4:34:00 PM Referred By: REFERRED SELF Confirmed By:Abdi Toledo
[2023-12-05] MEDS: cephALEXin 500 MG CAP PO SCH ×2 (17:13→20:00)
[2023-12-05] MEDS: DULoxetine HCL 60 MG CAP PO SCH (19:59)
[2023-12-06] MEDS: LEVOTHYROXINE SODIUM 150 MCG TABLET PO SCH (05:55)
[2023-12-06 07:14] LABS: Basophils # (auto) 0.05 K/uL (0.00-0.20); Eosinophils # (auto) 0.71 K/uL (0.00-0.50); Eosinophils % (auto) 14.6 %; Hematocrit (blood only) 40.6 % (37.0-47.0); Hemoglobin 13.5 g/dl (12.0-16.0); Immature Granulocytes # (auto) 0.01 K/uL (0.01-0.20); Immature Granulocytes % (auto) 0.2 %; Lymphocytes # (auto) 0.82 K/uL (1.20-3.40); Lymphocytes % (auto) 16.9 %; Mean Corpuscular Hemoglobin 31.4 pg (25.0-34.0); Mean Corpuscular Hgb Conc 33.3 g/dL (32.0-36.0); Mean Corpuscular Volume 94.4 fL (80.0-100.0); Mean Platelet Volume 9.5 fL (9.4-12.4); Monocytes # (auto) 0.46 K/uL (0.11-0.59); Monocytes % (auto) 9.5 %; Neutrophils % (auto) 57.8 %; Platelet Count 254 K/uL (130-400); RDW Coefficient of Variation 13.3 % (11.5-14.5); RDW Standard Deviation 45.3 fL (36.4-46.3); White Blood Count 4.85 K/ul (4.8-10.8)
[2023-12-06 07:29] LABS: BUN Creatinine Ratio 15.6 (10-20); Calcium 9.1 mg/dl (8.6-10.3); Creatinine Clr Calc Pharmacy 64.5 ml/min; Est GFR (African American) 85.7 ml/min
[2023-12-06] MEDS: APIXABAN 5 MG TABLET PO SCH ×2 (09:26→20:02)
[2023-12-06] MEDS: CYANOCOBALAMIN (B-12) 2,500 MCG TABLET SL SCH (09:27)
[2023-12-06] MEDS: CLOPIDOGREL BISULFATE 75 MG TAB PO SCH (09:27)
[2023-12-06] MEDS: cephALEXin 500 MG CAP PO SCH ×4 (09:27→20:02)
[2023-12-06] MEDS: ISOSORBIDE MONO EXTENDED REL 60 MG TABCR PO SCH (09:28)
[2023-12-06] MEDS: FOLIC ACID 1 MG TAB PO SCH (09:28)
[2023-12-06] MEDS: OMEGA-3 (PURIFIED FISH OIL) 1 GM CAP PO SCH (09:28)
[2023-12-06] MEDS: VIBEGRON 75 MG TAB PO SCH (09:29)
[2023-12-06] MEDS: MIRTAZAPINE TAB 15 MG TAB PO SCH (09:29)
--- NOTE | 2023-12-06 11:41 | Discharge Summary ---
Date of Service December 06, 2023 Admission HPI Per Admitting Provider Jennifer is a 78-year-old female with past medical history of CVA, small vessel disease, hypertension, GERD, asthma, hypothyroidism, chronic pain, dysphagia recently admitted for strokelike deficits from 11/17/2023 until 11/21/2023 for and was found to have right basal ganglia/thalamic stroke on CT likely culprit region leading to her presentation at that time with left sided symptoms/leg weakness. Additional left-sided thalamic/pontine infarcts were noted. MRI at that time was not able to be obtained as patient has a spinal cord stimulator without operation remote, and does not know which hospital or surgeon performed the procedure. She had no A-fib or flutter noted at that time, and was ultimately discharged on dual antiplatelet therapy. While she was pending completion of her stroke evaluation she was on SCDs, and following stability she was started on pharmacologic stroke prophylaxis on 11/20 until discharge. At time of discharge she had some remaining weakness to left hip flexion. She has an additional history of CAD with prior PCI and stenting and was continued on DAPT, patient was not on beta-willie therapy and was unclear why this had been deferred. Lipitor was started and continued on discharge she had prior COVID exposure preceding that admission but was COVID-negative during her stay. At bedside evaluation she is normotensive with a pressure of 139/76, pulse of 81, and satting 100% on room air although is with the subjective feeling of intermittent dyspnea. Reports he feels weak all over but denies focal weakness or worsened weakness in any particular extremity. She is oriented to name month and place but has increased speech latency and is intermittently confused, somewhat limited historian. She denies chest pain, chest pressure, abdominal pain, nausea/vomiting. She is thirsty. She is not sure when her last bowel movement was. She denies inspiratory pain. She reports she does have some discomfort in her right calf which she thinks is new in the last few days but is not sure. Collateral is collected from her daughter Bobby by phone. They report that since being at [facility] she was doing okay after initial discharge but in the last few days had a UTI. She has been eating and drinking very little and was very dehydrated when they saw her earlier in the week. She was treated with Cipro then Bactrim then Rocephin for a UTI and had 1 dose of Rocephin this morning before coming to the ER. They note that she did have a fever and some vomiting earlier in the week, this is confirmed by [facility] nursing. Daughter reprots no history of stroke or heart disease in the family. Daughter is concerned about whether her overall decline is related to COVID vaccinations or shots. Discussed w [facility]. aspirin and plaavix were given this morning. Cipro x1d on 11/30, bactrim 12/01 --> then one dose of rocephin today. UC+ E. coli. Was referred today for general illness, fatigue, nausea, and some confusion with more L leg weakness which was dragging mor cornelio n orphil. L arm was also weaker than her normal baseline. --> Stroke eval. No slurring/dysarthria but was clearly pronouncing name. Conversationally more limited with word finding/stuttering. Paula is able to answer questions and give some understanding of her medical condition but has difficulty verbalizing back risks/benefits of various medical treatments. As such her daughters, daughter Joyce who is her surrogate decision-maker, were included on conversations on decision making by phone. Paula was previously DNR/DNI but her last admission and more recently has exp ressed a desire to be full code which they would like to honor but will have ongoing discussions regarding whether resuscitation would be consistent with her overall care goals. They are aware that she is being treated for a UTI, and being resuscitated with fluids and has already been given antibiotics which are continued. I discussed her presentation that may have been worsened deficits due to acute illness worsening prior CVA deficits and that her CT does not show any new strokelike findings, although MRI would be the gold standard this is limited by her spinal stimulator without additional information to switch this device to an MRI compatible mode available. Discussed the right upper quadrant PEs which were noted on her neck angiography. Patient was hypotensive however do not suspect this was from a massive PE, more likely from severe volume depletion although she does have a slightly elevated troponin and minimally elevated BNP. They expressed that in the event that she were to have a code overnight and a massive PE was strongly suspected then they would want a trial of either full or dose reduced thrombolysis knowing that there is a high bleeding risk and that this is with increased risk of intracranial bleed due to her recent stroke. Patient has had a clear expression in her advance directive that she does not want dialysis, given improving hemodynamics with sepsis treatment and underlying MARCY agree with treating with fluids, trending creatinine and obtaining a CTA and ~24 hours to qualify clot burden.. Agree with admission to PCU, transfer to ICU if hypotensive or decompensating, and care as discussed. They will be in to visit Jennifer tomorrow and are available by phone at [phone] in the case any emergencies develop or updates Principal Diagnosis Bilateral pulmonary emboli, acute on chronic kidney disease stage III Discharge Exam General-alert but confused, no fever, no chills HEENT-head atraumatic and normocephalic, pupils equal and reactive to light, extraocular muscles intact Neck-no lymphadenopathy or thyromegaly, trachea midline Chest-clear to auscultation. No rales, wheezing or rhonchi Cardiac-regular rate and rhythm, normal S1 and S2 Abdomen-normal bowel sounds, nontender, no hepatosplenomegaly Extremities-no cyanosis, clubbing, or edema Neuro-cranial nerves II through XII intact, motor and sensory function within normal limits, strength symmetrical, no focal deficits Psych-normal affect, normal mood Discharge Data Allergies Allergy/AdvReac Type Severity Reaction Status Date / Time ibuprofen Allergy Unknown ON [facility] Verified 12/02/23 15:19 CARE MED LIST propylthiouracil Allergy Unknown ON [facility] Verified 12/02/23 15:19 CARE MED LIST Ordered Studies 12/02/23 14:50 CT head/brain wo con Stat 12/02/23 14:52 CT angio head w con Stat CT angio neck with con Stat 12/02/23 19:05 US leg [US venous doppler LE RT] Urgent 12/05/23 09:30 CT for pulmonary embolism PE [CT angio chest PE protocol] Stat Hospital Course (1) Pulmonary emboli: Acute Right upper lobe pulmonary emboli and possibly some left-sided PE seen on chest CTA. She is now on Eliquis. She was initially on a heparin drip. Fortunately, she is not requiring any supplemental oxygen. Venous Doppler evaluation right lower extremity negative for DVT. Patient refused 2D echo to help assess for right ventricular heart strain. (2) Stroke: By history. Nothing acute. Continue current medical management. Residual mild left hemiparesis (3) Complicated UTI (urinary tract infection): Urine culture on November 29 grew E. coli, pansensitive. Treated with Rocephin since December 02 and now on oral Keflex. Antibiotics will be discontinued at discharge (4) CAD (coronary atherosclerotic disease): Stable. Continue current medical management. Troponin minimally elevated on admission without acute coronary syndrome. Suspect demand ischemia (5) Hypertension: Stable. Continue current medical management Plan Discharge to [facility] today, December 06 Total Time Total Time Spent Total Time Spent (In Minutes): 45-minute Discharge Plan Discharge Items Patient Disposition: Transfer Longterm Fac Reason For Visit: SEPSIS, PE, L SIDED WEAKNESS Discharge Diagnosis: Bilateral pulmonary emboli, acute on chronic kidney disease stage III Activity: Resume your previous activity Non-emergency contact: Primary Care Provider Call non-emergency contact if: you have any medication questions Follow-up/Referrals: Will Bhatia III, MD [Primary Care Provider] - Diet: Regular and Heart Healthy Addtl Attending Provider Instructions: Take Eliquis 10 mg twice daily for 2 more days then 5 mg twice daily thereafter. This will be taken for at least 3 months. Duration of treatment to be determined by PCP Pending Studies at Discharge: No Stand-Alone Forms: [facility] Skilled Items Patient informed of condition?: Yes DNR: Yes Discharge Level of Care: Skilled Communicable Disease: No Discharge Prognosis: Stable Lines: None Urinary Catheter: No Medications and DC Order Prescriptions: New Eliquis 5 mg tablet 5 mg PO BID Qty: 1 0RF Continued acetaminophen 650 mg Suppository 650 mg VT Q6H PRN (Reason: Fever) omega-3 fatty acids 1,000 mg Capsule 1,000 mg PO QAM magnesium hydroxide [Milk of Magnesia] 400 mg/5 mL Suspension 30 ml PO DAILY PRN (Reason: NO BM FOR 3 DAYS.) promethazine 25 mg/mL Solution 25 mg IM Q6H PRN (Reason: NAUSEA/VOMITING) Rx Instructions: STARTED 12/02/23 FOR 7 DAYS. promethazine 25 mg Tablet 25 mg PO Q6H PRN (Reason: NAUSEA/VOMITING) Rx Instructions: STARTED 12/02/23 FOR 7 DAYS levothyroxine 150 mcg Tablet 150 mcg PO DAILYBB calcium carbonate [Tums 500] 500 mg calcium (1,250 mg) Tablet,Chewable 1,000 mg PO Q6H PRN (Reason: Indigestion) acetaminophen [Tylenol] 325 mg Tablet 650 mg PO Q6H MDD 3 grams/24h PRN (Reason: pain 1-4/FEVER >100) cyanocobalamin (vitamin B-12) 2,500 mcg Tablet, Sublingual 2,500 mcg SUBLINGUAL QAM amlodipine 2.5 mg tablet 2.5 mg PO QAM potassium chloride 10 mEq tablet extended release 10 meq PO BIDM melatonin 3 mg Tablet 3 mg PO HS clopidogrel 75 mg tablet 75 mg PO QAM aspirin 81 mg Tablet,Delayed Release (Dr/Ec) 81 mg PO QAM isosorbide mononitrate 60 mg tablet extended release 24 hr 60 mg PO QAM bisacodyl [Dulcolax (bisacodyl)] 10 mg Suppository 10 mg VT DAILY PRN (Reason: Constipation) Rx Instructions: day 3 of no BM mirtazapine 30 mg tablet 30 mg PO QAM Premarin 0.625 mg/gram cream 1 applic vaginal [id number] Rx Instructions: TUESDAY & THURSDAYS @ [facility] Enema 19-7 gram/118 mL Enema 118 ml VT DAILY PRN (Reason: Constipation) Rx Instructions: day 4 of no BM docusate sodium 100 mg Capsule 200 mg PO HS folic acid 1 mg tablet 1 mg PO QAM furosemide 20 mg tablet 20 mg PO QAM duloxetine 60 mg capsule,delayed release(DR/EC) 60 mg PO HS diclofenac sodium 1 % gel 2 - 4 g TOPICAL QID Rx Instructions: 2 grams to hand/wrists and 4 grams to knees Systane Balance 0.6 % Drops 2 drp OPHTHALMIC (EYE) DAILY PRN (Reason: Dry Eye(S)) Myrbetriq 50 mg tablet extended release 24 hr 50 mg PO QAM hydrocodone-acetaminophen 10-325 mg tablet 1 tab PO Q6H MDD 3gm Tylenol/24h PRN (Reason: pain 5-10/10 pain scale) Qty: 10 0RF Discontinued ceftriaxone 1 gram Recon Soln 1 g IM .DAILY@1230 Rx Instructions: STARTED 12/02/23 FOR 7 DAYS. MIX WITH 2.1 ML OF LIDOCAINE 1% TO ADMINISTER methenamine hippurate 1 gram tablet 1 g PO BID Discharge Orders: Discharge Order (Routine); Ordered 12/06/23 Ordered By: Pino Castaneda Admission Data Admit Date/Time: 12/02/23 17:35 Attending Provider: Pino Castaneda Admit Provider: Cale Leyva Primary Care Provider: Will Bhatia III Other Providers: [facility] Coding Level of Care Code 14881 INP/OBS DISCH >30 MIN Diagnoses Pulmonary emboli I26.99 Stroke I63.9 Complicated UTI (urinary tract infection) N39.0 CAD (coronary atherosclerotic disease) I25.10 Hypertension I10
--- NOTE | 2023-12-06 13:58 | Hospitalist Progress Note ---
Date of Service December 06, 2023 Assessment & Plan (1) Pulmonary emboli: Plan: Acute Right upper lobe pulmonary emboli and possibly some left-sided PE seen on chest CTA. She is now on Eliquis. She was initially on a heparin drip. Fortunately, she is not requiring any supplemental oxygen. Venous Doppler evaluation right lower extremity negative for DVT. Patient refused 2D echo to help assess for right ventricular heart strain. (2) Stroke: Plan: By history. Nothing acute. Continue current medical management. Residual mild left hemiparesis (3) Complicated UTI (urinary tract infection): Plan: Urine culture on November 29 grew E. coli, pansensitive. Treated with Rocephin since December 02 and now on oral Keflex. Antibiotics will be discontinued at discharge (4) CAD (coronary atherosclerotic disease): Plan: Stable. Continue current medical management. Troponin minimally elevated on admission without acute coronary syndrome. Suspect demand ischemia (5) Hypertension: Plan: Stable. Continue current medical management Plan [facility] tomorrow[facility] 07 Admission and Anticipated Discharge Date Admission Date: December 02, 2023 Subjective Anticipated discharge to [facility] canceled because of lack of transport. Will try again tomorrowDecember 07 Review of Systems Review of Systems: Constitutional-no fever or chills ENT-no blurred vision, no double vision, no epistaxis, no sore throat Respiratory-no cough, no wheezing, no shortness of breath Cardiac-no palpitations, no chest pain, no syncope GI-no nausea, vomiting, diarrhea, melena, hematochezia -no urinary retention, no urinary incontinence, no dysuria, no hematuria Musculoskeletal-no joint pain, no muscle tenderness Skin-no bruising, no rashes, no pruritus Neuro-no isolated weakness, no paresthesia, no weakness Psych-no depression, no anxiety Physical Exam Physical Exam: General-alert but confused, no fever, no chills HEENT-head atraumatic and normocephalic, pupils equal and reactive to light, extraocular muscles intact Neck-no lymphadenopathy or thyromegaly, trachea midline Chest-clear to auscultation. No rales, wheezing or rhonchi Cardiac-regular rate and rhythm, normal S1 and S2 Abdomen-normal bowel sounds, nontender, no hepatosplenomegaly Extremities-no cyanosis, clubbing, or edema Neuro-cranial nerves II through XII intact, motor and sensory function within normal limits, strength symmetrical, no focal deficits Psych-normal affect, normal mood Results & Data Results & Data Vital Signs (Past 12 Hours) Vital Signs Temp Pulse Resp BP BP Pulse Ox O2 Del Method 12/06/23 12:01 36.6 C 80 18 151/90 H 144/94 H 94 12/06/23 11:00 36.6 C 80 18 151/90 H 94 Room Air 12/06/23 08:21 37 C 76 16 144/94 H 94 Room Air 12/06/23 03:55 36.7 C 62 20 156/87 H 93 Room Air PG Care Time/CCT Total # of Minutes Spent Total Time Spent with Patient: Total time spent is greater than 50% in coordination of care (as documented) at patient's floor/unit and/or counseling patient: Coding Level of Care Code 51845 SUB INP/OBS CARE 2/35MIN Diagnoses Pulmonary emboli I26.99 Stroke I63.9 Complicated UTI (urinary tract infection) N39.0 CAD (coronary atherosclerotic disease) I25.10 Hypertension I10
[2023-12-06] MEDS: ACETAMINOPHEN 500 MG TAB PO PRN (14:39)
[2023-12-06] MEDS: DULoxetine HCL 60 MG CAP PO SCH (20:02)
[2023-12-07] MEDS: LEVOTHYROXINE SODIUM 150 MCG TABLET PO SCH (06:18)
[2023-12-07 07:56] LABS: Basophils # (auto) 0.05 K/uL (0.00-0.20); Basophils % (auto) 0.8 %; Eosinophils # (auto) 0.69 K/uL (0.00-0.50); Eosinophils % (auto) 10.4 %; Hematocrit (blood only) 41.7 % (37.0-47.0); Hemoglobin 14.1 g/dl (12.0-16.0); Immature Granulocytes # (auto) 0.03 K/uL (0.01-0.20); Immature Granulocytes % (auto) 0.5 %; Lymphocytes # (auto) 0.94 K/uL (1.20-3.40); Lymphocytes % (auto) 14.2 %; Mean Corpuscular Hemoglobin 31.7 pg (25.0-34.0); Mean Corpuscular Hgb Conc 33.8 g/dL (32.0-36.0); Mean Corpuscular Volume 93.7 fL (80.0-100.0); Mean Platelet Volume 9.5 fL (9.4-12.4); Monocytes # (auto) 0.63 K/uL (0.11-0.59); Monocytes % (auto) 9.5 %; Neutrophils % (auto) 64.6 %; Platelet Count 282 K/uL (130-400); RDW Coefficient of Variation 13.2 % (11.5-14.5); RDW Standard Deviation 45.2 fL (36.4-46.3); Red Blood Count 4.45 M/uL (4.20-5.40); White Blood Count 6.64 K/ul (4.8-10.8)
[2023-12-07] MEDS: OMEGA-3 (PURIFIED FISH OIL) 1 GM CAP PO SCH (08:18)
[2023-12-07] MEDS: FOLIC ACID 1 MG TAB PO SCH (08:18)
[2023-12-07] MEDS: CYANOCOBALAMIN (B-12) 2,500 MCG TABLET SL SCH (08:18)
[2023-12-07] MEDS: CLOPIDOGREL BISULFATE 75 MG TAB PO SCH (08:18)
[2023-12-07] MEDS: ISOSORBIDE MONO EXTENDED REL 60 MG TABCR PO SCH (08:18)
[2023-12-07] MEDS: MIRTAZAPINE TAB 15 MG TAB PO SCH (08:18)
[2023-12-07] MEDS: APIXABAN 5 MG TABLET PO SCH (08:19)
[2023-12-07] MEDS: VIBEGRON 75 MG TAB PO SCH (08:19)
[2023-12-07] MEDS: cephALEXin 500 MG CAP PO SCH (08:19)
[2023-12-07 08:50] LABS: Calcium 9.6 mg/dl (8.6-10.3)
[2023-12-07 08:56] LABS: BUN Creatinine Ratio 17.6 (10-20); Creatinine Clr Calc Pharmacy 66.8 ml/min; Est GFR (African American) 89.9 ml/min; Est GFR (Non-African American) 77.6 ml/min
== END 2023-12-07 11:00 | DRG 176 ==
LOC: ED 14:46 → SUATTDRO 17:35 → EDINP 17:35 → 2S 19:32

== ENCOUNTER 2024-09-11 15:59 | Inpatient (IN) ==
--- NOTE | 2024-09-11 16:22 | Emergency Department Note ---
Impression & Plan Complicated urinary tract infection, Dementia, Confusion ED Provider Note NAME: IVETH WATT AGE: 78 SEX: F : 1945 ARRIVES VIA: Ambulance INFORMANT: Patient, prior records ED PROVIDER(S): Charles Holcomb MD CHIEF COMPLAINT: Confusion, UTI MEDICAL DECISION MAKING: Patient presents due to concern for worsening cephalopathy. IV was established and blood work was obtained. Per review of the patient's prior urine cultures the patient did have Pseudomonas which was not sensitive to cefepime. Meropenem ordered in light of this as well as other E. coli that were sensitive to meropenem in the past. Patient was ordered IV fluids. Blood cultures and lactate also ordered. Patient's blood work shows white count 12.6. H&H is normal with a normal platelet count. The patient's kidney function is unremarkable. Borderline elevation troponin 14.8. Urinalysis does not show evidence of obvious infection but patient is actively being treated for UTI with antibiotics currently. Urine culture added. Pro-Daljit 0.78. CT head negative. Chest x-ray with possible bilateral pleural effusions. Lactate of 0.9. Patient is not meningitic. Patient is afebrile. Meningitis to be less likely. I did speak the on-call hospital service Dr. Leyva and the patient was admitted to the medicine service. Discussion w/ other healthcare providers: Dr. Leyva inpatient medicine service Prior /Outside records reviewed: I did review center care note from earlier today Differential diagnosis: Infection, dehydration, metabolic abnormality, hypo/hyperglycemia, electrolyte imbalance, anemia, UTI, pneumonia, thyroid dysfunction among others were considered. Diagnostics, as interpreted by me: ECG: Sinus with first-degree AV block, rate of 80 prolonged KS wide QRS right bundle branch block pattern, normal axis T wave inversion inferiorly. Cardiac monitoring: An order was placed for continuous cardiac monitoring. The monitor shows a rate of 82 with sinus rhythm. Patient was placed on pulse oximetry Medical decision rules: None Imaging studies: I informally interpreted the patient's Chest x-ray does not show obvious pneumonia or pneumothorax possible trace pleural effusions. with formal report to follow. HPI: Patient presents due to concern for increased confusion. Patient with a very a reported history of dementia but worsening encephalopathy in the setting of recurrent UTI. Patient denies any head or neck pain. History may be unreliable given the patient's dementia. I did review a center care note that discussed the physician plan of care the patient has had increasing encephalopathy being treated antibiotics for recurrent UTI and family is concerned as to why she continues to have recurrence. They do note prior history of dementia but that her confusion seems to worsen her baseline. PAST MEDICAL HISTORY: See Below PAST SURGICAL HISTORY: See Below SOCIAL HISTORY: See Below HOME MEDICATIONS: See Below ALLERGIES: See Below VITALS: See Below PHYSICAL EXAMINATION: GENERAL: NAD, non-toxic. EYE EXAM: Normal conjunctiva. PERRL, no anisocoria and EOM's grossly intact w/o pain. OROPHARYNX: Moist mucus membranes, grossly normal dentition. NECK: Trachea midline, no stridor. Supple, no nuchal rigidity, no adenopathy, non-tender. No signs of meningismus. FROM of the neck with good chin to chest and neck extension. LUNGS: Clear to auscultation. Normal chest wall mechanics. HEART: NSR, no MRG. ABDOMEN: Abdomen soft, non-tender, no masses, no rebound or guarding. BACK: No CVA TTP. SKIN: No rashes and no bruising. UPPER EXTREMITIES: Upper extremities are grossly normal. LOWER EXTREMITIES: Grossly normal, no edema. NEURO EXAM: Awake and alert follows basic commands able to give name and birthday and states that she is in [facility], unsure as to the year cranial nerves II-XII grossly intact, normal speech, moves all 4 extremities. Past Med/Surg History Problem List (Updated 09/12/24 @ 12:44 by Charles Holcomb MD) Confusion (Acute) Dementia (Acute) Complicated urinary tract infection (Acute) Urinary tract infection Incomplete bladder emptying Recurrent UTI Stress incontinence (Acute) Urge incontinence (Acute) Complicated UTI (urinary tract infection) Pulmonary emboli Prediabetes Exposure to COVID-19 virus DVT prophylaxis Dyslipidemia Left hemiparesis Constipation Mixed urge and stress incontinence Depression Rheumatoid arthritis Stroke-like symptoms Chronic pain syndrome Hypothyroidism Asthma GERD (gastroesophageal reflux disease) Unspecified dementia, unspecified severity, without behavioral disturbance, psychotic disturbance, mood disturbance, and anxiety Medical History Rheumatoid arthritis Mixed urge and stress incontinence [facility] resident resident of [facility] Left hemiparesis Prediabetes Hx pulmonary embolism Major depressive disorder Aphasia Rhabdomyolysis hx Hx of Clostridium difficile infection Acute respiratory failure with hypoxia hx-per snf records Dysphagia Difficulty walking Hypothyroidism Atherosclerotic heart disease GERD (gastroesophageal reflux disease) Asthma HTN (hypertension) Weakness Chronic pain syndrome Low back pain Stroke CAD (coronary atherosclerotic disease) Cognitive communication deficit Surgical History Hx of left cataract extraction Family History Mother , in her mid 80s of diabetic complications Diabetes Father , in his mid 80s No problems noted. 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 [employer] Other Information That Helps Us Care for You: No Feels Safe at Home: Yes Safety Concerns: Feels Safe At This Time Assistive Devices: Denture - Lower, Glasses, Walker and Wheelchair Allergies Allergies Allergy/AdvReac Type Severity Reaction Status Date / Time ibuprofen Allergy Unknown ON [facility] Verified 09/11/24 16:43 CARE MED LIST propylthiouracil Allergy Unknown ON [facility] Verified 09/11/24 16:43 CARE MED LIST Home Meds Home Medications Medication Instructions Recorded Confirmed amlodipine 2.5 mg tablet 2.5 mg PO [facility] 11/17/23 09/11/24 aspirin 81 mg tablet,delayed 81 mg PO QAM 11/17/23 09/11/24 release clopidogrel 75 mg tablet 75 mg PO [facility] 11/17/23 09/11/24 docusate sodium 100 mg capsule 200 mg PO HS 11/17/23 09/11/24 duloxetine 60 mg capsule,delayed 1,200 mg PO HS 11/17/23 09/11/24 release folic acid 1 mg tablet 1 mg PO QAM 11/17/23 09/11/24 acetaminophen 650 mg rectal 650 mg KS Q6H PRN Fever 12/02/23 09/11/24 suppository calcium carbonate 1,000 mg PO Q6H PRN Indigestion 12/02/23 09/11/24 furosemide 20 mg tablet 20 mg PO QAM 03/23/24 09/11/24 hydrocodone 10 mg-acetaminophen 1 tab PO Q6H PRN Pain 5-10 03/23/24 09/11/24 325 mg tablet conjugated estrogens 0.625 mg 0.625 mg PO UD 07/10/24 09/11/24 tablet (Premarin) ipratropium 0.5 mg-albuterol 3 mg 3 ml inhalation Q2H PRN Shortness 07/10/24 09/11/24 (2.5 mg base)/3 mL nebulization Of Breath Or Wheezing soln methenamine hippurate 1 gram tablet 1 g PO AMHS 07/10/24 09/11/24 potassium chloride 10 mEq 10 meq PO BID 07/10/24 09/11/24 capsule,extended release acetaminophen 325 mg tablet 650 mg PO Q6 PRN UD 07/27/24 09/11/24 isosorbide mononitrate 60 mg 60 mg PO QAM 07/27/24 09/11/24 tablet,extended release 24 hr levothyroxine 150 mcg tablet 150 mcg PO QAM 07/27/24 09/11/24 melatonin 10 mg tablet 10 mg PO HS 07/27/24 09/11/24 promethazine 25 mg/mL injection 25 mg IM Q6 PRN nausea/vomiting 07/27/24 09/11/24 solution acetaminophen 500 mg tablet 500 mg PO TID 09/11/24 09/11/24 benzocaine 15 mg-menthol 2.6 mg 1 isabel PO .Q 1 HOUR PRN Cough 09/11/24 09/11/24 lozenges (Cepacol Sore Throat (benzocaine-menthol)) ceftriaxone 1 gram intravenous 1 g IV QAM 09/11/24 09/11/24 solution cyanocobalamin (vitamin B-12) 2,500 mcg PO QAM 09/11/24 09/11/24 2,500 mcg tablet lorazepam 0.5 mg tablet (Ativan) 0.5 mg PO Q12 PRN Anxiety 09/11/24 09/11/24 omega-3 fatty acids 1,000 mg 1,000 mg PO QAM 09/11/24 09/11/24 capsule propylene glycol 0.6 % eye drops 1 drp OPB BID 09/11/24 09/11/24 (Systane Balance) Previous Rx's Medication Instructions Recorded diclofenac sodium 1 % topical gel 2 - 4 g topical QID #100 grams 03/23/24 Results & Data (ED) Vital Signs Vital Signs - 24 hr 09/11/24 15:58 09/11/24 17:30 09/11/24 17:32 Temperature 37.0 C Temperature Source Oral Pulse Rate 82 Pulse Rate [Apical] 83 Respiratory Rate 20 20 Blood Pressure 155/99 H Blood Pressure [Left Arm] 167/85 H Blood Pressure Mean 117 Blood Pressure Mean [Left Arm] 112 Pulse Oximetry 94 96 96 Oxygen Delivery Method Room Air Room Air Room Air Sepsis Recent Fever Within 48 Hours No Sepsis New/Unexplained Change in Mental Status Yes Sepsis Action Taken by Nursing No Action Required 09/11/24 17:40 09/11/24 17:44 Temperature Temperature Source Pulse Rate 77 Pulse Rate [Apical] 87 Respiratory Rate 18 Blood Pressure Blood Pressure [Left Arm] 167/85 H Blood Pressure Mean Blood Pressure Mean [Left Arm] 112 Pulse Oximetry 99 Oxygen Delivery Method Room Air Sepsis Recent Fever Within 48 Hours Sepsis New/Unexplained Change in Mental Status Sepsis Action Taken by [facility] Medications Current Medication List: was personally reviewed by me Laboratory Data Attestation: I reviewed the patient's lab results. 09/11/24 16:20 09/11/24 16:20 Lab Results 09/11/24 09/11/24 Range/Units 16:20 16:30 WBC 12.69 H (4.8-10.8) K/ul RBC 4.14 L (4.20-5.40) M/uL Hgb 12.7 (12.0-16.0) g/dl Hct 37.8 (37.0-47.0) % MCV 91.3 (80.0-100.0) fL MCH 30.7 (25.0-34.0) pg MCHC 33.6 (32.0-36.0) g/dL RDW Std Deviation 43.3 (36.4-46.3) fL RDW Coeff of Julius 13.1 (11.5-14.5) % Plt Count 299 (130-400) K/uL MPV 9.5 (9.4-12.4) fL Immature Gran % (Auto) 0.3 % Neut % (Auto) 77.2 % Lymph % (Auto) 6.8 % [place] % (Auto) 4.6 % Eos % (Auto) 10.8 % Baso % (Auto) 0.3 % Neut # (Auto) 9.80 H (1.40-6.50) K/uL Lymph # (Auto) 0.86 L (1.20-3.40) K/uL [place] # (Auto) 0.58 (0.11-0.59) K/uL Eos # (Auto) 1.37 H (0.00-0.50) K/uL Baso # (Auto) 0.04 (0.00-0.20) K/uL Immature Gran # (Auto) 0.04 (0.01-0.20) K/uL Sodium 137 (136-145) mmol/L Potassium 3.7 (3.5-5.1) mmol/L Chloride 100 (98-107) mmol/L Carbon Dioxide 29 (21-32) mmol/L Anion Gap 8 (3-11) BUN 11 (6-23) mg/dl Creatinine 0.86 (0.6-1.2) mg/dl Est Cr Clr Drug Dosing 54.8 ml/min eGFR 69.10 BUN/Creatinine Ratio 12.8 (10-20) Glucose 85 (70-99(Fasting)) mg/dl Calcium 9.1 (8.6-10.3) mg/dl Magnesium 2.0 (1.7-2.4) mg/dl Total Bilirubin 0.3 (0.2-1.0) mg/dl Direct Bilirubin 0.1 (0-0.2) mg/dl AST 17 (13-39) U/L ALT 8 (7-52) U/L Alkaline Phosphatase 68 (34-104) U/L Troponin I High Sens 14.8 H (0-14) pg/ml Total Protein 6.6 (6.0-8.3) gm/dl Albumin 3.9 (3.4-5.0) gm/dl Procalcitonin 0.78 H (0-0.5) ng/ml Urine Color Yellow Urine Appearance Clear (Clear) Urine pH 5.5 (4.5-7.5) Ur Specific [place] 1.010 (1.000-1.030) Urine Protein Negative (Negative) Urine Glucose (UA) Negative (Negative) Urine Ketones Negative (Negative) Urine Blood Negative (Negative) Urine Nitrite Negative (Negative) Urine Bilirubin Negative (Negative) Urine Urobilinogen Negative (Negative) Ur Leukocyte Esterase Negative (Negative) Administered Medications Albuterol (Albut/Ipratrop 3mg/0.5mg Neb 3 Ml Vial) 3 ml INH Q2H PRN; Protocol PRN Reason: Shortness Of Breath Or Wheezing Stop: 10/11/24 21:57 Last Admin: 09/12/24 00:32 Dose: 3 ml Documented By: [facility] Amlodipine Besylate (Amlodipine Besylate 5 Mg Tab) 2.5 mg PO [facility] Stop: 10/12/24 08:59 Last Admin: 09/12/24 09:50 Dose: 2.5 mg Documented By: [facility] Aspirin (Aspirin 81 Mg Ectab) 81 mg PO [facility] Stop: 10/12/24 08:59 Last Admin: 09/12/24 09:50 Dose: 81 mg Documented By: LETA Clopidogrel Bisulfate (Clopidogrel Bisulfate 75 Mg Tab) 75 mg PO [facility] Stop: 10/12/24 08:59 Last Admin: 09/12/24 09:50 Dose: 75 mg Documented By: [facility] Diclofenac Sodium (Diclofenac Sod 1% Gel 100 Gm Tube) 2 gm EXT QID PRN; Protocol PRN Reason: pain Stop: 10/12/24 08:59 Last Admin: 09/11/24 23:29 Dose: 2 gm Documented By: ANNETTE Docusate Sodium (Docusate Sodium 100 Mg Cap) 200 mg PO [facility] Stop: 10/11/24 21:57 Last Admin: 09/11/24 23:22 Dose: 200 mg Documented By: ANNETTE Duloxetine HCl (Duloxetine Hcl 60 Mg Cap) 60 mg PO [facility] Stop: 10/11/24 21:57 Last Admin: 09/11/24 23:23 Dose: 60 mg Documented By: ANNETTE Enoxaparin Sodium (Enoxaparin Inj 40 Mg/0.4 Ml Syr) 40 mg SQ [facility] Stop: 10/12/24 08:59 Last Admin: 09/12/24 09:49 Dose: 40 mg Documented By: LETA Estrogens Conjugated (Premarin Vag Crm 14 Appln/30 Gm Tube) 1 appln PV TuT@2100 [facility] Stop: 10/11/24 22:44 Last Admin: 09/11/24 23:24 Dose: 1 appln Documented By: ANNETTE Furosemide (Furosemide 20 Mg Tab) [facility] Stop: 10/12/24 08:59 Last Admin: 09/12/24 09:49 Dose: 20 mg Documented By: LETA Meropenem 500 mg/ Syringe 10 mls @ 2 mls/min IV Q8H [facility]; Protocol Stop: 09/22/24 01:59 Last Admin: 09/12/24 09:52 Dose: 2 mls/min Documented By: Admin: 09/12/24 01:08 Dose: 2 mls/min Documented By: ANNETTE Isosorbide Mononitrate (Isosorbide [place] Extended Rel 60 Mg Tabcr) 60 mg [facility] Stop: 10/12/24 08:59 Last Admin: 09/12/24 09:49 Dose: 60 mg Documented By: ROSMERY Levothyroxine Sodium (Levothyroxine Sodium 150 Mcg Tablet) 150 mcg PO DAILYBB [facility] Stop: 10/12/24 06:29 Last Admin: 09/12/24 05:25 Dose: 150 mcg Documented By: ANNETTE Lorazepam (Lorazepam 0.5 Mg Tab) 0.5 mg PO Q12H PRN PRN Reason: Anxiety Stop: 10/11/24 21:57 Last Admin: 09/12/24 09:54 Dose: 0.5 mg Documented By: ROSMERY Melatonin (Melatonin 3 Mg Tab) 9 mg PO HS [facility] Stop: 10/11/24 21:57 Last Admin: 09/11/24 23:22 Dose: 9 mg Documented By: ANNETTE Methenamine Hippurate (Methenamine Hippurate 1 Gm Tab) 1 gm PO AMHS [facility] Stop: 09/21/24 21:57 Last Admin: 09/12/24 09:49 Dose: 1 gm Documented By: Admin: 09/11/24 23:25 Dose: 1 gm Documented By: ANNETTE Potassium Chloride (Potassium Chloride 10 Meq Tabcr) 10 meq PO BID [facility] Stop: 10/11/24 21:57 Last Admin: 09/12/24 09:53 Dose: 10 meq Documented By: Admin: 09/11/24 23:23 Dose: 10 meq Documented By: ANNETTE Discontinued Medications Acetaminophen (Acetaminophen 325 Mg Tab) 650 mg PO Q6H PRN PRN Reason: temp or pain Stop: 10/11/24 21:57 Last Admin: 09/11/24 22:11 Dose: 650 mg Documented By: ANNETTE Sodium Chloride (Nss) 1,000 mls @ 999 mls/hr IV .Q1H1M [facility] Stop: 09/11/24 17:30 Last Infusion: 09/11/24 20:00 Dose: Infused Documented By: Admin: 09/11/24 16:26 Dose: 999 mls/hr Documented By: HASMUKH Meropenem 500 mg/ Syringe 10 mls @ 2 mls/min IV NOW STA; Protocol Stop: 09/11/24 16:23 Last Admin: 09/11/24 17:11 Dose: 2 mls/min Documented By: CECILIA Influenza Virus Vacc Triv Types A&B (Influenza Vacc [id number](65y+)/Pf (Iiv3) 0.5ml Syr) 0.5 ml IM .ONCE ONE Stop: 09/12/24 08:01 Last Admin: 09/12/24 09:51 Dose: Not Given Documented By: ROSMERY Oxycodone HCl (Oxycodone Hcl Ir 5 Mg Tab (Immediate Release)) 5 mg PO NOW STA Stop: 09/12/24 00:32 Last Admin: 09/12/24 00:46 Dose: 5 mg Documented By: ANNETTE Pneumococcal 20-Valent Conj Vacc (Pneumococcal Vaccine (Pcv20) 20-Alka Conj-Dip Crm/Pf 0.5 Ml Syr) 0.5 ml IM .ONCE ONE Stop: 09/12/24 08:01 Last Admin: 09/12/24 09:51 Dose: Not Given Documented By: ROSMERY Imaging Data Radiologist's Impression: Chest X-Ray 09/11/24 16:18 XR chest 1V portable HISTORY: 78 years-old Female Sepsis acute sepsis COMPARISON: CT chest 12/05/2023 TECHNIQUE: AP view of the chest FINDINGS: Cardiac silhouette is enlarged. Pulmonary vascular congestion. Trace pleural effusions with mild bibasilar atelectasis. No pneumothorax. Stimulator leads overlie the mid thoracic spine. IMPRESSION: 1. Cardiomegaly with pulmonary vascular congestion. 2. Trace pleural effusions with mild bibasilar atelectasis. ACT 112: Negative or not required by law. The above report was generated using voice recognition software. It may contain grammatical, syntax or spelling errors. Electronically signed by: Oral Andrew M.D. 09/11/2024 4:[address] 09/11/24 16:19 CT head/brain wo con CLINICAL HISTORY: confusion Technique: Contiguous axial CT images of the head were acquired from the base of the skull to the vertex without intravenous contrast administration. Images were viewed in brain, subdural and bone windows. Automated dose lowering techniques and/or adjustment according to patient size were utilized for this exam. Comparison: Comparison is made to CTA head and neck 12/02/2023 Findings: Areas of decreased attenuation are present in the periventricular and subcortical white matter bilaterally consistent with small vessel ischemic disease. Generalized cerebral atrophy with commensurate enlargement of the ventricles, sulci, and cisterns is also present. There is no acute intracranial hemorrhage or evidence of acute territorial infarction. No shift of the midline structures, mass effect, or extra-axial abnormalities are shown. Atherosclerotic calcifications are present in the intracranial segments of the internal carotid arteries. Imaged portions of the paranasal sinuses and mastoid air cells are clear. The orbits appear normal. There are no acute fractures of the calvaria or scalp swelling. Impression: No acute intracranial hemorrhage, no evidence of acute territorial infarction or other acute intracranial disease process. ACT 112: Negative or not required by law. Electronically signed by: Adiel Cui M.D. 09/11/2024 4:58 PM Discharge Plan Visit Data Chief Complaint: Altered Mental Status Stated Complaint: AMS, UTI ED Provider: Charles Holcomb Discharge Problem: Complicated urinary tract infection, Dementia, Confusion Patient Disposition: Admitted As Inpatient Discharge Instructions Interventions: ED Discharge Assessment Last Done: 09/11/24 21:25 Discharge Problem: Dementia Qualifiers: Dementia type: unspecified type Dementia severity: unspecified severity
[2024-09-11] MEDS: SODIUM CHLORIDE 0.9% 1,000 ML IV SCH (16:26)
[2024-09-11 16:42] LABS: Basophils # (auto) 0.04 K/uL (0.00-0.20); Basophils % (auto) 0.3 %; Eosinophils # (auto) 1.37 K/uL (0.00-0.50); Eosinophils % (auto) 10.8 %; Hematocrit (blood only) 37.8 % (37.0-47.0); Hemoglobin 12.7 g/dl (12.0-16.0); Immature Granulocytes # (auto) 0.04 K/uL (0.01-0.20); Immature Granulocytes % (auto) 0.3 %; Lymphocytes # (auto) 0.86 K/uL (1.20-3.40); Lymphocytes % (auto) 6.8 %; Mean Corpuscular Hemoglobin 30.7 pg (25.0-34.0); Mean Corpuscular Hgb Conc 33.6 g/dL (32.0-36.0); Mean Corpuscular Volume 91.3 fL (80.0-100.0); Mean Platelet Volume 9.5 fL (9.4-12.4); Monocytes # (auto) 0.58 K/uL (0.11-0.59); Monocytes % (auto) 4.6 %; Neutrophils % (auto) 77.2 %; Platelet Count 299 K/uL (130-400); RDW Coefficient of Variation 13.1 % (11.5-14.5); RDW Standard Deviation 43.3 fL (36.4-46.3); Red Blood Count 4.14 M/uL (4.20-5.40); White Blood Count 12.69 K/ul (4.8-10.8)
[2024-09-11 16:45] LABS: Appearance Urine Clear (Clear); Bilirubin Urine Negative (Negative); Blood Urine Negative (Negative); Color Urine Yellow; Glucose Urine UA Negative (Negative); Ketones Urine Negative (Negative); Leukocyte Esterase Urine Negative (Negative); Nitrite Urine Negative (Negative); Protein Urine Negative (Negative); Urobilinogen Urine Negative (Negative); pH Urine 5.5 (4.5-7.5)
--- NOTE | 2024-09-11 16:57 | XRay Report ---
XR chest 1V portable HISTORY: 78 years-old Female Sepsis acute sepsis COMPARISON: CT chest 12/05/2023 TECHNIQUE: AP view of the chest FINDINGS: Cardiac silhouette is enlarged. Pulmonary vascular congestion. Trace pleural effusions with mild biba silar atelectasis. No pneumothorax. Stimulator leads overlie the mid thoracic spine. IMPRESSION: 1. Cardiomegaly with pulmonary vascular congestion. 2. Trace pleural effusions with mild bibasilar atelectasis. ACT 112: Negative or not required by law. The above report was generated using voice recognition software. It may contain grammatical, syntax o r spelling errors. Electronically signed by: Oral Andrew M.D. 09/11/2024 4:56 PM
[2024-09-11 16:59] LABS: Albumin Level 3.9 gm/dl (3.4-5.0); BUN Creatinine Ratio 12.8 (10-20); Bilirubin,Total 0.3 mg/dl (0.2-1.0); Calcium 9.1 mg/dl (8.6-10.3); Creatinine Clr Calc Pharmacy 54.8 ml/min; Potassium 3.7 mmol/L (3.5-5.1); Total Protein 6.6 gm/dl (6.0-8.3)
--- NOTE | 2024-09-11 16:59 | CT Scan Report ---
CT head/brain wo con CLINICAL HISTORY: confusion Technique: Contiguous axial CT images of the head were acquired from the base of the skull to the les carlos without intravenous contrast administration. Images were viewed in brain, subdural and bone [facility]. Automated dose lowering techniques and/or adjustment according to patient size were utilized for this exam. Comparison: Comparison is made to CTA head and neck 12/02/2023 Findings: Areas of decreased attenuation are present in the periventricular and subcortical white matter bilate rally consistent with small vessel ischemic disease. Generalized cerebral atrophy with commensurate e nlargement of the ventricles, sulci, and cisterns is also present. There is no acute intracranial hem orrhage or evidence of acute territorial infarction. No shift of the midline structures, mass effect, or extra-axial abnormalities are shown. Atherosclerotic calcifications are present in the intracran ial segments of the internal carotid arteries. Imaged portions of the paranasal sinuses and mastoid air cells are clear. The orbits appear normal. There are no acute fractures of the calvaria or scalp swelling. Impression: No acute intracranial hemorrhage, no evidence of acute territorial infarction or other acute intracra nial disease process. ACT 112: Negative or not required by law. Electronically signed by: Adiel Cui M.D. 09/11/2024 4:58 PM
[2024-09-11 17:03] LABS: Troponin I High Sensitivity 14.8 pg/ml (0-14)
[2024-09-11 17:09] LABS: Bilirubin Direct 0.1 mg/dl (0-0.2)
[2024-09-11] MEDS: MEROPENEM 500 MG in SYRINGE 0 ML IV STA (17:11)
--- NOTE | 2024-09-11 18:24 | History & Physical Report ---
Date of Service September 11, 2024 Assessment & Plan (1) Urinary tract infection: Plan: Patient with history of recurrent UTI and mixed urge/stress incontinence (failed medical management), presenting for confirmed UTI managed with Rocephin IV at [facility] and AMS. Follows with urology; most recent visit 06/25/2024 - Admit - Altered mental status suspect 2/2 UTI; does have (+) h/o dementia but has declined from baseline - CT head w/o acute findings - No renal/bladder US at this time - WBC 20.82-> 12.69 with L shift; Cr 0.86 - UA not showing signs of bacteria - Prior urine cx showing E. coli in addition to Pseudomonas (03/2024) - Pending urine culture - Pending blood cultures - Discontinue Rocephin - Est CrCl 54.8 - Continue meropenem 500mg q8hr IV Plan CAD w/ stents- ASA + Plavix Anxiety- Duloxetine, lorazepam HTN- Iso. Mononitrate, amlodipine Hypothyroidism- levothyroxine Asthma- Ipratropium-albut. for SOB/wheezing prn H/o bilateral PE- 11/2023; on Eliquis x 3 months but d/c since Dispo: Admit VTE prophylaxis: Lovenox SQ Code: DNR/DNI Admission and Anticipated Discharge Date Admission Date: 09/11/2024 History of Present Illness Chief Complaint: UTI, AMS Primary Care Provider: [facility] 78-year-old female presenting to ED via EMS from [facility] for altered mental status. Patient being treated for known UTI with IV Rocephin, however has had a change in her mental status and was complaining of right flank pain. ED course: 2 sets of lab testing were done (at 0400 and 1620 respectively); CBC- WBC 20.82- > 12.69, neutrophil 18.05-> 9.8; CMP grossly WNL; ALT 5-> 8, total protein 5.9-> 6.6; procalcitonin 0.78, lactate pending. UA not showing signs of infection; CXR- cardiomegaly with pulmonary vascular congestion, trace pleural effusions with mid bibasilar atelectasis; head CT- findings consistent with small vessel ischemic disease, generalized cerebral atrophy, no acute intracranial hemorrhage or infarction, atherosclerotic calcifications present in intracranial segments of internal carotid arteries. Provided with 1 L NSS and meropenem 500mgg in ED. Patient is a 78-year-old female with PMHx recurrent UTI (H/o Pseudomonas), mixed urge and stress incontinence, left hemiparesis s/p CVA, depression, RA, hypothyroidism, dementia, and asthma presenting for known UTI being treated with IV Rocephin, as well as altered mental status. Patient resides at [facility]. Reportedly started to have a change in mental status 1 to 2 days ago. Had already been started on antibiotics for known UTI at the time. Patient states that she is having right flank pain as well as lower abdominal discomfort, but does not experience dysuria or LUTS. States that the pain is a 6/10 at its maximum, but that she is not having any the time of visit. Does agree that her mental status is off from baseline. Otherwise denies chest pain, shortness of breath, palpitations, cough, fever/chills, additional abdominal pain, N/V/D/C, numbness or tingling, or weakness. Please see Dr. Leyva's attestation for adjustments/additions to treatment plan. Allergies Allergy/AdvReac Type Severity Reaction Status Date / Time ibuprofen Allergy Unknown ON CENTRE Verified 09/11/24 16:43 CARE MED LIST propylthiouracil Allergy Unknown ON CENTRE Verified 09/11/24 16:43 CARE MED LIST Home Medications Medication Instructions Recorded Confirmed Type amlodipine 2.5 mg tablet 2.5 mg PO QAM 11/17/23 09/11/24 History aspirin 81 mg tablet,delayed 81 mg PO QAM 11/17/23 09/11/24 History release clopidogrel 75 mg tablet 75 mg PO QAM 11/17/23 09/11/24 History docusate sodium 100 mg capsule 200 mg PO HS 11/17/23 09/11/24 History duloxetine 60 mg capsule,delayed 1,200 mg PO HS 11/17/23 09/11/24 History release folic acid 1 mg tablet 1 mg PO QAM 11/17/23 09/11/24 History acetaminophen 650 mg rectal 650 mg MN Q6H PRN Fever 12/02/23 09/11/24 History suppository calcium carbonate 1,000 mg PO Q6H PRN Indigestion 12/02/23 09/11/24 History diclofenac sodium 1 % topical gel 2 - 4 g topical QID #100 grams 03/23/24 09/11/24 Rx furosemide 20 mg tablet 20 mg PO QAM 03/23/24 09/11/24 History hydrocodone 10 mg-acetaminophen 1 tab PO Q6H PRN Pain 5-10 03/23/24 09/11/24 History 325 mg tablet conjugated estrogens 0.625 mg 0.625 mg PO UD 07/10/24 09/11/24 History tablet (Premarin) ipratropium 0.5 mg-albuterol 3 mg 3 ml inhalation Q2H PRN Shortness 07/10/24 09/11/24 History (2.5 mg base)/3 mL nebulization Of Breath Or Wheezing soln methenamine hippurate 1 gram tablet 1 g PO AMHS 07/10/24 09/11/24 History potassium chloride 10 mEq 10 meq PO BID 07/10/24 09/11/24 History capsule,extended release acetaminophen 325 mg tablet 650 mg PO Q6 PRN UD 07/27/24 09/11/24 History isosorbide mononitrate 60 mg 60 mg PO QAM 07/27/24 09/11/24 History tablet,extended release 24 hr levothyroxine 150 mcg tablet 150 mcg PO QAM 07/27/24 09/11/24 History melatonin 10 mg tablet 10 mg PO HS 07/27/24 09/11/24 History promethazine 25 mg/mL injection 25 mg IM Q6 PRN nausea/vomiting 07/27/24 09/11/24 History solution acetaminophen 500 mg tablet 500 mg PO TID 09/11/24 09/11/24 History benzocaine 15 mg-menthol 2.6 mg 1 isabel PO .Q 1 HOUR PRN Cough 09/11/24 09/11/24 History lozenges (Cepacol Sore Throat (benzocaine-menthol)) ceftriaxone 1 gram intravenous 1 g IV QAM 09/11/24 09/11/24 History solution cyanocobalamin (vitamin B-12) 2,500 mcg PO QAM 09/11/24 09/11/24 History 2,500 mcg tablet lorazepam 0.5 mg tablet (Ativan) 0.5 mg PO Q12 PRN Anxiety 09/11/24 09/11/24 History omega-3 fatty acids 1,000 mg 1,000 mg PO QAM 09/11/24 09/11/24 History capsule propylene glycol 0.6 % eye drops 1 drp OPB BID 09/11/24 09/11/24 History (Systane Balance) Past Med/Surg History Problem List (Updated 09/11/24 @ 18:17 by Tatyana Chadwick PA-C) Urinary tract infection Incomplete bladder emptying Recurrent UTI Stress incontinence (Acute) Urge incontinence (Acute) Complicated UTI (urinary tract infection) Pulmonary emboli Prediabetes Exposure to COVID-19 virus DVT prophylaxis Dyslipidemia Left hemiparesis Constipation Mixed urge and stress incontinence Depression Rheumatoid arthritis Stroke-like symptoms Chronic pain syndrome Hypothyroidism Asthma GERD (gastroesophageal reflux disease) Unspecified dementia, unspecified severity, without behavioral disturbance, psychotic disturbance, mood disturbance, and anxiety Medical History Rheumatoid arthritis Mixed urge and stress incontinence [facility] resident resident of [facility] Left hemiparesis Prediabetes Hx pulmonary embolism Major depressive disorder Aphasia Rhabdomyolysis hx Hx of Clostridium difficile infection Acute respiratory failure with hypoxia hx-per residential records Dysphagia Difficulty walking Hypothyroidism Atherosclerotic heart disease GERD (gastroesophageal reflux disease) Asthma HTN (hypertension) Weakness Chronic pain syndrome Low back pain Stroke CAD (coronary atherosclerotic disease) Cognitive communication deficit Surgical History Hx of left cataract extraction Family History Mother , in her mid 80s of diabetic complications Diabetes Father , in his mid 80s No problems noted. 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 Feels Safe at Home: Yes Assistive Devices: Walker and Wheelchair Review of Systems Review of Systems: All systems reviewed & are unremarkable except as noted in Subjective Physical Exam Physical Exam: General: No acute distress Skin: Warm and dry Head: Normocephalic, atraumatic Eyes: PERRL, sclera non-icteric ENT: External ear and ear canal without swelling; nose atraumatic; poor dentition, tongue normal appearance Neck: Supple, no LAD; no JVD Cardio: RRR, no M/G/R, S1 and S2 normal Resp: Chest wall symmetric, normal respiratory effort; No respiratory distress, Lungs CTA in all lobes bilaterally, no wheezes, rales, or rhonchi Abdomen: Soft, symmetric, slight tenderness to lower abdomen, nontender otherwise; no distention; No masses or hepatosplenomegaly; no CVA tenderness bilaterally MSK: Changes to bilateral hands consistent with RA, no additional deformities; sensation normal to UE/LE; Pulses palpable and equal; No edema Neuro: Awake, alert; unable to tell me the correct month or year, incorrectly identifies current president. Psych: Appropriate mood and affect Results & Data Results & Data Vital Signs (Past 12 Hours) Vital Signs Temp Pulse Pulse Resp BP BP Pulse Ox 09/11/24 17:44 77 09/11/24 17:40 87 18 167/85 H 99 09/11/24 17:32 96 09/11/24 15:58 37.0 C 82 20 155/99 H 94 O2 Del Method 09/11/24 17:44 09/11/24 17:40 Room Air 09/11/24 17:32 Room Air 09/11/24 15:58 Room Air Laboratory Results 09/11/24 17:00 Aerobic Blood Culture - Pending Blood Anaerobic Blood Culture - Pending 09/11/24 17:00 Aerobic Blood Culture - Pending Blood Anaerobic Blood Culture - Pending 09/11/24 09/11/24 16:30 16:20 WBC 12.69 H RBC 4.14 L Hgb 12.7 Hct 37.8 MCV 91.3 MCH 30.7 MCHC 33.6 RDW Std Deviation 43.3 RDW Coeff of Julius 13.1 Plt Count 299 MPV 9.5 Immature Gran % (Auto) 0.3 Neut % (Auto) 77.2 Lymph % (Auto) 6.8 [place] % (Auto) 4.6 Eos % (Auto) 10.8 Baso % (Auto) 0.3 Neut # (Auto) 9.80 H Lymph # (Auto) 0.86 L [place] # (Auto) 0.58 Eos # (Auto) 1.37 H Baso # (Auto) 0.04 Immature Gran # (Auto) 0.04 Sodium 137 Potassium 3.7 Chloride 100 Carbon Dioxide 29 Anion Gap 8 BUN 11 Creatinine 0.86 Est Cr Clr Drug Dosing 54.8 eGFR 69.10 BUN/Creatinine Ratio 12.8 Glucose 85 Calcium 9.1 Magnesium 2.0 Total Bilirubin 0.3 Direct Bilirubin 0.1 AST 17 ALT 8 Alkaline Phosphatase 68 Troponin I High Sens 14.8 H Total Protein 6.6 Albumin 3.9 Procalcitonin 0.78 H Urine Color Yellow Urine Appearance Clear Urine pH 5.5 Ur Specific [place] 1.010 Urine Protein Negative Urine Glucose (UA) Negative Urine Ketones Negative Urine Blood Negative Urine Nitrite Negative Urine Bilirubin Negative Urine Urobilinogen Negative Ur Leukocyte Esterase Negative Diagnostic Findings Chest X-Ray 09/11/24 16:18 XR chest 1V portable HISTORY: 78 years-old Female Sepsis acute sepsis COMPARISON: CT chest 12/05/2023 TECHNIQUE: AP view of the chest FINDINGS: Cardiac silhouette is enlarged. Pulmonary vascular congestion. Trace pleural effusions with mild bibasilar atelectasis. No pneumothorax. Stimulator leads overlie the mid thoracic spine. IMPRESSION: 1. Cardiomegaly with pulmonary vascular congestion. 2. Trace pleural effusions with mild bibasilar atelectasis. ACT 112: Negative or not required by law. The above report was generated using voice recognition software. It may contain grammatical, syntax or spelling errors. Electronically signed by: Oral Andrew M.D. 09/11/2024 4:[address] 09/11/24 16:19 CT head/brain wo con CLINICAL HISTORY: confusion Technique: Contiguous axial CT images of the head were acquired from the base of the skull to the vertex without intravenous contrast administration. Images were viewed in brain, subdural and bone windows. Automated dose lowering techniques and/or adjustment according to patient size were utilized for this exam. Comparison: Comparison is made to CTA head and neck 12/02/2023 Findings: Areas of decreased attenuation are present in the periventricular and subcortical white matter bilaterally consistent with small vessel ischemic disease. Generalized cerebral atrophy with commensurate enlargement of the ventricles, sulci, and cisterns is also present. There is no acute intracranial hemorrhage or evidence of acute territorial infarction. No shift of the midline structures, mass effect, or extra-axial abnormalities are shown. Atherosclerotic calcifications are present in the intracranial segments of the internal carotid arteries. Imaged portions of the paranasal sinuses and mastoid air cells are clear. The orbits appear normal. There are no acute fractures of the calvaria or scalp swelling. Impression: No acute intracranial hemorrhage, no evidence of acute territorial infarction or other acute intracranial disease process. ACT 112: Negative or not required by law. Electronically signed by: Adiel Cui M.D. 09/11/2024 4:58 PM Code Status & VTE Plan Code Status DNR/DNI VTE Prophylaxis Plan VTE Prophylaxis will be ordered: Yes Supervising Physician Co-Signing Physician Notes Patient seen and examined, chart reviewed, case discussed with Tatyana Chadwick PA-C and I agree with the assessment and plan as above except as otherwise noted Labs and images reviewed 70-year-old female with past medical history of advanced OA, RA, mild left hemiparesis following right basilar ganglia/thalamic stroke 2023, dementia/mild cognitive impairment suspected vascular etiology who presents for evaluation of altered mental status with right flank pain and under treatment for UTI. She has a leukocytosis. Procalcitonin is elevated. UA is not infected appearing. Patient has multiple prior urine cultures with the various pieces of E. coli in addition to Pseudomonas 04/13/2024. Patient was placed on meropenem on admission due to past cx results. UC is ordered and pending. There is no abdominal pain or guarding and no CVA tenderness to percussion w/ no MARCY; Renal/Bladder US deferred. Abd soft, NT. Agree w/ above. PG Care Time/CCT Total # of Minutes Spent Total Time Spent with Patient: Total time spent is greater than 50% in coordination of care (as documented) at patient's floor/unit and/or counseling patient: Coding Level of Care Code 78989 INT INP/OBS CARE 3/75MIN Diagnoses Urinary tract infection N39.0 Time Spent (min) 60
[2024-09-11] MEDS ORDERED: PROMETHAZINE HCL INJ 25 MG/ML 1 ML VIAL IM PRN (21:58)
[2024-09-11] MEDS ORDERED: POLYETHYLENE (MIRALAX) 17 GM PACK PO PRN (21:58)
[2024-09-11] MEDS ORDERED: ACETAMINOPHEN 650 MG SUPP PR PRN (21:58)
[2024-09-11] MEDS ORDERED: CALCIUM CARBONATE 500 MG CHEWABLE TAB PO PRN (22:01)
[2024-09-11] MEDS: ACETAMINOPHEN 325 MG TAB PO PRN (22:11)
[2024-09-11] MEDS: MELATONIN 3 MG TAB PO SCH (23:22)
[2024-09-11] MEDS: DOCUSATE SODIUM 100 MG CAP PO SCH (23:22)
[2024-09-11] MEDS: DULoxetine HCL 60 MG CAP PO SCH (23:23)
[2024-09-11] MEDS: POTASSIUM CHLORIDE 10 MEQ TABCR PO SCH (23:23)
[2024-09-11] MEDS: PREMARIN VAG CRM 14 APPLN/30 GM TUBE PV SCH (23:24)
[2024-09-11] MEDS: METHENAMINE HIPPURATE 1 GM TAB PO SCH (23:25)
[2024-09-11] MEDS: DICLOFENAC SOD 1% GEL 100 GM TUBE EXT PRN (23:29)
[2024-09-12] MEDS: ALBUT/IPRATROP 3MG/0.5MG NEB 3 ML VIAL INH PRN (00:32)
[2024-09-12] MEDS: oxyCODONE HCL IR 5 MG TAB (IMMEDIATE RELEASE) PO STA (00:46)
[2024-09-12] MEDS: MEROPENEM 500 MG in SYRINGE 0 ML IV SCH (01:08)
[2024-09-12] MEDS: LEVOTHYROXINE SODIUM 150 MCG TABLET PO SCH (05:25)
--- NOTE | 2024-09-12 08:31 | Hospitalist Progress Note ---
Date of Service September 12, 2024 Assessment & Plan (1) Urinary tract infection: Plan: Patient with history of recurrent UTI and mixed urge/stress incontinence (failed medical management), presenting for confirmed UTI managed with Rocephin IV at [facility] and AMS. Follows with urology; most recent visit 06/25/2024 -metabolic encephalopahty suspect 2/2 UTI poa - CT head w/o acute findings - leukocytosis with L shift poa; - Prior urine cx showing E. coli in addition to Pseudomonas (03/2024)- started meropenem 500mg q8hr IV. return to Ceftriaxone - urine culture < 1000 colonies - Pending blood cultures If infectious etiologies are ruled out may consider medication, did not seem markedly hypertensive on presentation - Plan CAD w/ stents- ASA + Plavix Anxiety- Duloxetine, lorazepam HTN- Iso. Mononitrate, amlodipine Hypothyroidism- levothyroxine Asthma- Ipratropium-albut. for SOB/wheezing prn H/o bilateral PE- 11/2023; on Eliquis x 3 months but d/c since VTE prophylaxis: Lovenox SQ Code: DNR/DNI Admission and Anticipated Discharge Date Admission Date: September 11, 2024 Subjective pt much improved than reported initial urine culture is negative Physical Exam Physical Exam: awake and oriented, weakened , will need PT eval lungs are diminished but clear Results & Data Results & Data Vital Signs (Past 12 Hours) Vital Signs Temp Pulse Pulse Resp BP BP Pulse Ox 09/12/24 07:37 98.2 F 68 16 178/96 H 93 09/12/24 00:35 70 18 90 09/11/24 22:47 09/11/24 22:47 99.1 F 81 18 174/81 H 92 09/11/24 21:00 73 24 157/109 H 93 O2 Del Method 09/12/24 07:37 Room Air 09/12/24 00:35 Room Air 09/11/24 22:47 Room Air 09/11/24 22:47 Room Air 09/11/24 21:00 Room Air PG Care Time/CCT Total # of Minutes Spent Total Time Spent with Patient: Total time spent is greater than 50% in coordination of care (as documented) at patient's floor/unit and/or counseling patient: Coding Level of Care Code 12487 SUB INP/OBS CARE 2/35MIN Diagnoses Urinary tract infection N39.0
[2024-09-12] MEDS: ENOXAPARIN INJ 40 MG/0.4 ML SYR SQ SCH (09:49)
[2024-09-12] MEDS: ISOSORBIDE MONO EXTENDED REL 60 MG TABCR PO SCH (09:49)
[2024-09-12] MEDS: FUROSEMIDE 20 MG TAB PO SCH (09:49)
[2024-09-12] MEDS: ASPIRIN 81 MG ECTAB PO SCH (09:50)
[2024-09-12] MEDS: CLOPIDOGREL BISULFATE 75 MG TAB PO SCH (09:50)
[2024-09-12] MEDS: amLODIPine BESYLATE 5 MG TAB PO SCH (09:50)
[2024-09-12] MEDS: PNEUMOCOCCAL VACCINE (PCV20) 20-VAL CONJ-DIP CRM/PF 0.5 ML SYR IM ONE (09:51)
[2024-09-12] MEDS: INFLUENZA VACC TS2024-25(65y+)/PF (IIV3) 0.5mL Syr IM ONE (09:51)
[2024-09-12] MEDS: LORazepam 0.5 MG TAB PO PRN (09:54)
--- NOTE | 2024-09-12 11:51 | Electrocardiogram Report ---
Test Reason : Blood Pressure : */* mmHG Vent. Rate : 80 BPM Atrial Rate : 80 BPM P-R Int : 220 ms QRS Dur : 134 ms QT Int : 416 ms P-R-T Axes : 11 -14 -28 degrees QTcB Int : 479 ms Sinus rhythm with 1st degree A-V block with Premature atrial complexes Right bundle branch block possible Inferior infarct (cited on or before 02-Dec-2023) Abnormal ECG When compared with ECG of 05-Dec-2023 09:15, Premature atrial complexes are now Present QRS axis Shifted right Confirmed by Herman Toledo ([id number]) on 09/12/2024 11:50:42 AM Referred By: REFERRED SELF Confirmed By: Herman Toledo
[2024-09-12] MEDS: cefTRIAXone SODIUM 2,000 MG/50 ML BAG IV SCH (16:49)
[2024-09-12] MEDS: ACETAMINOPHEN 325 MG TAB PO PRN (20:09)
--- NOTE | 2024-09-13 10:35 | Ultrasound Report ---
RENAL ULTRASOUND CLINICAL HISTORY: Right flank pain. COMPARISON STUDY: Renal ultrasound April 19, 2023. TECHNIQUE: Sonography of the kidneys and the urinary bladder was performed. FINDINGS: The right kidney measures 9.6 x 4.5 x 3.9 cm and the left kidney measures 9.4 x 4.3 x 4.1 c m. There is no hydronephrosis. No renal mass or calculus is identified. Renal echogenicity, size and cortical thickness are normal. Ureteral jets were not identified. Bladder is otherwise unremarkable. IMPRESSION: Unremarkable renal ultrasound. No hydronephrosis. ACT 112: Negative or not required by law. Electronically signed by: Hill Amezquita M.D. 09/13/2024 10:34 AM
--- NOTE | 2024-09-13 13:03 | Hospitalist Progress Note ---
Date of Service September 13, 2024 Assessment & Plan (1) Urinary tract infection: Plan: Patient with history of recurrent UTI and mixed urge/stress incontinence (failed medical management), presenting for confirmed UTI managed with Rocephin IV at [facility]. Follows with urology; most recent visit 06/25/2024 -metabolic encephalopahty suspect 2/2 UTI poa - CT head w/o acute findings - leukocytosis with L shift poa; - Prior urine cx showing E. coli in addition to Pseudomonas (03/2024)- started meropenem 500mg q8hr IV. return to Ceftriaxone - urine culture < 1000 colonies - Pending blood cultures If infectious etiologies are ruled out may consider medication, did not seem markedly hypertensive on presentation ammend some home medicines, consider return to snf tuesday - Plan CAD w/ stents- ASA + Plavix Anxiety- Duloxetine, lorazepam HTN- Iso. Mononitrate, amlodipine Hypothyroidism- levothyroxine Asthma- Ipratropium-albut. for SOB/wheezing prn H/o bilateral PE- 11/2023; on Eliquis x 3 months but d/c since Morbid obesity with BMI 41.2 VTE prophylaxis: Lovenox SQ Code: DNR/DNI Admission and Anticipated Discharge Date Admission Date: September 12, 2024 Subjective pt much improved than reported initial urine culture is negative Physical Exam Physical Exam: awake and oriented, weakened , will need PT eval lungs are diminished but clear Results & Data Results & Data Vital Signs (Past 12 Hours) Vital Signs Temp Pulse Resp BP Pulse Ox O2 Del Method 09/13/24 07:46 97.5 F L 75 16 149/100 H 94 Room Air 09/13/24 07:00 Room Air PG Care Time/CCT Total # of Minutes Spent Total Time Spent with Patient: Total time spent is greater than 50% in coordination of care (as documented) at patient's floor/unit and/or counseling patient: Coding Level of Care Code 48376 SUB INP/OBS CARE 2/35MIN Diagnoses Urinary tract infection N39.0
[2024-09-13] MEDS: lisinopril 5 MG TAB PO ONE (17:14)
[2024-09-13] MEDS: busPIRone 5 MG TAB PO SCH (20:00)
[2024-09-14] MEDS: LORazepam 0.5 MG TAB PO STA ×2 (03:59→20:16)
[2024-09-14 07:52] LABS: Creatinine Clr Calc Pharmacy 54.8 ml/min
[2024-09-14] MEDS: lisinopril 5 MG TAB PO SCH (08:24)
--- NOTE | 2024-09-14 20:32 | Hospitalist Progress Note ---
Date of Service September 14, 2024 Assessment & Plan (1) Urinary tract infection: Plan: 80 years old female with PMH of DNR/DNI @ [facility] ([place], [place]), mixed urge/stress incontinence (failed medical management), and recurrent UTIs, includin. Acute CAUTI with proctor-sensitive E. coli (01/26/2023, 12:15am urine culture). 2. Acute UTI with cipro-resistant, ampicillin-resistant, unasyn-resistant E. coli (11/29/2023, 4:03am). 3. Acute UTI with cipro-resistant, ampicillin-resistant, unasyn-resistant, cefazolin-resistant E. coli (03/14/2024, 1:09am). 4. Acute UTI with ceftazidime-resistant Pseudomonas aeruginosa (04/13/2024, ? time). 5. Acute UTI with cipro-resistant, ampicillin-resistant, unasyn-resistant E. coli (04/27/2024, 9:00pm). 6. Acute UTI with cipro-resistant, ampicillin-resistant, unasyn-resistant, cefazolin-resistant E. coli (05/17/2024, 2:44am). 7. Acute UTI with cipro-resistant, ampicillin-resistant, unasyn-resistant, cefazolin-resistant E. coli (07/07/2024, 1:3opm). Patient had been receiving ceftriaxone IV empirically @ [facility] ([place], [place]) prior to arrival at [facility] ER on 09/12/2024 with acute toxic metabolic encephalopathy, most probably due to recurrent, acute UTI. Patient was subsequently started on meropenem 500mg IV q8 (09/11/2024, 4:19pm), before transitioning back to ceftriaxone 2g IV daily (09/12/2024, 4:00pm), now off empiric antibiotics. Plan Other chronic--not acute--miscellaneous medical issues include: CAD w/ stents- ASA + Plavix Anxiety- Duloxetine, lorazepam HTN- Iso. Mononitrate, amlodipine Hypothyroidism- levothyroxine Asthma- Ipratropium-albut. for SOB/wheezing prn H/o bilateral PE- 11/2023; on Eliquis x 3 months but d/c since Morbid obesity with BMI 41.2 (height 4' 11"; weight 92.5 kg = 203.5 pounds). VTE prophylaxis: Lovenox SQ Code: DNR/DNI Admission and Anticipated Discharge Date Admission Date: September 12, 2024 Subjective "I feel weak. No energy to get up out of my bed today." Review of Systems Review of Systems: Negative for antecedent or coincident fevers, chills, sweats, cough, wheeze, sore throat, hemoptysis, chest pains, palpitations, pleurisy, nausea, vomiting, diarrhea, abdominal pain, pelvic pain, flank pain, back pain, shoulder pain, hematemesis, hematochezia, melena, hematuria, dysuria, frequency, urgency, headaches, dizziness, lightheadedness, visual changes, hearing changes, falls, sick contacts, trauma, travel history, or food/drug ingestions novel or new. All other review systems are reported as negative by the patient on 09/14/2024. Physical Exam Physical Exam: General: comfortable, coherent, cooperative. Wide awake and alert. Not confused, lethargic, or obtunded. Patient speaks in complete, fluent, and articulate sentences without pause, interruption, cough, or wheeze. HEENT: NC/AT. EOMI. PERRL. No nystagmus, gaze paresis, anisocoria, miosis, chemosis, mydriasis, hyphema, scleral injection, conjunctivitis, or pterygium. No otorrhea or rhinorrhea. No pharyngeal discharge or erythema. Neck: Supple, no stridor, bruit, goiter, JVD, or HJR. Chest: Symmetric rise and fall with respirations. Lungs: CTA/P. No audible expiratory wheeze, egophony, pectoriloquy, increase in tactile fremitus, or flatness/dullness to percussion at the bases. Heart: RRR, S1 and S2 noted. No S3 or S4 summation gallop. Grade II/ early systolic murmur @ LLSB, without radiation to the carotids, axilla, or back, and which remains invariant in regards to the respiratory cycle. Abdomen: Soft, NT, ND, no organomegaly. Bowel sounds auscultated in all 4 quadrants. Extremities: No clubbing, cyanosis, or edema. 2+ pedal pulses bilaterally. Skin: No decubitus ulcer, exanthem, or enanthem. Neurology: Alert and oriented in regards to person, place, time, or situation. 5/5 motor strength in all 4 extremities, both proximally and distally. Urology: No llanos catheter. Purewick with 100cc of clear urine. No urethral discharge. Results & Data Results & Data Vital Signs (Past 12 Hours) Vital Signs Temp Pulse Resp BP BP Pulse Ox O2 Del Method 09/14/24 17:00 36.7 C 70 16 168/88 H 93 Room Air 09/14/24 12:07 36.6 C 71 17 120/75 94 Room Air 09/14/24 10:28 Room Air Laboratory Results WBC 20.82, N87 L2 M4 E 7 (09/11/2024, 4:00am). WBC 12.69, N77 L7 M5 E11 (09/11/2024, 4:20am). Urine culture (09/11/2024, 4:30pm): < 1,000 cfu/mL Blood culture #1 (09/11/2024, 6:15pm): no growth to date Blood culture #1 (09/11/2024, 6:19pm): no growth to date PG Care Time/CCT Total # of Minutes Spent Total Time Spent with Patient: Total time spent is greater than 50% in coordination of care (as documented) at patient's floor/unit and/or counseling patient: Coding Level of Care Code 65173 SUB INP/OBS CARE 2/35MIN Diagnoses Urinary tract infection N39.0
[2024-09-14 21:43] LABS: Basophils % (auto) 0.9 %; Eosinophils % (auto) 8.8 %; Hematocrit (blood only) 41.3 % (37.0-47.0); Hemoglobin 14.2 g/dl (12.0-16.0); Immature Granulocytes # (auto) 0.07 K/uL (0.01-0.20); Immature Granulocytes % (auto) 0.6 %; Lymphocytes # (auto) 1.54 K/uL (1.20-3.40); Lymphocytes % (auto) 13.6 %; Mean Corpuscular Hemoglobin 31.2 pg (25.0-34.0); Mean Corpuscular Hgb Conc 34.4 g/dL (32.0-36.0); Mean Corpuscular Volume 90.8 fL (80.0-100.0); Mean Platelet Volume 9.5 fL (9.4-12.4); Monocytes # (auto) 1.06 K/uL (0.11-0.59); Monocytes % (auto) 9.3 %; Neutrophils # (auto) 7.58 K/uL (1.40-6.50); Neutrophils % (auto) 66.8 %; Platelet Count 346 K/uL (130-400); RDW Coefficient of Variation 13.3 % (11.5-14.5); RDW Standard Deviation 44.8 fL (36.4-46.3); Red Blood Count 4.55 M/uL (4.20-5.40); White Blood Count 11.35 K/ul (4.8-10.8)
--- NOTE | 2024-09-15 15:56 | Hospitalist Progress Note ---
Date of Service September 15, 2024 Assessment & Plan (1) Urinary tract infection: Plan: 80 years old female with PMH of DNR/DNI @ [facility] ([place], [place]), morbid obesity with BMI 41.2 (height 129.8 cm; weight 92.5 kg), HTN, CAD s/p stents, hypothyroidism, mild intermittent asthma, anxiety disorder, mixed urge/stress incontinence (failed medical management), and recurrent UTIs, includin. Acute CAUTI with proctor-sensitive E. coli (01/26/2023, 12:15am urine culture). 2. Acute UTI with cipro-resistant, ampicillin-resistant, unasyn-resistant E. coli (11/29/2023, 4:03am). 3. Acute UTI with cipro-resistant, ampicillin-resistant, unasyn-resistant, cefazolin-resistant E. coli (03/14/2024, 1:09am). 4. Acute UTI with ceftazidime-resistant Pseudomonas aeruginosa (04/13/2024, ? time). 5. Acute UTI with cipro-resistant, ampicillin-resistant, unasyn-resistant E. coli (04/27/2024, 9:00pm). 6. Acute UTI with cipro-resistant, ampicillin-resistant, unasyn-resistant, cefazolin-resistant E. coli (05/17/2024, 2:44am). 7. Acute UTI with cipro-resistant, ampicillin-resistant, unasyn-resistant, cefazolin-resistant E. coli (07/07/2024, 1:3opm). Patient had [facility] ([place], [place]) prior to arrival at [facility] ER on 09/12/2024 with acute toxic metabolic encephalopathy, most probably due to recurrent, acute UTI. Patient was subsequently started on meropenem 500mg IV q8 (09/11/2024, 4:19pm), before transitioning back to ceftriaxone 2g IV daily (09/12/2024, 4:00pm), now off empiric antibiotics. Await PT/OT Service evaluations on 09/15/2024 to determine if patient is safe for D/C back to [facility] ([place], [place]). Plan Other chronic--not acute--miscellaneous medical issues include: CAD w/ stents- ASA + Plavix Anxiety- Duloxetine, lorazepam HTN- Isorbide mononitrate, Amlodipine Hypothyroidism- Levothyroxine Asthma- Ipratropium-albut. for SOB/wheezing prn H/o bilateral PE- 11/2023; on Eliquis x 3 months but d/c since Morbid obesity with BMI 41.2 (height 4' 11"; weight 92.5 kg = 203.5 pounds). VTE prophylaxis: Lovenox SQ Code: DNR/DNI Admission and Anticipated Discharge Date Admission Date: September 16, 2024 Subjective "I feel stronger today. Not weak like yesterday." Review of Systems Review of Systems: Negative for antecedent or coincident fevers, chills, sweats, cough, wheeze, sore throat, hemoptysis, chest pains, palpitations, pleurisy, nausea, vomiting, diarrhea, abdominal pain, pelvic pain, flank pain, back pain, shoulder pain, hematemesis, hematochezia, melena, hematuria, dysuria, frequency, urgency, headaches, dizziness, lightheadedness, visual changes, hearing changes, falls, sick contacts, trauma, travel history, or food/drug ingestions novel or new. All other review systems are reported as negative by the patient on 09/15/2024. Physical Exam Physical Exam: General: comfortable, coherent, cooperative. Wide awake and alert. Not confused, lethargic, or obtunded. Patient speaks in complete, fluent, and articulate sentences without pause, interruption, cough, or wheeze. HEENT: NC/AT. EOMI. PERRL. No nystagmus, gaze paresis, anisocoria, miosis, chemosis, mydriasis, hyphema, scleral injection, conjunctivitis, or pterygium. No otorrhea or rhinorrhea. No pharyngeal discharge or erythema. Neck: Supple, no stridor, bruit, goiter, JVD, or HJR. Chest: Symmetric rise and fall with respirations. Lungs: CTA/P. No audible expiratory wheeze, egophony, pectoriloquy, increase in tactile fremitus, or flatness/dullness to percussion at the bases. Heart: RRR, S1 and S2 noted. No S3 or S4 summation gallop. Grade II/ early systolic murmur @ LLSB, without radiation to the carotids, axilla, or back, and which remains invariant in regards to the respiratory cycle. Abdomen: Soft, NT, ND, no organomegaly. Bowel sounds auscultated in all 4 quadrants. Extremities: No clubbing, cyanosis, or edema. 2+ pedal pulses bilaterally. Skin: No decubitus ulcer, exanthem, or enanthem. Neurology: Alert and oriented in regards to person, place, time, or situation. 5/5 motor strength in all 4 extremities, both proximally and distally. Urology: No llanos catheter. Purewick with 100cc of clear urine. No urethral discharge. Results & Data Results & Data Vital Signs (Past 12 Hours) Vital Signs Temp Pulse Resp BP Pulse Ox O2 Del Method 09/15/24 15:17 36.9 C 73 16 113/73 94 Room Air 09/15/24 08:00 36.6 C 66 17 154/77 H 94 Room Air Laboratory Results WBC 20.82, N87 L2 M4 E 7 (09/11/2024, 4:00am). WBC 12.69, N77 L7 M5 E11 (09/11/2024, 4:20am). Urine culture (09/11/2024, 4:30pm): < 1,000 cfu/mL Blood culture #1 (09/11/2024, 6:15pm): no growth to date Blood culture #1 (09/11/2024, 6:19pm): no growth to date PG Care Time/CCT Total # of Minutes Spent Total Time Spent with Patient: Total time spent is greater than 50% in coordination of care (as documented) at patient's floor/unit and/or counseling patient: Coding Level of Care Code 81759 SUB INP/OBS CARE 2/35MIN Diagnoses Urinary tract infection N39.0
[2024-09-16 09:35] LABS: Basophils # (auto) 0.07 K/uL (0.00-0.20); Basophils % (auto) 0.8 %; Eosinophils # (auto) 1.23 K/uL (0.00-0.50); Eosinophils % (auto) 13.4 %; Hemoglobin 14.6 g/dl (12.0-16.0); Immature Granulocytes # (auto) 0.05 K/uL (0.01-0.20); Immature Granulocytes % (auto) 0.5 %; Lymphocytes # (auto) 0.94 K/uL (1.20-3.40); Lymphocytes % (auto) 10.2 %; Mean Corpuscular Hemoglobin 30.4 pg (25.0-34.0); Mean Corpuscular Hgb Conc 32.4 g/dL (32.0-36.0); Mean Corpuscular Volume 93.8 fL (80.0-100.0); Mean Platelet Volume 9.4 fL (9.4-12.4); Monocytes # (auto) 0.59 K/uL (0.11-0.59); Monocytes % (auto) 6.4 %; Neutrophils # (auto) 6.32 K/uL (1.40-6.50); Neutrophils % (auto) 68.7 %; Platelet Count 302 K/uL (130-400); RDW Coefficient of Variation 13.5 % (11.5-14.5); RDW Standard Deviation 46.4 fL (36.4-46.3)
[2024-09-16 09:52] LABS: BUN Creatinine Ratio 15.7 (10-20); Calcium 9.5 mg/dl (8.6-10.3); Creatinine Clr Calc Pharmacy 51.7 ml/min; Potassium 4.2 mmol/L (3.5-5.1)
[2024-09-16] MEDS: ACETAMINOPHEN 1,000 MG/100 ML VIAL IV STA (13:50)
--- NOTE | 2024-09-16 20:11 | Hospitalist Progress Note ---
Date of Service September 16, 2024 Assessment & Plan (1) Urinary tract infection: Plan: 80 years old female with PMH of DNR/DNI @ [facility] ([place], [place]), morbid obesity with BMI 41.2 (height 129.8 cm; weight 92.5 kg), HTN, CAD s/p stents, hypothyroidism, mild intermittent asthma, anxiety disorder, mixed urge/stress incontinence (failed medical management), and recurrent UTIs, includin. Acute CAUTI with proctor-sensitive E. coli (01/26/2023, 12:15am urine culture). 2. Acute UTI with cipro-resistant, ampicillin-resistant, unasyn-resistant E. coli (11/29/2023, 4:03am). 3. Acute UTI with cipro-resistant, ampicillin-resistant, unasyn-resistant, cefazolin-resistant E. coli (03/14/2024, 1:09am). 4. Acute UTI with ceftazidime-resistant Pseudomonas aeruginosa (04/13/2024, ? time). 5. Acute UTI with cipro-resistant, ampicillin-resistant, unasyn-resistant E. coli (04/27/2024, 9:00pm). 6. Acute UTI with cipro-resistant, ampicillin-resistant, unasyn-resistant, cefazolin-resistant E. coli (05/17/2024, 2:44am). 7. Acute UTI with cipro-resistant, ampicillin-resistant, unasyn-resistant, cefazolin-resistant E. coli (07/07/2024, 1:3opm). Patient had [facility] receiving [facility] ([place], [place]) prior to arrival at [facility] ER on 09/12/2024 with acute toxic metabolic encephalopathy, most probably due to recurrent, acute UTI. Patient was subsequently started on meropenem 500mg IV q8 (09/11/2024, 4:19pm), before transitioning back to ceftriaxone 2g IV daily (09/12/2024, 4:00pm), now off empiric antibiotics. Await PT/OT Service evaluations on 09/17/2024 to determine if patient is safe for D/C back to [facility] ([place], [place]). (2) Acute hyponatremia: Plan: cf., Na 137 mmol/L, BUN/ebd teacher 10/0.83 (09/11/2024, 4:00am). cf., Na 137 mmol/L, BUN/ebd teacher 11/0.86 (09/11/2024, 4:20pm) cf., Na 134 mmol/L, BUN/ebd teacher 14/0.89 (09/16/2024, 9:16am). cf., baseline Na range, 137-141 mmol/L (12/23/2022 - 08/30/2024). Etiology of acute hyponatremia is probably due to acute dehydration, and hence, I have opted to rehydrate patient with 1 liter of 0.9% NS @ 93 mL/hr (09/16/2024, 8:00pm), based on a delivery rate of 1 mL of 0.9% NS per kg of body weight per hour, and a body weight of 92.5 kg. I will check repeat Na level in the 09/17/2024 am. I surmise that patient's acute hypovolemic hyponatremia is probably contributory to patient's LLE weakness on 09/16/2024, of unclear onset and unclear duration. (3) Lactic acid blood increased: Plan: cf., Lactic acid #1 0.9 mmol/L (09/11/2024, 6:19pm). cf., Lactic acid #2 2.4 mmol/L (09/16/2024, 9:21am). Etiology of acute lactic acid elevation is probably due to acute dehydration, and hence, I have opted to rehydrate patient with 1 liter of 0.9% NS @ 93 mL/hr (09/16/2024, 8:00pm), based on a delivery rate of 1 mL of 0.9% NS per kg of body weight per hour, and a body weight of 92.5 kg. I will check repeat lactic acid level in the 09/17/2024 am. Plan Other chronic--not acute--miscellaneous medical issues include: CAD w/ stents- ASA + Plavix Anxiety- Duloxetine, lorazepam HTN- Isorbide mononitrate, Amlodipine Hypothyroidism- Levothyroxine Asthma- Ipratropium-albut. for SOB/wheezing prn H/o bilateral PE- 11/2023; on Eliquis x 3 months but d/c since Morbid obesity with BMI 41.2 (height 4' 11"; weight 92.5 kg = 203.5 pounds). VTE prophylaxis: Lovenox SQ Code: DNR/DNI Admission and Anticipated Discharge Date Admission Date: September 12, 2024 Subjective "My left leg feels weak, but I can't say if that is new or old. I have been in a wheelchair for 2 years, you know?" Review of Systems Review of Systems: Positive for LLE weakness, of unclear onset and unclear duration. Negative for antecedent or coincident fevers, chills, sweats, cough, wheeze, sore throat, hemoptysis, chest pains, palpitations, pleurisy, nausea, vomiting, diarrhea, abdominal pain, pelvic pain, flank pain, back pain, shoulder pain, hematemesis, hematochezia, melena, hematuria, dysuria, frequency, urgency, headaches, dizziness, lightheadedness, visual changes, hearing changes, falls, sick contacts, trauma, travel history, or food/drug ingestions novel or new. All other review systems are reported as negative by the patient on 09/16/2024. Physical Exam Physical Exam: General: comfortable, coherent, cooperative. Wide awake and alert. Not confused, lethargic, or obtunded. Patient speaks in complete, fluent, and articulate sentences without pause, interruption, cough, or wheeze. HEENT: NC/AT. EOMI. PERRL. No nystagmus, gaze paresis, anisocoria, miosis, chemosis, mydriasis, hyphema, scleral injection, conjunctivitis, or pterygium. No otorrhea or rhinorrhea. No pharyngeal discharge or erythema. Neck: Supple, no stridor, bruit, goiter, JVD, or HJR. Chest: Symmetric rise and fall with respirations. Lungs: CTA/P. No audible expiratory wheeze, egophony, pectoriloquy, increase in tactile fremitus, or flatness/dullness to percussion at the bases. Heart: RRR, S1 and S2 noted. No S3 or S4 summation gallop. Grade II/ early systolic murmur @ LLSB, without radiation to the carotids, axilla, or back, and which remains invariant in regards to the respiratory cycle. Abdomen: Soft, NT, ND, no organomegaly. Bowel sounds auscultated in all 4 quadrants. Extremities: No clubbing, cyanosis, or edema. 2+ pedal pulses bilaterally. Skin: No decubitus ulcer, exanthem, or enanthem. Neurology: Alert and oriented in regards to person, place, time, or situation. 5/5 motor strength in LUE, RUE, RLE, both proximally and distally. 3/5 motor strength in LLE, both proximally and distally on 09/16/2024. Urology: No llanos catheter. Purewick with 100cc of clear urine. No urethral discharge. Results & Data Results & Data Vital Signs (Past 12 Hours) Vital Signs Temp Pulse Resp BP Pulse Ox O2 Del Method 09/16/24 14:36 36.6 C 63 16 118/68 95 Room Air Laboratory Results WBC 20.82, N87 L 2 M4 E 7 (09/11/2024, 4:00am). WBC 12.69, N77 L 7 M5 E11 (09/11/2024, 4:20am). WBC 11.35, N67 L14 M9 E 9 (09/14/2024, 8:48pm). WBC 9.20, N69 L10 M6 E13 (09/16/2024, 9:16am). Na 137, BUN/ebd teacher 10/0.83 (09/11/2024, 4:00am). Na 137, BUN/ebd teacher 11/0.86 (09/11/2024, 4:20pm) Na 134 , BUN/ebd teacher 14/0.89 (09/16/2024, 9:16am). Lactic acid #1 0.9 mmol/L (09/11/2024, 6:19pm). Lactic acid #2 2.4 mmol/L (09/16/2024, 9:21am). Procalcitonin #1 0.78 ng/mL (09/11/2024, 4:20pm). Procalcitonin #2 0.04 ng/mL (09/16/2024, 9:16am). Urine culture (09/11/2024, 4:30pm): < 1,000 cfu/mL Blood culture #1 (09/11/2024, 6:15pm): no growth to date Blood culture #1 (09/11/2024, 6:19pm): no growth to date Diagnostic Findings CT brain without contrast (09/16/2024, 1:26pm): PG Care Time/CCT Total # of Minutes Spent Total Time Spent with Patient: Total time spent is greater than 50% in coordination of care (as documented) at patient's floor/unit and/or counseling patient: Coding Level of Care Code 49461 SUB INP/OBS CARE 3/50MIN Diagnoses Urinary tract infection N39.0 Acute hyponatremia E87.1 Lactic acid blood increased R79.89
[2024-09-16] MEDS: SODIUM CHLORIDE 0.9% 500 ML IV ONE (20:22)
[2024-09-16] MEDS: LORazepam 0.5 MG TAB PO PRN (20:23)
[2024-09-16 21:09] VITALS: TEMP 98.2
--- NOTE | 2024-09-16 21:28 | CT Scan Report ---
EXAMINATION: Head CT without CLINICAL HISTORY: Left lower extremity weakness PRIORS: 09/11/2024, 12/02/2023 TECHNIQUE: Contiguous axial images were obtained through the head without the use of intravenous contrast. Sagittal and coronal reformations are supplied. FINDINGS: Appropriate parenchymal volume is noted. Harvey-white differentiation is preserved. No edema or midline shift. Scattered periventricular lucency noted suggesting small vessel occlusive disease, unchanged. No intra-axial or extra-axial hemorrhage. Ventricles are normal in size and configuration. Brainstem and cerebellum have a normal appearance. Calvarium unremarkable. Paranasal sinuses and mastoid air cells are well-pneumatized. Globes are intact. No retrobulbar abnormality. IMPRESSION: No CT evidence of an acute intracranial abnormality. Electronically signed by Stephania Santana 09-16-2024 6:02 PM
[2024-09-17 07:14] LABS: BUN Creatinine Ratio 11.5 (10-20); Calcium 9.3 mg/dl (8.6-10.3); Creatinine Clr Calc Pharmacy 52.9 ml/min; Potassium 4.3 mmol/L (3.5-5.1)
[2024-09-17 07:18] VITALS: RESP 16; O2SAT 94
--- NOTE | 2024-09-17 08:06 | Hospitalist Progress Note ---
Date of Service September 17, 2024 Assessment & Plan (1) Urinary tract infection: Plan: Patient with history of recurrent UTI and mixed urge/stress incontinence (failed medical management), presenting for confirmed UTI managed with Rocephin IV at [facility]. Follows with urology; most recent visit 06/25/2024 -metabolic encephalopathy suspect 2/2 UTI poa - CT head w/o acute findings - leukocytosis with L shift poa; - Prior urine cx showing E. coli in addition to Pseudomonas (03/2024)- started meropenem 500mg q8hr IV. return to Ceftriaxone completed course - urine culture < 1000 colonies - Negative blood cultures - Plan CAD w/ stents- ASA + Plavix Anxiety- Duloxetine, lorazepam HTN- Iso. Mononitrate, amlodipine Hypothyroidism- levothyroxine Asthma- Ipratropium-albut. for SOB/wheezing prn H/o bilateral PE- 11/2023; on Eliquis x 3 months but d/c since Morbid obesity with BMI 41.2 VTE prophylaxis: Lovenox SQ Code: DNR/DNI Admission and Anticipated Discharge Date Admission Date: September 12, 2024 Results & Data Results & Data Vital Signs (Past 12 Hours) Vital Signs Temp Pulse Resp BP BP Pulse Ox O2 Del Method 09/17/24 07:16 98.2 F 67 16 133/65 94 Room Air 09/16/24 21:08 98.2 F 65 20 122/77 93 Room Air 09/16/24 20:15 Room Air PG Care Time/CCT Total # of Minutes Spent Total Time Spent with Patient: Total time spent is greater than 50% in coordination of care (as documented) at patient's floor/unit and/or counseling patient: Coding Diagnoses Urinary tract infection N39.0
[2024-09-17 11:16] VITALS: BP 122/77; PULSE 73
--- NOTE | 2024-09-17 13:28 | Discharge Summary ---
Discharge Summary Date of Service September 17, 2024 Principal Dx & Hospital Course #1 = Principal Diagnosis (1) Urinary tract infection: Patient with history of recurrent UTI and mixed urge/stress incontinence (failed medical management), presenting for confirmed UTI managed with Ro[facility] IV at [facility]. Follows with urology; most recent visit 06/25/2024 -metabolic encephalopathy suspect 2/2 UTI poa - CT head w/o acute findings - leukocytosis with L shift poa; - Prior urine cx showing E. coli in addition to Pseudomonas (03/2024)- started meropenem 500mg q8hr IV. return to Ceftriaxone completed course - urine culture < 1000 colonies - Negative blood cultures Given some medications on her outpatient med list are with some side effects which could be listed as encephalopathy we have made some amendments transitioning Ativan to BuSpar stopping the hydrocodone keeping her duloxetine at 60 and controlling blood pressure by addition of lisinopril - Plan CAD w/ stents- ASA + Plavix Anxiety- Duloxetine, lorazepam HTN- Iso. Mononitrate, amlodipine- added lisinopril Hypothyroidism- levothyroxine Asthma- Ipratropium-albut. for SOB/wheezing prn H/o bilateral PE- 11/2023; on Eliquis x 3 months but d/c since Morbid obesity with BMI 41.2 Code: DNR/DNI Admission HPI Per Admitting Provider 78-year-old female presenting to ED via EMS from [facility] for altered mental status. Patient being treated for known UTI with IV Rocephin, however has had a change in her mental status and was complaining of right flank pain. ED course: 2 sets of lab testing were done (at 0400 and 1620 respectively); CBC- WBC 20.82- > 12.69, neutrophil 18.05-> 9.8; CMP grossly WNL; ALT 5-> 8, total protein 5.9-> 6.6; procalcitonin 0.78, lactate pending. UA not showing signs of infection; CXR- cardiomegaly with pulmonary vascular congestion, trace pleural effusions with mid bibasilar atelectasis; head CT- findings consistent with small vessel ischemic disease, generalized cerebral atrophy, no acute intracranial hemorrhage or infarction, atherosclerotic calcifications present in intracranial segments of internal carotid arteries. Provided with 1 L NSS and meropenem 500mgg in ED. Patient is a 78-year-old female with PMHx recurrent UTI (H/o Pseudomonas), mixed urge and stress incontinence, left hemiparesis s/p CVA, depression, RA, hypothyroidism, dementia, and asthma presenting for known UTI being treated with IV Rocephin, as well as altered mental status. Patient resides at [facility]. Reportedly started to have a change in mental status 1 to 2 days ago. Had already been started on antibiotics for known UTI at the time. Patient states that she is having right flank pain as well as lower abdominal discomfort, but does not experience dysuria or LUTS. States that the pain is a 6/10 at its maximum, but that she is not having any the time of visit. Does agree that her mental status is off from baseline. Otherwise denies chest pain, shortness of breath, palpitations, cough, fever/chills, additional abdominal pain, N/V/D/C, numbness or tingling, or weakness. Please see Dr. Leyva's attestation for adjustments/additions to treatment plan. Discharge Exam pt is slightly confused but overall seems at baseline no focal distress, cardiac is regular lungs are clear Discharge Plan Discharge Items Patient Disposition: Transfer Care Home Fac Reason For Visit: UTI, AMS Discharge Diagnosis: confusion- encephalopathy possible uti poa Activity: Resume your previous activity Non-emergency contact: Primary Care Provider Call non-emergency contact if: your symptoms worsen Follow-up/Referrals: [facility] [Primary Care Provider] - Diet: Regular Addtl Attending Provider Instructions: although concern for uti was on presentation cultures here did not confirm we have adjusted some medications in case there is concern for toxic affects, recommend re add them cautiously Pending Studies at Discharge: No Stand-Alone Forms: My [facility] Skilled Items Patient informed of condition?: Yes DNR: Yes Discharge Level of Care: Other Communicable Disease: No Discharge Prognosis: Stable Lines: None Urinary Catheter: No Medications and DC Order Prescriptions: New buspirone 5 mg Tablet 5 mg PO BID Qty: 60 0RF lisinopril [Zestril] 5 mg Tablet 5 mg PO QAM Qty: 30 0RF duloxetine 60 mg Capsule,Delayed Release(Dr/Ec) 60 mg PO HS Qty: 60 0RF Continued diclofenac sodium 1 % gel 2 - 4 g TOPICAL QID Qty: 100 0RF Rx Instructions: 2 grams to hand/wrists and 4 grams to knees acetaminophen 650 mg Suppository 650 mg AR Q6H MDD 3G PRN (Reason: Fever) calcium carbonate 500 mg calcium (1,250 mg) Tablet,Chewable 1,000 mg PO Q6H PRN (Reason: Indigestion) amlodipine 2.5 mg tablet 2.5 mg PO QAM clopidogrel 75 mg tablet 75 mg PO QAM aspirin 81 mg Tablet,Delayed Release (Dr/Ec) 81 mg PO QAM docusate sodium 100 mg Capsule 200 mg PO HS folic acid 1 mg tablet 1 mg PO QAM potassium chloride 10 mEq Capsule, Extended Release 10 meq PO BID ipratropium-albuterol 0.5 mg-3 mg(2.5 mg base)/3 mL Solution For Nebulization 3 ml INHALATION Q2H PRN (Reason: Shortness Of Breath Or Wheezing) methenamine hippurate 1 gram Tablet 1 g PO AMHS Premarin 0.625 mg Tablet 0.625 mg PO UD Rx Instructions: at bedtime, every and . acetaminophen 325 mg Tablet 650 mg PO Q6 MDD 3G PRN (Reason: UD) Rx Instructions: for temp >100; for pain 1-4. isosorbide mononitrate 60 mg tablet extended release 24 hr 60 mg PO QAM levothyroxine 150 mcg tablet 150 mcg PO QAM melatonin 10 mg Tablet 10 mg PO HS cyanocobalamin (vitamin B-12) 2,500 mcg Tablet 2,500 mcg PO QAM omega-3 fatty acids 1,000 mg Capsule 1,000 mg PO QAM Systane Balance 0.6 % Drops 1 drp OPB BID ceftriaxone 1 gram Recon Soln 1 g IV QAM Rx Instructions: MIX WITH 2.1ML LIDOCAINE START 09/09/24 CRUZITO FOR 7 DAYS Discontinued furosemide 20 mg tablet 20 mg PO QAM hydrocodone-acetaminophen 10-325 mg tablet 1 tab PO Q6H MDD 3G APAP/24 HR PRN (Reason: Pain 5-10) duloxetine 60 mg capsule,delayed release(DR/EC) 1,200 mg PO HS Rx Instructions: 2 TABLET DOSE promethazine 25 mg/mL solution 25 mg IM Q6 PRN (Reason: nausea/vomiting) acetaminophen 500 mg tablet 500 mg PO TID MDD 3G /24 HOURS Cepacol Sore Throat (laura-men) 15-2.6 mg Lozenge 1 isabel PO .Q 1 HOUR PRN (Reason: Cough) Rx Instructions: START 09/11/24 TAKE FOR 14 DAYS lorazepam [Ativan] 0.5 mg Tablet 0.5 mg PO Q12 PRN (Reason: Anxiety) Rx Instructions: START 09/10/24 TAKE FOR 14 DAYS Discharge Orders: Discharge Order (Routine); Ordered 09/17/24 Ordered By: Jalen Moreno Admission Data Admit Date/Time: 09/12/24 17:20 Attending Provider: Jalen Moreno Admit Provider: Cale Leyva Primary Care Provider: [facility] Other Providers: Cale Leyva; [facility] Other Interventions: Discharge Summary Assessment (RN) Last Done: 09/17/24 11:11 Hospital Stay Data Consultations 09/11/24 17:22 ED Decision to Admit Stat Diagnostic Imagining Performed 09/11/24 16:19 CT head/brain wo con Stat 09/13/24 07:41 US renal/blad retro comp Routine 09/16/24 13:26 CT Brain [CT head/brain wo con] Stat Pending Results Patient Have Any Pending Studies at Discharge: No Discharge Instructions Given to Patient (Per Discharging Provider) although concern for uti was on presentation cultures here did not confirm we have adjusted some medications in case there is concern for toxic affects, recommend re add them cautiously Total Time Total Time Spent Total Time Spent (In Minutes): It required greater than 30 minutes to prepare this patient for discharge. Coding Level of Care Code 39423 INP/OBS DISCH >30 MIN Diagnoses Urinary tract infection N39.0
== END 2024-09-17 14:23 | DRG 689 ==
LOC: EDINP 15:59 → ED 15:59 → SUATTDRO 18:01 → 3N 21:25 → SUATTDRO 09-12 17:20

== ENCOUNTER 2025-02-22 12:04 | Observation (INO) ==
--- NOTE | 2025-02-22 12:46 | XRay Report ---
XR chest 1V portable CLINICAL HISTORY: weakness COMPARISON STUDY: 09/11/2024 FINDINGS: Stable thoracic neurostimulator. Stable cardiomegaly without pulmonary vascular congestion. Inspiration is shallow. There is stable mild stranding opacity in the lung bases. No new consolidati on or pleural effusion. No pneumothorax. IMPRESSION: Stable exam. ACT 112: Negative or not required by law. Electronically signed by: Juan F Dhillon M.D. 02/22/2025 12:44 PM
[2025-02-22 13:37] LABS: Basophils # (auto) 0.07 K/uL (0.00-0.20); Basophils % (auto) 0.6 %; Eosinophils # (auto) 0.59 K/uL (0.00-0.50); Eosinophils % (auto) 4.9 %; Hematocrit (blood only) 42.2 % (37.0-47.0); Hemoglobin 13.8 g/dl (12.0-16.0); Immature Granulocytes # (auto) 0.06 K/uL (0.01-0.20); Immature Granulocytes % (auto) 0.5 %; Lymphocytes # (auto) 1.22 K/uL (1.20-3.40); Lymphocytes % (auto) 10.1 %; Mean Corpuscular Hemoglobin 29.5 pg (25.0-34.0); Mean Corpuscular Hgb Conc 32.7 g/dL (32.0-36.0); Mean Corpuscular Volume 90.2 fL (80.0-100.0); Mean Platelet Volume 9.6 fL (9.4-12.4); Monocytes # (auto) 1.09 K/uL (0.11-0.59); Neutrophils % (auto) 74.9 %; Platelet Count 298 K/uL (130-400); RDW Coefficient of Variation 14.5 % (11.5-14.5); RDW Standard Deviation 47.7 fL (36.4-46.3); Red Blood Count 4.68 M/uL (4.20-5.40); White Blood Count 12.13 K/ul (4.8-10.8)
[2025-02-22 13:57] LABS: Albumin Globulin Ratio 1.6 (0.9-2); Albumin Level 4.2 gm/dl (3.4-5.0); BUN Creatinine Ratio 18.3 (10-20); Bilirubin,Total 0.6 mg/dl (0.2-1.0); Calcium 8.9 mg/dl (8.6-10.3); Creatinine Clr Calc Pharmacy 42.5 ml/min; Globulin 2.6 gm/dl (2.5-4.0); Potassium 4.2 mmol/L (3.5-5.1); Total Protein 6.8 gm/dl (6.0-8.3)
[2025-02-22 14:01] LABS: Troponin I High Sensitivity 5.7 pg/ml (0-14)
[2025-02-22 14:10] LABS: Thyroid Stimulating Hormone 2.056 uIu/ml (0.300-4.500)
[2025-02-22 14:36] LABS: Adenovirus PCR Not Detected (NotDetected); Bordetella parapertussis PCR Not Detected (NotDetected); Bordetella pertussis PCR Not Detected (NotDetected); Chlamydia pneumoniae PCR Not Detected (NotDetected); Coronavirus 229E PCR Not Detected (NotDetected); Coronavirus CoV-2 (COVID19)PCR Not Detected (NotDetected); Coronavirus HKU1 PCR Not Detected (NotDetected); Coronavirus NL63 PCR Not Detected (NotDetected); Coronavirus OC43PCR Not Detected (NotDetected); Human Metapneumovirus PCR Not Detected (NotDetected); Influenza A PCR Not Detected (NotDetected); Influenza B PCR Not Detected (NotDetected); Mycoplasma pneumoniae PCR Not Detected (NotDetected); Parainfluenza Virus 1 PCR Not Detected (NotDetected); Parainfluenza Virus 2 PCR Not Detected (NotDetected); Parainfluenza Virus 3 PCR Not Detected (NotDetected); Parainfluenza Virus 4 PCR Not Detected (NotDetected); Respiratory Syncytial VirusPCR Not Detected (NotDetected); Rhinovirus/Enterovirus PCR Not Detected (NotDetected)
[2025-02-22 14:38] LABS: Appearance Urine Clear (Clear); Bacteria Urine Automated None Seen (None Seen); Bilirubin Urine Negative (Negative); Blood Urine Negative (Negative); Cast Urine Automated 0-2 /lpf (0-2); Color Urine Yellow; Glucose Urine UA Negative (Negative); Ketones Urine 1+ (Negative); Leukocyte Esterase Urine 1+ (Negative); Nitrite Urine Negative (Negative); Protein Urine Negative (Negative); RBC Urine Automated 0-2 /hpf (0-2); Specific Gravity Urine 1.023 (1.000-1.030); Urobilinogen Urine Negative (Negative)
--- NOTE | 2025-02-22 16:02 | History & Physical Report ---
Date of Service February 22, 2025 Assessment & Plan (1) UTI (urinary tract infection): (2) Altered mental status: (3) Hx pulmonary embolism: Plan This patient is a 79-year-old female with PMH of dementia who presented on 02/22 for AMS. She was receiving treatment for UTI with Rocephin, but after receiving 2 doses, she developed an urticarial rash and Rocephin was discontinued. She was then placed on Macrobid and a prednisone taper on 02/16. On the evening of 02/21, she developed altered mental status and reported hallucinations, and she was sent to the ED on 02/22. Suspect this was due to either Macrobid or prednisone. Discontinue both agents #UTI/AMS Head CT without acute changes Discontinue potential offending agents (prednisone/Macrobid) Mild leukocytosis at 12.13; afebrile Last UCx on 02/12/2025 grew E. coli with multidrug resistance Would avoid restarting cephalosporins Meropenem 500 mg IV x 1 in the ED Will defer additional antibiotics, as it is possible that her UTI is only mildly contributory at this point (has been on antibiotics for the past week) Follow current UCx #History of bilateral PE Continue Eliquis #CAD s/p heart stents Continue Plavix #HTN Continue amlodipine, isosorbide mononitrate, lisinopril #Asthma Ipratropium-albuterol PRN #Hypothyroidism Continue levothyroxine #Anxiety Continue duloxetine [facility] PPx: Eliquis History of Present Illness Chief Complaint: Altered mental status Primary Care Provider: [facility] Jennifer is a 79-year-old female with PMH of dementia, mixed stress and urinary incontinence, depression, rheumatoid arthritis, chronic pain syndrome, bilateral PE (on Eliquis) and complicated/recurrent UTIs. She presented via EMS from [facility] on 02/22 for altered mental status. Patient is a poor historian at time of admission due to underlying dementia; A&O to name, , month of the year, and location, but not purpose in the hospital. She keeps repeating that she does not anyone to "hurt her babies"or the "firefighters". Most of the history is obtained from paperwork sent in from [facility]. No family or caretakers at bedside. Patient failed outpatient treatment for UTI; was on Rocephin but developed a rash. She was then placed on a steroid taper and switch to Macrobid, but became increasingly confused. Last night, the patient started rearranging her room and was reportedly hallucinating. Only oriented to self at that time. Patient is hypertensive at 142/93 at time admission; vitals otherwise stable. ED course: Meropenem 500 mg IV All difficult to obtain ROS at this time, patient denies fever, chest pain, pleuritic CP, SOB, chest palpitations, or abdominal pain. She is unsure if she has had burning with urination. Per [facility] notes: Patient took 2 doses of ceftriaxone, and developed itchiness and an urticarial rash over her back, bilateral lower extremities, and right arm. Her upper lip also became swollen. No respiratory distress. Ceftriaxone was discontinued on 02/16, and patient was started on a prednisone taper as well as nitrofurantoin. Additionally, patient took all of her regular morning medicines today, including Eliquis. Allergies Allergy/AdvReac Type Severity Reaction Status Date / Time ceftriaxone Allergy Intermediate Rash Verified 02/22/25 15:18 ibuprofen Allergy Unknown ON CENTRE Verified 02/22/25 15:18 CARE MED LIST propylthiouracil Allergy Unknown ON CENTRE Verified 02/22/25 15:18 CARE MED LIST prednisone AdvReac Intermediate Confusion Verified 02/22/25 17:27 Home Medications Medication Instructions Recorded Confirmed Type clopidogrel 75 mg tablet 75 mg PO QAM 11/17/23 02/22/25 History docusate sodium 100 mg capsule 200 mg PO HS 11/17/23 02/22/25 History folic acid 1 mg tablet 1 mg PO QAM 11/17/23 02/22/25 History calcium carbonate 1,000 mg PO Q6H PRN Indigestion 12/02/23 02/22/25 History diclofenac sodium 1 % topical gel 2 - 4 g topical QID #100 grams 03/23/24 02/22/25 Rx ipratropium 0.5 mg-albuterol 3 mg 3 ml inhalation Q2H PRN Shortness 07/10/24 02/22/25 History (2.5 mg base)/3 mL nebulization Of Breath Or Wheezing soln potassium chloride 10 mEq 10 meq PO BIDM 07/10/24 02/22/25 History capsule,extended release acetaminophen 325 mg tablet 650 mg PO Q6 PRN PAIN/TEMP >100 07/27/24 02/22/25 History isosorbide mononitrate 60 mg 60 mg PO QAM 07/27/24 02/22/25 History tablet,extended release 24 hr levothyroxine 150 mcg tablet 150 mcg PO DAILYBB 07/27/24 02/22/25 History melatonin 10 mg tablet 10 mg PO HS 07/27/24 02/22/25 History cyanocobalamin (vitamin B-12) 2,500 mcg PO QAM 09/11/24 02/22/25 History 2,500 mcg tablet omega-3 fatty acids 1,000 mg 1,000 mg PO QAM 09/11/24 02/22/25 History capsule propylene glycol 0.6 % eye drops 1 drp OPB BIDM 09/11/24 02/22/25 History (Systane Balance) buspirone 5 mg tablet 5 mg PO BID #60 tabs 09/17/24 02/22/25 Rx duloxetine 60 mg capsule,delayed 60 mg PO HS #60 caps 09/17/24 02/22/25 Rx release lisinopril 5 mg tablet (Zestril) 5 mg PO QAM #30 tabs 09/17/24 02/22/25 Rx Femdophilus 1 dose PO TID 02/22/25 02/22/25 History apixaban 5 mg tablet (Eliquis) 5 mg PO BID 02/22/25 02/22/25 History ascorbic acid (vitamin C) 1,000 mg 1 g PO DAILY 02/22/25 02/22/25 History tablet (Vitamin C) cetylpyridinium chloride 1 isabel mucous membrane Q4H PRN SORE 02/22/25 02/22/25 History THROAT/COUGH conjugated estrogens 0.625 mg/gram 0.625 mg vaginal HS 02/22/25 02/22/25 History vaginal cream (Premarin) cranberry extract 500 [id number] 1 tab PO BID 02/22/25 02/22/25 History 50 mg chewable tablet d-mannose 500 mg capsule 500 mg PO BID 02/22/25 02/22/25 History methenamine hippurate 1 gram tablet 1 g PO AMHS 02/22/25 02/22/25 History pantoprazole 40 mg tablet,delayed 40 mg PO DAILY 02/22/25 02/22/25 History release (Protonix) trazodone 50 mg tablet 75 mg PO HS 02/22/25 02/22/25 History Past Med/Surg History Problem List (Updated 02/23/25 @ 09:13 by Bethany Ayoub MD) Hx pulmonary embolism Altered mental status UTI (urinary tract infection) Arthritis Incomplete bladder emptying Recurrent UTI (Acute) Stress incontinence (Acute) Urge incontinence (Acute) Complicated UTI (urinary tract infection) (Acute) Pulmonary emboli Prediabetes Exposure to COVID-19 virus DVT prophylaxis Dyslipidemia Left hemiparesis Constipation Mixed urge and stress incontinence Depression Rheumatoid arthritis Stroke-like symptoms Chronic pain syndrome Hypothyroidism Asthma GERD (gastroesophageal reflux disease) Unspecified dementia, unspecified severity, without behavioral disturbance, psychotic disturbance, mood disturbance, and anxiety Medical History Rheumatoid arthritis Mixed urge and stress incontinence custodial resident resident of [facility] Left hemiparesis Prediabetes Hx pulmonary embolism Major depressive disorder Aphasia Rhabdomyolysis hx Hx of Clostridium difficile infection Acute respiratory failure with hypoxia hx-per intermediate records Dysphagia Difficulty walking Hypothyroidism Atherosclerotic heart disease GERD (gastroesophageal reflux disease) Asthma HTN (hypertension) Weakness Chronic pain syndrome Low back pain Stroke CAD (coronary atherosclerotic disease) Cognitive communication deficit Surgical History Hx of left cataract extraction Family History Mother , in her mid 80s of diabetic complications Diabetes Father , in his mid 80s No problems noted. 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 Feels Safe at Home: Yes Assistive Devices: Wheelchair Review of Systems Review of Systems: See HPI above Physical Exam Physical Exam: General: no acute distress; however, patient is tearful, and keeps repeating that she does not want anyone to "hurt her babies"; non-toxic appearing; well- nourished; cooperative; SpO2 95% on RA HEENT: normocephalic, atraumatic; no scleral icterus; PERRLA; vision and hearing grossly intact Neck: supple; no lymphadenopathy; trachea midline Skin: warm, dry without signs of tenting; no cyanosis; no rashes, bruising, lesions, or erythema noted CV: chest wall NTP; RRR; S1/S2 normal; no murmurs/rubs/gallops; pulses intact and symmetric at radial, DP, and PT Lungs: no acute respiratory distress; symmetrical chest wall expansion; clear breath sounds across all lung chapman w/o adventitious sounds; no wheezing ABD: Soft, NTP; BS present; no rebound/guarding; no distention MSK: no tics or fasciculations; nonpitting edema noted in the LEs b/l, nonerythematous Neuro: A&Ox3, but not oriented to purpose in the hospital; incoherent thought p rocesses; fluent speech; no focal deficits; sensation grossly intact in the LEs b/l Results & Data Results & Data Vital Signs (Past 12 Hours) Vital Signs Temp Pulse Resp BP Pulse Ox O2 Del Method 02/22/25 13:57 68 21 95 02/22/25 13:06 68 19 142/93 H 02/22/25 12:36 93 Room Air 02/22/25 12:23 36.8 C 76 19 158/89 H 93 Room Air Laboratory Results Abnormal lab results 02/22/25 02/22/25 Range/Units 13:11 14:15 WBC 12.13 H (4.8-10.8) K/ul RDW Std Deviation 47.7 H (36.4-46.3) fL Neut # (Auto) 9.10 H (1.40-6.50) K/uL [place] # (Auto) 1.09 H (0.11-0.59) K/uL Eos # (Auto) 0.59 H (0.00-0.50) K/uL Alkaline Phosphatase 115 H (34-104) U/L Urine Ketones 1+ H (Negative) Ur Leukocyte Esterase 1+ H (Negative) Urine WBC (Auto) 11-20 H (0-5) /hpf U Epithel Cells (Auto) 6-10 H (0-2) /hpf Diagnostic Findings Chest X-Ray 02/22/25 12:27 XR chest 1V portable CLINICAL HISTORY: weakness COMPARISON STUDY: 09/11/2024 FINDINGS: Stable thoracic neurostimulator. Stable cardiomegaly without pulmonary vascular congestion. Inspiration is shallow. There is stable mild stranding opacity in the lung bases. No new consolidation or pleural effusion. No pneumothorax. IMPRESSION: Stable exam. ACT 112: Negative or not required by law. Electronically signed by: Juan F Dhillon M.D. 02/22/2025 12:44 PM ECG Additional Comments: ECG revealed sinus rhythm with first-degree AV block at 73 bpm; QTc 453 Code Status & VTE Plan Code Status DNR/DNI (per paperwork sent over from [facility]) VTE Prophylaxis Plan VTE Prophylaxis will be ordered: Yes Supervising Physician Co-Signing Physician Notes I personally saw and examined the patient. I independently reviewed the labs, EKG, imaging, problem list, medication list, past medical history and family history. I verified all guzman points and agree with Tom Kee PA-C with the following exceptions and/or additions: 79 year old female presents to the ER with altered mental state O/E Alert and orientated to self, HS RRR, no murmurs, Chest CTAB, Abdo SNT, no one sided weakness, no CVA tenderness A/P AMS - unclear cause on admission, ?steroid induced vs ongoing urine infection, agree with above management PG Care Time/CCT Total # of Minutes Spent Total Time Spent with Patient: Total time spent is greater than 50% in coordination of care (as documented) at patient's floor/unit and/or counseling patient: Coding [place] [address] INT INP/OBS CARE 2/55MIN Patient Type Established Medical Decision Making Moderate Complexity Diagnoses UTI (urinary tract infection) N39.0 Altered mental status R41.82 Hx pulmonary embolism Z86.711
--- NOTE | 2025-02-22 16:16 | Electrocardiogram Report ---
Test Reason : Blood Pressure : */* mmHG Vent. Rate : 73 BPM Atrial Rate : 73 BPM P-R Int : 210 ms QRS Dur : 132 ms QT Int : 412 ms P-R-T Axes : 30 -28 -20 degrees QTcB Int : 453 ms Sinus rhythm with 1st degree A-V block Right bundle branch block Inferior infarct (cited on or before 02-Dec-2023) Abnormal ECG When compared with ECG of 11-Sep-2024 16:13, Premature atrial complexes are no longer Present Confirmed by José Luis Jean-Baptiste ([id number]) on 02/22/2025 4:16:32 PM Referred By: Confirmed By: José Luis Jean-Baptiste
[2025-02-22] MEDS: MEROPENEM 500 MG in SYRINGE 0 ML IV SCH (16:19)
--- NOTE | 2025-02-22 16:23 | Emergency Department Note ---
Impression & Plan Recurrent UTI, Complicated UTI (urinary tract infection) ED Provider Note NAME: IVETH WATT AGE: 79 SEX: F : 1945 ARRIVES VIA: Ambulance INFORMANT: Patient, ED PROVIDER(S): Bethany Ayoub MD CHIEF COMPLAINT: UTI HPI: This is a 79-year-old female presenting for UTIs. Patient has history of dementia and is currently [facility]. She notes feeling fatigued and unwell. As per reports, patient was treated for UTI, to receive Rocephin developed a rash. Put on steroid taper and switch to Macrobid. She has had increasing confusion as per the facility staff. She has hallucinations at night. She reports no chest pain, shortness of breath, back pain leg pain to me. No fevers. ROS: See above HPI for pertinent positives & negatives. A total of 10 systems reviewed and were otherwise negative. PHYSICAL EXAMINATION: General: resting comfortably in no acute distress Head: Normocephalic and atraumatic Eyes: Normal inspection, extraocular muscles intact Ear, nose, throat: Normal external exam Neck: Normal range of motion Respiratory: speaking in full sentences, symmetric chest rise, no respiratory distress Cardiovascular: Regular rate/rhythm GI: Soft nontender abdomen Extremities: moves all extremities Neuro: The patient awake and alert, appropriately conversive, symmetric faces, no focal deficits MEDICAL DECISION MAKING: This is a 79-year-old female presenting for UTI. Patient had inpatient outpatient treatment. Was on ceftriaxone then Macrobid. Still having symptoms and increased confusion. -Blood work is reviewed showing leukocytosis 12.13, otherwise negative blood work. -Urinalysis does show signs of continued UTI. -After discussion with pharmacist, we will switch to meropenem Differential diagnosis: Pyelonephritis, UTI, encephalitis Diagnostics interpreted by me: ECG: None Cardiac Monitoring: An order was placed for continuous cardiac monitoring. The monitor shows a rate of 63 with sinus rhythm. Past Med/Surg History Problem List (Updated 02/23/25 @ 09:13 by Bethany Ayoub MD) Hx pulmonary embolism Altered mental status UTI (urinary tract infection) Arthritis Incomplete bladder emptying Recurrent UTI (Acute) Stress incontinence (Acute) Urge incontinence (Acute) Complicated UTI (urinary tract infection) (Acute) Pulmonary emboli Prediabetes Exposure to COVID-19 virus DVT prophylaxis Dyslipidemia Left hemiparesis Constipation Mixed urge and stress incontinence Depression Rheumatoid arthritis Stroke-like symptoms Chronic pain syndrome Hypothyroidism Asthma GERD (gastroesophageal reflux disease) Unspecified dementia, unspecified severity, without behavioral disturbance, psychotic disturbance, mood disturbance, and anxiety Medical History Rheumatoid arthritis Mixed urge and stress incontinence senior living resident resident of [facility] Left hemiparesis Prediabetes Hx pulmonary embolism Major depressive disorder Aphasia Rhabdomyolysis hx Hx of Clostridium difficile infection Acute respiratory failure with hypoxia hx-per senior living records Dysphagia Difficulty walking Hypothyroidism Atherosclerotic heart disease GERD (gastroesophageal reflux disease) Asthma HTN (hypertension) Weakness Chronic pain syndrome Low back pain Stroke CAD (coronary atherosclerotic disease) Cognitive communication deficit Surgical History Hx of left cataract extraction Family History Mother , in her mid 80s of diabetic complications Diabetes Father , in his mid 80s No problems noted. 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 Feels Safe at Home: Yes Assistive Devices: Glasses, Oxygen - Continuous and Walker Allergies Allergies Allergy/AdvReac Type Severity Reaction Status Date / Time ceftriaxone Allergy Intermediate Rash Verified 02/22/25 15:18 ibuprofen Allergy Unknown ON [facility] Verified 02/22/25 15:18 CARE MED LIST propylthiouracil Allergy Unknown ON [facility] Verified 02/22/25 15:18 CARE MED LIST prednisone AdvReac Intermediate Confusion Verified 02/22/25 17:27 Home Meds Home Medications Medication Instructions Recorded Confirmed amlodipine 2.5 mg tablet 2.5 mg PO QAM 11/17/23 02/22/25 clopidogrel 75 mg tablet 75 mg PO QAM 11/17/23 02/22/25 docusate sodium 100 mg capsule 200 mg PO HS 11/17/23 02/22/25 folic acid 1 mg tablet 1 mg PO QAM 11/17/23 02/22/25 calcium carbonate 1,000 mg PO Q6H PRN Indigestion 12/02/23 02/22/25 ipratropium 0.5 mg-albuterol 3 mg 3 ml inhalation Q2H PRN Shortness 07/10/24 02/22/25 (2.5 mg base)/3 mL nebulization Of Breath Or Wheezing soln potassium chloride 10 mEq 10 meq PO BIDM 07/10/24 02/22/25 capsule,extended release acetaminophen 325 mg tablet 650 mg PO Q6 PRN PAIN/TEMP >100 07/27/24 02/22/25 isosorbide mononitrate 60 mg 60 mg PO QAM 07/27/24 02/22/25 tablet,extended release 24 hr levothyroxine 150 mcg tablet 150 mcg PO DAILYBB 07/27/24 02/22/25 melatonin 10 mg tablet 10 mg PO HS 07/27/24 02/22/25 cyanocobalamin (vitamin B-12) 2,500 mcg PO QAM 09/11/24 02/22/25 2,500 mcg tablet omega-3 fatty acids 1,000 mg 1,000 mg PO QAM 09/11/24 02/22/25 capsule propylene glycol 0.6 % eye drops 1 drp OPB BIDM 09/11/24 02/22/25 (Systane Balance) Femdophilus 1 dose PO TID 02/22/25 02/22/25 apixaban 5 mg tablet (Eliquis) 5 mg PO BID 02/22/25 02/22/25 ascorbic acid (vitamin C) 1,000 mg 1 g PO DAILY 02/22/25 02/22/25 tablet (Vitamin C) cetylpyridinium chloride 1 isabel mucous membrane Q4H PRN SORE 02/22/25 02/22/25 THROAT/COUGH conjugated estrogens 0.625 mg/gram 0.625 mg vaginal HS 02/22/25 02/22/25 vaginal cream (Premarin) cranberry extract 500 [id number] 1 tab PO BID 02/22/25 02/22/25 50 mg chewable tablet d-mannose 500 mg capsule 500 mg PO BID 02/22/25 02/22/25 methenamine hippurate 1 gram tablet 1 g PO AMHS 02/22/25 02/22/25 pantoprazole 40 mg tablet,delayed 40 mg PO DAILY 02/22/25 02/22/25 release (Protonix) trazodone 50 mg tablet 75 mg PO HS 02/22/25 02/22/25 Previous Rx's Medication Instructions Recorded diclofenac sodium 1 % topical gel 2 - 4 g topical QID #100 grams 03/23/24 buspirone 5 mg tablet 5 mg PO BID #60 tabs 09/17/24 duloxetine 60 mg capsule,delayed 60 mg PO HS #60 caps 09/17/24 release lisinopril 5 mg tablet (Zestril) 5 mg PO QAM #30 tabs 09/17/24 Results & Data (ED) Vital Signs Vital Signs - 24 hr 02/22/25 12:23 02/22/25 12:36 02/22/25 13:06 Temperature 36.8 C Temperature Source Oral Pulse Rate 76 68 Pulse Rate from SpO2 Sensor Respiratory Rate 19 19 Respiratory Effort / Characteristics Non-Labored Spontaneous Respiratory Depth Normal Respiratory Pattern Regular Blood Pressure 158/89 H 142/93 H Blood Pressure Mean 112 109 Pulse Oximetry 93 93 Oxygen Delivery Method Room Air Room Air Oxygen Flow Rate Sepsis Recent Fever Within 48 Hours No Sepsis New/Unexplained Change in Mental Status No Sepsis Action Taken by Nursing No Action Required 02/22/25 13:57 02/22/25 14:00 02/22/25 14:39 Temperature Temperature Source Pulse Rate 68 75 72 Pulse Rate from SpO2 Sensor 69 74 71 Respiratory Rate 21 20 15 Respiratory Effort / Characteristics Respiratory Depth Respiratory Pattern Blood Pressure 160/94 H Blood Pressure Mean 116 Pulse Oximetry 95 95 94 Oxygen Delivery Method Oxygen Flow Rate Sepsis Recent Fever Within 48 Hours Sepsis New/Unexplained Change in Mental Status Sepsis Action Taken by Nursing 02/22/25 15:00 02/22/25 15:39 02/22/25 16:00 Temperature Temperature Source Pulse Rate 65 67 Pulse Rate from SpO2 Sensor Respiratory Rate 20 24 Respiratory Effort / Characteristics Respiratory Depth Respiratory Pattern Blood Pressure 159/91 H Blood Pressure Mean 113 Pulse Oximetry 88 L Oxygen Delivery Method Room Air Oxygen Flow Rate Sepsis Recent Fever Within 48 Hours Sepsis New/Unexplained Change in Mental Status Sepsis Action Taken by Nursing 02/22/25 16:01 02/22/25 16:03 02/22/25 16:30 Temperature Temperature Source Pulse Rate 71 69 Pulse Rate from SpO2 Sensor 26 L Respiratory Rate 25 H 23 Respiratory Effort / Characteristics Respiratory Depth Respiratory Pattern Blood Pressure Blood Pressure Mean Pulse Oximetry 92 80 L Oxygen Delivery Method Nasal Cannula Oxygen Flow Rate 2 Sepsis Recent Fever Within 48 Hours Sepsis New/Unexplained Change in Mental Status Sepsis Action Taken by Nursing 02/22/25 17:00 Temperature Temperature Source Pulse Rate 69 Pulse Rate from SpO2 Sensor 69 Respiratory Rate 20 Respiratory Effort / Characteristics Respiratory Depth Respiratory Pattern Blood Pressure 175/105 H Blood Pressure Mean 128 Pulse Oximetry 92 Oxygen Delivery Method Oxygen Flow Rate Sepsis Recent Fever Within 48 Hours Sepsis New/Unexplained Change in Mental Status Sepsis Action Taken by Nursing Laboratory Data 02/23/25 06:22 02/23/25 06:22 Lab Results 02/22/25 02/22/25 02/22/25 Range/Units 13:10 13:11 14:15 WBC 12.13 H (4.8-10.8) K/ul RBC 4.68 (4.20-5.40) M/uL Hgb 13.8 (12.0-16.0) g/dl Hct 42.2 (37.0-47.0) % MCV 90.2 (80.0-100.0) fL MCH 29.5 (25.0-34.0) pg MCHC 32.7 (32.0-36.0) g/dL RDW Std Deviation 47.7 H (36.4-46.3) fL RDW Coeff of Julius 14.5 (11.5-14.5) % Plt Count 298 (130-400) K/uL MPV 9.6 (9.4-12.4) fL Immature Gran % (Auto) 0.5 % Neut % (Auto) 74.9 % Lymph % (Auto) 10.1 % [place] % (Auto) 9.0 % Eos % (Auto) 4.9 % Baso % (Auto) 0.6 % Neut # (Auto) 9.10 H (1.40-6.50) K/uL Lymph # (Auto) 1.22 (1.20-3.40) K/uL [place] # (Auto) 1.09 H (0.11-0.59) K/uL Eos # (Auto) 0.59 H (0.00-0.50) K/uL Baso # (Auto) 0.07 (0.00-0.20) K/uL Immature Gran # (Auto) 0.06 (0.01-0.20) K/uL Sodium 140 (136-145) mmol/L Potassium 4.2 (3.5-5.1) mmol/L Chloride 103 (98-107) mmol/L Carbon Dioxide 30 (21-32) mmol/L Anion Gap 7 (3-11) BUN 22 (6-23) mg/dl Creatinine 1.20 (0.6-1.2) mg/dl Est Cr Clr Drug Dosing 42.5 ml/min eGFR 46.05 BUN/Creatinine Ratio 18.3 (10-20) Glucose 90 (70-99(Fasting)) mg/dl Lactate 1.0 (0.4-2.0) mmol/L Calcium 8.9 (8.6-10.3) mg/dl Total Bilirubin 0.6 (0.2-1.0) mg/dl AST 14 (13-39) U/L ALT 29 (7-52) U/L Alkaline Phosphatase 115 H (34-104) U/L Troponin I High Sens 5.7 (0-14) pg/ml Total Protein 6.8 (6.0-8.3) gm/dl Albumin 4.2 (3.4-5.0) gm/dl Globulin 2.6 (2.5-4.0) gm/dl Albumin/Globulin Ratio 1.6 (0.9-2) TSH 2.056 (0.300-4.500) uIu/ml Urine Color Yellow Urine Appearance Clear (Clear) Urine pH 6.0 (4.5-7.5) Ur Specific [place] 1.023 (1.000-1.030) Urine Protein Negative (Negative) Urine Glucose (UA) Negative (Negative) Urine Ketones 1+ H (Negative) Urine Blood Negative (Negative) Urine Nitrite Negative (Negative) Urine Bilirubin Negative (Negative) Urine Urobilinogen Negative (Negative) Ur Leukocyte Esterase 1+ H (Negative) Urine WBC (Auto) 11-20 H (0-5) /hpf Urine RBC (Auto) 0-2 (0-2) /hpf U Hyaline Cast (Auto) 0-2 (0-2) /lpf U Epithel Cells (Auto) 6-10 H (0-2) /hpf Urine Bacteria (Auto) None Seen (None Seen) Adenovirus (PCR) Not Detected (NotDetected) B. pertussis DNA (PCR) Not Detected (NotDetected) B.parapertussis DNA PCR Not Detected (NotDetected) C. pneumoniae DNA (PCR) Not Detected (NotDetected) Coronavirus OC43 (PCR) Not Detected (NotDetected) Coronavirus HKU1 (PCR) Not Detected (NotDetected) Coronavirus 229E (PCR) Not Detected (NotDetected) SARS-CoV-2 (PCR) Not Detected (NotDetected) Coronavirus NL63 (PCR) Not Detected (NotDetected) Human Metapneumovir PCR Not Detected (NotDetected) Influenza Type A (PCR) Not Detected (NotDetected) Influenza Type B (PCR) Not Detected (NotDetected) M. pneumoniae (PCR) Not Detected (NotDetected) Parainfluenza 1 (PCR) Not Detected (NotDetected) Parainfluenza 2 (PCR) Not Detected (NotDetected) Parainfluenza 3 (PCR) Not Detected (NotDetected) Parainfluenza 4 (PCR) Not Detected (NotDetected) RSV (PCR) Not Detected (NotDetected) Entero/Rhino (PCR) Not Detected (NotDetected) Administered Medications Amlodipine Besylate (Amlodipine Besylate 5 Mg Tab) 2.5 mg PO [facility] Stop: 03/25/25 08:59 Last Admin: 02/23/25 08:42 Dose: 2.5 mg Documented By: JESSICA Apixaban (Apixaban 5 Mg Tablet) 5 mg PO BID [facility] Stop: 03/24/25 20:59 Last Admin: 02/23/25 08:42 Dose: 5 mg Documented By: Admin: 02/22/25 21:43 Dose: 5 mg Documented By: LEIA Buspirone HCl (Buspirone 5 Mg Tab) 5 mg PO BID [facility] Stop: 03/24/25 20:59 Last Admin: 02/23/25 08:42 Dose: 5 mg Documented By: Admin: 02/22/25 21:43 Dose: 5 mg Documented By: LEIA Clopidogrel Bisulfate (Clopidogrel Bisulfate 75 Mg Tab) [facility] [place] [place]: 03/25/25 08:59 Last Admin: 02/23/25 08:43 Dose: 75 mg Documented By: JESSICA Docusate Sodium (Docusate Sodium 100 Mg Cap) 200 mg PO [facility] Stop: 03/24/25 20:59 Last Admin: 02/22/25 21:43 Dose: 200 mg Documented By: LEIA Duloxetine HCl (Duloxetine Hcl 60 Mg Cap) 60 mg PO [facility] Stop: 03/24/25 20:59 Last Admin: 02/22/25 21:43 Dose: 60 mg Documented By: LEIA Folic Acid (Folic Acid 1 Mg Tab) [facility] [place] [facility] [place]: 03/25/25 08:59 Last Admin: 02/23/25 08:41 Dose: 1 mg Documented By: JESSICA Isosorbide Mononitrate (Isosorbide [place] Extended Rel 60 Mg Tabcr) 60 [facility] [place] [facility] [place]: 03/25/25 08:59 Last Admin: 02/23/25 08:41 Dose: 60 mg Documented By: JESSICA Levothyroxine Sodium (Levothyroxine Sodium 150 Mcg Tablet) 150 mcg PO DAILYBB [facility] Stop: 03/25/25 06:29 Last Admin: 02/23/25 05:37 Dose: 150 mcg Documented By: LEIA Lisinopril (Lisinopril 5 Mg Tab) 5 [facility] [place] [facility] [place]: 03/25/25 08:59 Last Admin: 02/23/25 08:43 Dose: 5 mg Documented By: JESSICA Melatonin (Melatonin 3 Mg Tab) 3 mg PO [facility] Stop: 03/24/25 20:59 Last Admin: 02/22/25 21:43 Dose: 3 mg Documented By: LEIA Pantoprazole Sodium (Pantoprazole 40 Mg Tab) 40 mg PO DAILY [facility] Stop: 03/25/25 08:59 Last Admin: 02/23/25 08:42 Dose: 40 mg Documented By: JESSICA Potassium Chloride (Potassium Chloride 10 Meq Tabcr) 10 meq PO BIDM [facility] Stop: 03/24/25 19:04 Last Admin: 02/23/25 08:57 Dose: 10 meq Documented By: Admin: 02/22/25 20:08 Dose: 10 meq Documented By: JARED Trazodone HCl (Trazodone Hcl 50 Mg Tab) 75 mg PO [facility] Stop: 03/24/25 20:59 Last Admin: 02/22/25 21:43 Dose: 75 mg Documented By: JT Discontinued Medications Meropenem 500 mg/ Syringe 10 mls @ 2 mls/min IV Q8H [facility]; Protocol Stop: 02/24/25 15:29 Last Admin: 02/22/25 16:19 Dose: 2 mls/min Documented By: BS Imaging Data Radiologist's Impression: Chest X-Ray 02/22/25 12:27 XR chest 1V portable CLINICAL HISTORY: weakness COMPARISON STUDY: 09/11/2024 FINDINGS: Stable thoracic neurostimulator. Stable cardiomegaly without pulmonary vascular congestion. Inspiration is shallow. There is stable mild stranding opacity in the lung bases. No new consolidation or pleural effusion. No pneumothorax. IMPRESSION: Stable exam. ACT 112: Negative or not required by law. Electronically signed by: Juan F Dhillon M.D. 02/22/2025 12:44 PM Discharge Plan Visit Data Chief Complaint: Altered Mental Status ED Provider: Bethany Ayoub Discharge Problem: Recurrent UTI, Complicated UTI (urinary tract infection) Patient Disposition: Admitted As Inpatient Discharge Instructions Interventions: ED Discharge Assessment Last Done: 02/22/25 19:06
--- NOTE | 2025-02-22 17:47 | CT Scan Report ---
EXAM: CT Head Without Intravenous Contrast INDICATION: Altered mental status TECHNIQUE: Axial computed tomography images of the head/brain without intravenous contrast. Sagittal and/or coronal reformats are provided. Sagittal and coronal reformatted images were created and reviewed. This CT exam was performed using one or more of the following dose reduction techniques: automated exposure control, adjustment of the mA and/or kV according to patient size, and/or use of iterative reconstruction technique. COMPARISON: 09/16/2024 FINDINGS: Limitations: None. Brain and extra-axial spaces: There is age appropriate cortical atrophy and chronic ischemic periventricular white matter hypodensity. No acute infarct, hemorrhage or mass noted. Bones/joints: No acute changes. Soft tissues: No significant abnormality noted. Vasculature: There is dense intracranial atherosclerosis of the vertebral and carotid arteries. Sinuses: There is slight increased chronic mucosal thickening of the right sphenoid sinus. Mastoid air cells: No mastoid effusion. Orbits: No significant abnormality noted. IMPRESSION: 1. Cerebral atrophy. No acute changes. 2. Slight increase mild chronic right sphenoid sinusitis. ACT 112: N/A Electronically signed by Geraldine Dixon 02-22-2025 5:47 PM
[2025-02-22] MEDS ORDERED: NON-FORMULARY MEDICATION (Propylene Glycol [Systane Balance] 0.6 % Drops) OPB SCH (19:05)
[2025-02-22] MEDS ORDERED: ONDANSETRON INJ 2 MG/ML 2 ML VIAL IV PRN (19:05)
[2025-02-22] MEDS ORDERED: ACETAMINOPHEN 325 MG TAB PO PRN (19:05)
[2025-02-22] MEDS ORDERED: ALBUT/IPRATROP 3MG/0.5MG NEB 3 ML VIAL INH PRN (19:05)
[2025-02-22] MEDS: POTASSIUM CHLORIDE 10 MEQ TABCR PO SCH (20:08)
[2025-02-22] MEDS: MELATONIN 3 MG TAB PO SCH (21:43)
[2025-02-22] MEDS: traZODone HCL 50 MG TAB PO SCH (21:43)
[2025-02-22] MEDS: DOCUSATE SODIUM 100 MG CAP PO SCH (21:43)
[2025-02-22] MEDS: APIXABAN 5 MG TABLET PO SCH (21:43)
[2025-02-22] MEDS: DULoxetine HCL 60 MG CAP PO SCH (21:43)
[2025-02-22] MEDS: busPIRone 5 MG TAB PO SCH (21:43)
[2025-02-23] MEDS: LEVOTHYROXINE SODIUM 150 MCG TABLET PO SCH (05:37)
[2025-02-23 07:09] LABS: Anion Gap 5 (3-11); BUN Creatinine Ratio 20.8 (10-20); Blood Urea Nitrogen 21 mg/dl (6-23); Calcium 8.8 mg/dl (8.6-10.3); Carbon Dioxide 28 mmol/L (21-32); Chloride 105 mmol/L (98-107); Creatinine Clr Calc Pharmacy 50.6 ml/min; Glucose 73 mg/dl (70-99(Fasting)); Sodium 138 mmol/L (136-145)
[2025-02-23 07:12] LABS: Basophils # (auto) 0.07 K/uL (0.00-0.20); Basophils % (auto) 0.7 %; Echinocytes 1+; Eosinophils # (auto) 0.63 K/uL (0.00-0.50); Eosinophils % (auto) 6.5 %; Hematocrit (blood only) 44.2 % (37.0-47.0); Hemoglobin 14.4 g/dl (12.0-16.0); Immature Granulocytes # (auto) 0.08 K/uL (0.01-0.20); Immature Granulocytes % (auto) 0.8 %; Lymphocytes # (auto) 0.79 K/uL (1.20-3.40); Lymphocytes % (auto) 8.2 %; Mean Corpuscular Hemoglobin 29.9 pg (25.0-34.0); Mean Corpuscular Hgb Conc 32.6 g/dL (32.0-36.0); Mean Corpuscular Volume 91.9 fL (80.0-100.0); Mean Platelet Volume 10.3 fL (9.4-12.4); Monocytes # (auto) 0.83 K/uL (0.11-0.59); Monocytes % (auto) 8.6 %; Neutrophils # (auto) 7.23 K/uL (1.40-6.50); Neutrophils % (auto) 75.2 %; Platelet Count 248 K/uL (130-400); Platelet Estimate Normal (Normal); RDW Coefficient of Variation 14.6 % (11.5-14.5); RDW Standard Deviation 49.6 fL (36.4-46.3); Red Blood Count 4.81 M/uL (4.20-5.40); White Blood Count 9.63 K/ul (4.8-10.8)
--- NOTE | 2025-02-23 08:32 | Hospitalist Progress Note ---
Date of Service February 23, 2025 Assessment & Plan (1) UTI (urinary tract infection): (2) Altered mental status: (3) Hx pulmonary embolism: Plan This patient is a 79-year-old female with PMH of dementia who presented on 02/22 for AMS. She was receiving treatment for UTI with Rocephin, but after receiving 2 doses, she developed an urticarial rash and Rocephin was discontinued. She was then placed on Macrobid and a prednisone taper on 02/16. On the evening of 02/21, she developed altered mental status and reported hallucinations, and she was sent to the ED on 02/22. Suspect this was due to either Macrobid or prednisone. Discontinue both agents #UTI #AMS- resolved Head CT without acute changes possibly due to recent infection and steroids Discontinue potential offending agents (prednisone/Macrobid) Mild leukocytosis at 12.13; afebrile Last UCx on 02/12/2025 grew E. coli sens to ceftriaxone and nitrofurantoin (she has essentially completed 7 day course of abx) Would avoid restarting cephalosporins Meropenem 500 mg IV x 1 in the ED Will defer additional antibiotics, as it is possible that her UTI is only mildly contributory at this point (has been on antibiotics for the past week) Follow current UCx #History of bilateral PE Continue Eliquis #CAD s/p heart stents Continue Plavix #HTN Continue amlodipine, isosorbide mononitrate, lisinopril #Asthma Ipratropium-albuterol PRN #Hypothyroidism Continue levothyroxine #Anxiety Continue duloxetine Disposition: pending PT / OT eval VTE PPx: Eliquis Admission and Anticipated Discharge Date Admission Date: February 22, 2025 Subjective no acute events overnight currently no new complaints per bedside RN, pt required 2 person assist with great difficulty to get her to the bathroom. Review of Systems Review of Systems: comprehensive ROS neg Physical Exam Physical Exam: Gen: elderly female sitting in chair HEENT: NC/AT, anicteric, MMM CVS: s1s2 nl, RRR Lungs: CTAB Abd: nl bowel sounds, soft, NT Ext: no edema Neuro: AAOx3, pt also able to state that she is in the hospital due to urine infection Psych: calm, cooperative Results & Data Results & Data Vital Signs (Past 12 Hours) Vital Signs Temp Pulse Pulse Resp BP Pulse Ox O2 Del Method 02/23/25 07:40 36.3 C L 63 18 134/98 92 Nasal Cannula 02/22/25 23:19 Nasal Cannula 02/22/25 23:19 37.2 C 64 18 150/79 H 92 Nasal Cannula O2 Flow Rate 02/23/25 07:40 2.0 02/22/25 23:19 2 02/22/25 23:19 2 PG Care Time/CCT Total # of Minutes Spent Total Time Spent with Patient: Total time spent is greater than 50% in coordination of care (as documented) at patient's floor/unit and/or counseling patient: Coding Level of Care Code 46310 SUB INP/OBS CARE 2/35MIN Diagnoses UTI (urinary tract infection) N39.0 Altered mental status R41.82 Hx pulmonary embolism Z86.711
[2025-02-23] MEDS: FOLIC ACID 1 MG TAB PO SCH (08:41)
[2025-02-23] MEDS: ISOSORBIDE MONO EXTENDED REL 60 MG TABCR PO SCH (08:41)
[2025-02-23] MEDS: PANTOprazole 40 MG TAB PO SCH (08:42)
[2025-02-23] MEDS: amLODIPine BESYLATE 5 MG TAB PO SCH (08:42)
[2025-02-23] MEDS: CLOPIDOGREL BISULFATE 75 MG TAB PO SCH (08:43)
[2025-02-23] MEDS: lisinopril 5 MG TAB PO SCH (08:43)
[2025-02-23] MEDS: MAGNESIUM HYDROXIDE SUSP 30 ML UDC PO ONE (14:18)
[2025-02-23] MEDS: DOCUSATE SODIUM/SENNA 50/8.6MG TAB PO SCH (16:39)
[2025-02-24 07:55] VITALS: BP 134/76; PULSE 66; RESP 17; TEMP 98.1; O2SAT 95
[2025-02-24 08:21] LABS: Hematocrit (blood only) 42.3 % (37.0-47.0); Hemoglobin 14.1 g/dl (12.0-16.0); Mean Corpuscular Hemoglobin 29.9 pg (25.0-34.0); Mean Corpuscular Hgb Conc 33.3 g/dL (32.0-36.0); Mean Corpuscular Volume 89.6 fL (80.0-100.0); Mean Platelet Volume 9.8 fL (9.4-12.4); Platelet Count 295 K/uL (130-400); RDW Coefficient of Variation 14.4 % (11.5-14.5); RDW Standard Deviation 47.3 fL (36.4-46.3); Red Blood Count 4.72 M/uL (4.20-5.40); White Blood Count 8.45 K/ul (4.8-10.8)
[2025-02-24] MEDS: POLYETHYLENE (MIRALAX) 17 GM PACK PO SCH (08:28)
[2025-02-24 08:39] LABS: BUN Creatinine Ratio 21.2 (10-20); Calcium 8.9 mg/dl (8.6-10.3); Creatinine Clr Calc Pharmacy 45.2 ml/min; Magnesium 2.2 mg/dl (1.7-2.4); Phosphorus 2.6 mg/dl (2.5-4.9); Potassium 4.6 mmol/L (3.5-5.1)
--- NOTE | 2025-02-24 14:15 | Discharge Summary ---
Discharge Summary Date of Service February 24, 2025 Principal Dx & Hospital Course #1 = Principal Diagnosis (1) UTI (urinary tract infection): (2) Altered mental status: (3) Hx pulmonary embolism: Plan This patient is a 79-year-old female with PMH of dementia who presented on 02/22 for AMS. She was receiving treatment for UTI with Rocephin, but after receiving 2 doses, she developed an urticarial rash and Rocephin was discontinued. She was then placed on Macrobid and a prednisone taper on 02/16. On the evening of 02/21, she developed altered mental status and reported hallucinations, and she was sent to the ED on 02/22. Suspect this was due to either Macrobid or prednisone. Discontinue both agents #UTI #AMS- resolved (likely due to steroids) Head CT without acute changes possibly due to recent infection and steroids Discontinue potential offending agents (prednisone/Macrobid) Mild leukocytosis at 12.13; afebrile Last UCx on 02/12/2025 grew E. coli sens to ceftriaxone and nitrofurantoin (she has essentially completed 7 day course of abx) Would avoid restarting cephalosporins Meropenem 500 mg IV x 1 in the ED no further abx at this time Currently culture with unremarkable growth #History of bilateral PE Continue Eliquis #CAD s/p heart stents Continue Plavix #HTN Continue isosorbide mononitrate, lisinopril D/c amlodipine due to low BP in the AM, if BP elevated during the evening, add amlodipine at night #Asthma Ipratropium-albuterol PRN #Hypothyroidism Continue levothyroxine #Anxiety Continue duloxetine Disposition: PT / OT cleared pt for d/c back to [facility] Admission HPI Per Admitting Provider Jennifer is a 79-year-old female with PMH of dementia, mixed stress and urinary incontinence, depression, rheumatoid arthritis, chronic pain syndrome, bilateral PE (on Eliquis) and complicated/recurrent UTIs. She presented via EMS from [facility] on 02/22 for altered mental status. Patient is a poor historian at time of admission due to underlying dementia; A&O to name, , month of the year, and location, but not purpose in the hospital. She keeps repeating that she does not anyone to "hurt her babies"or the "firefighters". Most of the history is obtained from paperwork sent in from [facility]. No family or caretakers at bedside. Patient failed outpatient treatment for UTI; was on Rocephin but developed a rash. She was then placed on a steroid taper and switch to Macrobid, but became increasingly confused. Last night, the patient started rearranging her room and was reportedly hallucinating. Only oriented to self at that time. Patient is hypertensive at 142/93 at time admission; vitals otherwise stable. ED course: Meropenem 500 mg IV All difficult to obtain ROS at this time, patient denies fever, chest pain, pleu ritic CP, SOB, chest palpitations, or abdominal pain. She is unsure if she has had burning with urination. Per [facility] notes: Patient took 2 doses of ceftriaxone, and developed itchiness and an urticarial rash over her back, bilateral lower extremities, and right arm. Her upper lip also became swollen. No respiratory distress. Ceftriaxone was discontinued on 02/16, and patient was started on a prednisone taper as well as nitrofurantoin. Additionally, patient took all of her regular morning medicines today, including Eliquis. Discharge Exam Gen: elderly female sitting in chair HEENT: NC/AT, anicteric, MMM CVS: s1s2 nl, RRR Lungs: CTAB Abd: nl bowel sounds, soft, NT Ext: no edema Neuro: AAOx3, pt also able to state that she is in the hospital due to urine infection Psych: calm, cooperative Discharge Plan Discharge Items Patient Disposition: Personal Intermediate Reason For Visit: AMS, UTI Discharge Diagnosis: Steroid induced AMS Activity: Resume your previous activity Non-emergency contact: Primary Care Provider Call non-emergency contact if: you have any medication questions and your symptoms worsen Follow-up/Referrals: [facility] [Primary Care Provider] - Diet: Regular Addtl Attending Provider Instructions: follow up with PCP in 7 to 10 days Pending Studies at Discharge: No Stand-Alone Forms: My Clipmarks, Smoking Cessation Skilled Items Patient informed of condition?: Yes DNR: Yes Discharge Level of Care: Other Communicable Disease: No Discharge Prognosis: Stable Lines: None Urinary Catheter: No Medications and DC Order Prescriptions: Continued diclofenac sodium 1 % gel 2 - 4 g TOPICAL QID Qty: 100 0RF Rx Instructions: 2 grams to hand/wrists and 4 grams to knees calcium carbonate 500 mg calcium (1,250 mg) Tablet,Chewable 1,000 mg PO Q6H PRN (Reason: Indigestion) clopidogrel 75 mg tablet 75 mg PO QAM docusate sodium 100 mg Capsule 200 mg PO HS folic acid 1 mg tablet 1 mg PO QAM potassium chloride 10 mEq Capsule, Extended Release 10 meq PO BIDM ipratropium-albuterol 0.5 mg-3 mg(2.5 mg base)/3 mL Solution For Nebulization 3 ml INHALATION Q2H PRN (Reason: Shortness Of Breath Or Wheezing) acetaminophen 325 mg Tablet 650 mg PO Q6 MDD 3 GRAMS/24 HOURS PRN (Reason: PAIN/TEMP >100) isosorbide mononitrate 60 mg tablet extended release 24 hr 60 mg PO QAM levothyroxine 150 mcg tablet 150 mcg PO DAILYBB melatonin 10 mg Tablet 10 mg PO HS cyanocobalamin (vitamin B-12) 2,500 mcg Tablet 2,500 mcg PO QAM omega-3 fatty acids 1,000 mg Capsule 1,000 mg PO QAM Systane Balance 0.6 % Drops 1 drp OPB BIDM buspirone 5 mg Tablet 5 mg PO BID Qty: 60 0RF lisinopril [Zestril] 5 mg Tablet 5 mg PO QAM Qty: 30 0RF duloxetine 60 mg Capsule,Delayed Release(Dr/Ec) 60 mg PO HS Qty: 60 0RF ascorbic acid (vitamin C) [Vitamin C] 1,000 mg Tablet 1 g PO DAILY trazodone 50 mg Tablet 75 mg PO HS pantoprazole [Protonix] 40 mg Tablet,Delayed Release (Dr/Ec) 40 mg PO DAILY Premarin 0.625 mg/gram Cream 0.625 mg VAGINAL HS Rx Instructions: APPLY X 2 WEEKS, THEN STOP WITH LAST DOSE 02/22/25. THEN BEGIN WITH 2XWK ( & TH). Cepacol Lozenge 1 isabel MUCOUS MEMBRANE Q4H PRN (Reason: SORE THROAT/COUGH) Eliquis 5 mg Tablet 5 mg PO BID d-mannose 500 mg Capsule 500 mg PO BID cranberry etncoyb-f-hbyixos 500-50 mg Tablet,Chewable 1 tab PO BID Femdophilus 1 dose PO TID methenamine hippurate 1 gram tablet 1 g PO AMHS Discontinued amlodipine 2.5 mg tablet 2.5 mg PO QAM Admission Data Admit Date/Time: 02/22/25 17:07 Attending Provider: Franchesca Mixon Admit Provider: Santo Wahl [facility] Other Providers: Santo Wahl Hospital Stay Data Consultations 02/22/25 15:49 ED Decision to Admit Stat Diagnostic Imagining Performed 02/22/25 17:[address] [CT head/brain wo con] Stat Discharge Instructions Given to Patient (Per Discharging Provider) follow up with PCP in 7 to 10 days Total Time Total Time Spent Total Time Spent (In Minutes): 35 Coding Level of Care Code 38467 INP/OBS DISCH >30 MIN Diagnoses UTI (urinary tract infection) N39.0 Altered mental status R41.82 Hx pulmonary embolism Z86.711
== END 2025-02-24 16:33 | DRG 690 ==
LOC: ED 12:04 → EDINP 17:07 → INTOOBSV 17:07 → SUATTDRO 17:07 → 3W 19:06